=== PATIENT | female | born 2000 | race Caucasian/White ===

== ENCOUNTER 2022-01-28 15:42 | Emergency (ER) | payer BC, SELFPAY ==
[2022-01-28 15:50] VITALS: BP 108/70; PULSE 106; RESP 20; TEMP 36.6; O2SAT 99; BMI 20.3
--- NOTE | 2022-01-28 16:19 | ED.SKABFB ---
HPI - Skin/Abscess/Foreign Bdy General Chief complaint: Skin/Abscess/Foreign Body Stated complaint: Possible leg infection Time Seen by Provider: 01/28/22 15:44 Source: patient Mode of arrival: ambulatory Limitations: no limitations History of Present Illness HPI narrative: Patient presents with skin lesion on her lateral left calf for the past 2 days. Initially started as a localized tender papule. Over the last 2 days she has noticed increased surrounding redness. Last night she started having fatigue, body aches and a mild headache. There is no fever, no nausea vomiting. She has noted no drainage from the lesion. She showed it to a co-worker who marked the surrounding area of redness and applied some antibiotic ointment and told her to seek medical care. Patient is not immunocompromised, she does not have any history of diabetes or other chronic illness. She had a similar papular lesion on her elbow about a month ago that did not require any management and did not have surrounding redness. She also had what sounds like a steroid injection into a stye of her left eyelid around this same time frame, is improving. She notes no other systemic symptoms like nausea or vomiting. No prior history of MRSA infections, no recent exposure to unusual bacterial infections, no pertinent travel. She has a notable history of anxiety disorder but denies any other long-term health problems. Long-term medications are Vyvanse and an SSRI. Related Data Home Medications Medication Instructions Recorded Confirmed fluoxetine 40 mg capsule 40 mg PO DAILY 01/28/22 01/28/22 lisdexamfetamine 40 mg capsule 40 mg PO DAILY 01/28/22 01/28/22 (Vyvanse) Previous Rx's Medication Instructions Recorded sulfamethoxazole 800 1 tab PO BID #20 tabs 01/28/22 mg-trimethoprim 160 mg tablet Allergies Allergy/AdvReac Type Severity Reaction Status Date / Time No Known Drug Allergies Allergy Verified 01/28/22 15:55 Review of Systems Narrative: Notable for the generalized and skin symptoms as above. Denies any other HEENT, respiratory, cardiovascular, GI or urinary changes. [facility] Social History Smoking Status: Never smoker Do you use any of these nicotine containing products: E-Cigarettes How often do you have a drink containing alcohol: 2-3 times a week How many standard drinks containing alcohol do you have on a typical day: 7 to 9 How often do you have six or more drinks on one occasion: Weekly AUDIT-C Alcohol total score: 9 Non-prescribed substance use: denies use Exam Const: Vital Signs, click to edit/add: Vital Signs - 24 hr 01/28/22 15:50 Temperature 97.8 F Pulse Rate [Left P ulse Oximeter] 106 H Respiratory Rate 20 Blood Pressure [Ri ght Upper Arm] 108/70 Pulse Oximetry 99 Oxygen Delivery Me thod Room Air Documenting provider has reviewed patient's vital signs: yes Common normals: no apparent distress General appearance: cooperative and well kempt; not ill appearing HENMT: Common normals: normocephalic Head and scalp: normocephalic Mouth: oral and palatal mucosa normal Throat: posterior oropharynx normal Eye: Common normals: conjunctivae normal and no scleral icterus General eye: normal appearance of both eyes Conjunctiva: conjunctiva(e) normal Neck & C-Spine: Common normals: full ROM and no lymphadenopathy Resp: Common normals: normal respiratory effort and clear to auscultation bilaterally Auscultation: clear to auscultation bilaterally Cardio: Common normals: regular rate, regular rhythm, S1 normal heart sound, S2 normal heart sound, no murmurs and peripheral pulses 2+ throughout Rate: regular rate Rhythm: regular rhythm Heart sounds: S1 normal and S2 normal Peripheral pulses: pulses 2+ throughout Extremity: Other: Left knee and ankle with normal range of motion. There is a 1 cm pustular lesion on the lateral left calf. There is a 5 cm wide by 7 cm tall surrounding area of induration and erythema with warmth. No fluctuance, no signs of foreign body. Mildly tender to palpation. Area of cellulitis has been marked. Normal pedal pulses. Healed similar pustular lesion on the right elbow in area described. Neuro: Motor exam: no tremor noted and no movement abnormalities noted Psych: Appearance: well kempt Activity/motor behavior: appropriate eye contact Mood and affect: euthymic mood Skin: Narrative: Healed skin lesion right elbow, left calf lesion in area described, no other areas of broken skin, rashes or signs of trauma. Course Vital Signs Vital signs: Initial Vital Signs Temperature 97.8 F 01/28/22 15:50 Temperature Source Temporal Artery Scan 01/28/22 15:50 Pulse Rate 106 H 01/28/22 15:50 Respiratory Rate 20 01/28/22 15:50 Blood Pressure 108/70 01/28/22 15:50 Blood Pressure Mean 82 01/28/22 15:50 Blood Pressure Position Sitting 01/28/22 15:50 Pulse Oximetry 99 01/28/22 15:50 Oxygen Delivery Method 01/28/22 15:50 Vital Signs Temperature 97.8 F 01/28/22 15:50 Pulse Rate 106 H 01/28/22 15:50 Respiratory Rate 20 01/28/22 15:50 Blood Pressure 108/70 01/28/22 15:50 Pulse Oximetry 99 01/28/22 15:50 Oxygen Delivery Method 01/28/22 15:50 Temperature 97.8 F 01/28/22 15:50 Pulse Rate 106 H 01/28/22 15:50 Respiratory Rate 20 01/28/22 15:50 Blood Pressure 108/70 01/28/22 15:50 Pulse Oximetry 99 01/28/22 15:50 Oxygen Delivery Method 01/28/22 15:50 MDM - Skin/Abscess/Foreign Bdy MDM Narrative Medical decision making narrative: Cellulitis without signs of abscess. Discussed plan of care, importance of follow-up if not improving in 48 hours. Counseled that the lesion may worsen for the 1st 24 hours on antibiotics. manager supply chain the antibiotics today so that they are available 1st thing tomorrow morning for your next dose, as it can be more difficult to get these on Sundays. Okay to use Tylenol and ibuprofen as needed. Rest for today. All questions answered. Discharge Plan Discharge Clinical Impression: Cellulitis Patient Disposition: Home, Self-Care Condition: Stable Instructions: Cellulitis (ED) Additional Instructions: I am suspecting that you carry a skin bacteria known as MRSA. This likely caused the elbow lesion that you showed me today. The infection in your leg is also caused by bacteria. We need to start antibiotics. As we discussed, please remember that this can worsen for the 1st 24 hours. Please rock picker the antibiotics today and your next dose will be due 1st thing tomorrow morning. Do your best to stay off of your feet today to reduce swelling. It is okay to take Tylenol and/or ibuprofen for fever. It is common that headaches, nausea, fatigue and body aches when you have cellulitis. He should be improving within 48 hours. Based on your vital signs, I do not recommend blood work, blood cultures or additional tests at this time. Begin the antibiotics as discussed and follow up if you are not starting to notice improvement on Sunday. Come back to the emergency department if you are significantly ill in the interim. Activity Level: Activity as Tolerated Discharge Diet: Regular Prescriptions: New sulfamethoxazole-trimethoprim 800-160 mg tablet 1 tab PO BID Qty: 20 0RF No Action fluoxetine 40 mg capsule 40 mg PO DAILY Label Comments: TAKE 1 CAPSULE BY MOUTH EVERY DAY Vyvanse 40 mg capsule 40 mg PO DAILY Label Comments: TAKE 1 CAPSULE BY MOUTH EVERY DAY Stand Alone Forms: Package Conciergeth Info Instructions
--- OUTSIDE RECORDS SUMMARY | 2022-01-28 16:45 | XMS_ITS | Encounter Summary ---
:2000 Author Organization [facility] Address [address] [facility] [place] [address] Care Team Providers Name Role Phone Maribel Limon MD Primary Care Provider [phone] Kassi Vidales MD Unavailable Reason for Visit Reason Comments Urgent Care Consult expose to strep Encounter Details Date Type Department Care Team Description 09/12/2020 Office Visit [facility] Maribel Stephens Strep th roat (Primary Urgent Care Adam Clark MD Dx) [address] [phone] Social History Tobacco Use Types Packs/Day Years Used Date Light Tobacco Smoker Smokeless Tobacco: Never Used Comments: smoke weeds sometimes Financial Resource Strain Answer Date Recorded How hard is it for you to pay for the very basics like Not h angella at all 01/26/2021 food, housing, medical care, and heating? Food Insecurity Answer Date Recorded Within the past 12 months, you worried that your food would Never true 01/26/2021 run out before you got money to buy more. Within the past 12 months, the food you bought just didn't N ever true 01/26/2021 last and you didn't have money to get more. Housing Stability Answer Date Recorded In the last 12 months, was there a time when you were not No 01/26/2021 able to pay the mortgage or rent on time? In the last 12 months, how many places have you lived? Not a sked In the last 12 months, was there a time when you did not hav e No 01/26/[address] or slept in a snf (including now)? Sex Assigned at Date Recorded Not on file COVID-19 Exposure Response Date Recorded In the last month, have you been in contact with No / Unsure 09/12/2020 6:59 PM CDT someone who was confirmed or suspected to have Coronavirus / COVID-19? documented as of this encounter Last Filed Vital Signs Vital Sign Reading Time Taken Comments Blood Pressure 115/78 09/12/2020 7:12 PM CDT Pulse 74 09/12/2020 7:12 PM CDT Temperature 36.8 ??C (98.2 ??F) 09/12/2020 7:12 PM CDT Respiratory Rate 18 09/12/2020 7:12 PM CDT Oxygen Saturation 97% 09/12/2020 7:12 PM CDT Inhaled Oxygen Concentration - - Weight 66.7 kg (147 lb) 09/12/2020 7:12 PM CDT Height - - Body Mass Index - - documented in this encounter Patient Instructions Patient InstructionsMaribel Stephens MD - 09/12/2020 7:10 PM CDT Images from the original note were not included. Patient Education Pharyngitis: Strep (Presumed) You have pharyngitis (sore throat). The healthcare staff may think your sore throat is caused by a bacteria called Group A streptococcus (strep).??This is often called strep throat. This is diagnosed by either a rapid strep test, which gives immediate results, or a throat culture, or both. Strep throat can cause throat pain that is worse when swallowing, aching all over, headache,??swollen lymph nodes or glands in the neck, and fever. The infection is contagious. It often spreads by coughing, kissing,??or touching others after touching your mouth or nose. An antibiotic is given to treat the infection. Antibiotics are prescribed by doctors to treat bacterial infections, not viral infections. Home care ?? Rest at home. Drink plenty of fluids so you won???t get dehydrated. ?? Stay home from work or school for the first 24 hours of taking the antibiotics, or as directed bythe healthcare provider. After this time, you won't be contagious. You can then return to work or school if you are feeling better, or as directed by the provider.? Take the antibiotic medicine for the full 10 days, or as directed by the provider, even when you feel better or your symptoms improve. This is very important to make sure the infection is fully treated. It's also important to prevent medicine-resistant germs from growing. It's also the best way to prevent rheumatic fever, which can affect your heart and other parts of the body.??If you were given an antibiotic shot, your provider will tell you if more antibiotics are needed. ?? You may use acetaminophen or ibuprofen to control pain or fever, unless another medicine was prescribed for this. If you have chronic liver or kidney disease or ever had a stomach ulcer or gastrointestinal bleeding, talk with your provider before using these medicines. ?? Use throat lozenges or a throat-numbing spray to help reduce throat pain. Gargling with warm saltwater can also help reduce throat pain. Dissolve 1/2 teaspoon of salt in 1 glass of warm water.? Don???t eat salty or spicy foods. These can irritate the throat. Follow-up care Follow up with your healthcare provider or our staff if you don't feel better in 72 hours, or as directed. When to get medical advice Call your healthcare provider right away if any of these occur: ?? Fever of??100.4??F (38??C), or higher, or as directed by your provider ?? New or worse ear pain, sinus pain, or headache ?? Painful lumps in the back of neck ?? Stiff neck ?? Lymph nodes that get larger or neck swelling ?? Can???t open mouth wide due to throat pain ?? Signs of dehydration, such as very dark urine or no urine, sunken eyes, dizziness ?? Noisy breathing ?? Muffled voice ?? New rash ?? Symptoms are worse ?? New symptoms develop Call 911 Call 911 if you have any of these symptoms: ?? Can't swallow, especially saliva, with a lot of drooling ?? Trouble breathing or wheezing ?? Feeling faint ?? Can't talk ?? Feeling of doom Prevention Here are steps you can take to help prevent an infection: ?? Keep good handwashing habits. ?? Don???t have close contact with people who have sore throats, colds, or other upper respiratory infections. ?? Don???t smoke, and stay away from secondhand smoke. ?? Stay up to date with all of your vaccines. [employer] last reviewed this educational content on 06/07/2019 ?? 7799-4074 [employer]. All rights reserved. This information is not intended as a substitute for professional medical care. Always follow your healthcare professional's instructions. Patient Education Pharyngitis: Strep (Confirmed) You have had a positive test for strep throat. Strep throat is a contagious illness. It's spread by coughing, kissing, sharing glasses or eating utensils, or by touching others after touching your mouth or nose. Symptoms include throat pain that is worse with swallowing, aching all over, headache, swollen lymph nodes at the front of the neck, and red swollen tonsils sometimes with white patches and fever. It's treated with antibiotic medicine. This should help you start to feel better in 1 to 2 days. Home care ?? Rest at home. Drink plenty of fluids so you won't get??dehydrated. ?? No work or school for the first 2 days of taking the antibiotics. You can then return to school or work if you are feeling better, have been taking the antibiotic for at least 24 hours and don't have a fever.? Take??antibiotic medicine for the full 10 days, even if you feel better. This is very important to ensure the infection is treated completely.??It's also important to prevent medicine-resistant germs from developing.??If you were given an antibiotic shot, you don't need any more antibiotics. ?? You may use acetaminophen??or ibuprofen to control pain or fever, unless another medicine was prescribed for this. Talk with your healthcare provider before taking these medicines if you have??chronic liver or kidney disease or if you have??had a stomach ulcer or gastrointestinal bleeding. ?? Throat lozenges or sprays help reduce pain. Gargling with warm saltwater will also reduce throat pain. Dissolve 1/2 teaspoon of salt in 1 glass of warm water. This may be useful just before meals.? Soft foods and cool or warm fluids are best. Don't eat salty or spicy foods. Follow-up care Follow up with your healthcare provider or our staff if you don't get better over the next week. When to get medical advice Call your healthcare provider right away or get immediate medical care if any of these occur: ?? Fever of 100.4??F (38??C) or higher, or as directed by your healthcare provider ?? New or worsening ear pain, sinus pain, or headache ?? Painful lumps in the back of neck ?? Stiff neck ?? Lymph nodes??getting larger or becoming soft in the middle ?? You have trouble swallowing liquids or you can't??open your mouth wide because of??throat pain ?? Signs of dehydration. These include very dark urine or no urine, sunken eyes, and dizziness. ?? Noisy breathing ?? Muffled voice ?? Rash Call 911 Call 911right away if you: ?? Have trouble breathing ?? Can't swallow or talk Prevention Here are steps you can take to help prevent an infection: ?? Wash your hands often with soap and clean, running water for at least 20 seconds. ?? Don???t have close contact with people who have sore throats, colds, or other upper respiratory infections. ?? Don???t smoke, and stay away from secondhand smoke. [employer] last reviewed this educational content on 07/06/2019 ?? [id number] [employer]. All rights reserved. This information is not intended as a substitute for professional medical care. Always follow your healthcare professional's instructions. documented in this encounter Progress Notes Maribel Stephens MD - 09/12/2020 7:10 PM CDT ASSESSMENT/ PLAN: Strep throat - amoxicillin (AMOXIL) 875 MG tablet; Take 1 tablet (875 mg) by mouth 2 times daily Patient was counseled that to prevent spreading the strep infection that she should stay out of public places, work or school until she has completed 24 hours of antibiotic treatment Symptomatic treat with gargles, lozenges, and OTC analgesic as needed. Follow-up with primary clinicif not improving. SUBJECTIVE: Chief Complaint Patient presents with ??? Urgent Care ??? Consult expose to strep Temi Sam is a 20 year old female with a chief complaint of sore throat. Onset of symptoms was today . Her boyfriend just tested positive for strep throat Course of illness: sudden onset, still present and constant. Severity moderate Current and Associated symptoms: sore throat Treatment measures tried include None tried. Predisposing factors include exposure to strep. No past medical history on file. There is no problem list on file for this patient. ALLERGIES: Patient has no known allergies. FLUoxetine (PROZAC) 20 MG capsule, TAKE 3 CAPSULES BY MOUTH DAILY levonorgestrel (MIRENA) 20 MCG/24HR IUD, 1 each by Intrauterine route once No current facility-administered medications on file prior to visit. Social History Tobacco Use ??? Smoking status: Light Tobacco Smoker ??? Smokeless tobacco: Never Used ??? Tobacco comment: smoke weeds sometimes Substance Use Topics ??? Alcohol use: Not on file No family history on file. ROS: CONSTITUTIONAL:NEGATIVE for fever, chills, INTEGUMENTARY/SKIN: NEGATIVE for worrisome rashes, or lesions EYES: NEGATIVE for vision changes or irritation RESP:NEGATIVE for significant cough or SOB GI: NEGATIVE for nausea, abdominal pain, or change in bowel habits OBJECTIVE: BP 115/78 Pulse 74 Temp 98.2 ??F (36.8 ??C) Resp 18 Wt 66.7 kg (147 lb) SpO2 97% GENERAL APPEARANCE: healthy, alert and no distress EYES: EOMI, PERRL, conjunctiva clear HENT: ear canals and TM's normal. Nose normal. Pharynx erythematous with no exudate noted. NECK: supple, non-tender to palpation, no adenopathy noted RESP: lungs clear to auscultation - no rales, rhonchi or wheezes CV: regular rates and rhythm, normal S1 S2, no murmur noted ABDOMEN: soft, nontender, no HSM or masses and bowel sounds normal SKIN: no suspicious lesions or rashes Rapid Strep test is positive documented in this encounter Plan of Treatment Not on filedocumented as of this encounter Procedures Procedure Name Priority Date/Time Associated Comments Diagnosis STREPTOCOCCUS A RAPID Routine 09/12/2020 7:15 PM Results for this SCREEN W REFELX TO PCR CDT proce dure are in the results section. documented in this encounter Results (ABNORMAL) Streptococcus A Rapid Scr w Reflx to PCR (09/12/2020 7:15 PM CDT) Component Value Ref Test Analysis Performed At [facility] Range Method Time Signature Strep Specimen Throat 09/12/2020 [place] Description 7:20 PM CDT [facility] Streptococcus Positive (A) NEG^Nega 09/12/2020 [place] Group A Rapid tive 7:33 PM CDT CLINICS [facility] Comment: Group A Streptococcal antigen d etected by immunoassay. Specimen Anatomical Collection Method Collection Time Receive d Time (Source) Location / / Volume Laterality Specimen from 09/12/2020 7:15 PM 09/13/19 7:22 throat CDT PM CDT (specimen) Maribel Stephens MD LAB - MICRO GENERAL ORDERABL Performing Organization Address City/State/ZIP Code Phon e Number [facility] [address] [place] [address] documented in this encounter Visit Diagnoses Diagnosis Strep throat - Primary Streptococcal sore throat documented in this encounter Care Teams Vat Operator Relationship Specialty Start Date End Date Maribel Limon, PCP - General Pediatrics 02/19/1701/25 Kassi Vidales MD Pediatric Gastroenterology [facility] [place] [id number] documented as of this encounter
--- OUTSIDE RECORDS SUMMARY | 2022-01-28 16:45 | XMS_ITS | Clinical Summary ---
:2000 Author Organization [place] Address [address] [facility] [place] [address] Care Team Providers Name Role Phone Kassi Vidales MD Unavailable [phone] Lavern Tristan MD Primary Care Provider [phone] Allergies No known active allergies Medications Medication Sig Dispensed Refills Start Date End Date Status FLUoxetine (PROZAC) TAKE 3 CAPSULES BY 0 08/27/2020 Active 20 MG capsule MOUTH DAILY levonorgestrel 1 each by 0 Activ e (MIRENA) 20 MCG/24HR Intrauterine route IUD once amoxicillin (AMOXIL) Take 1 tablet (875 20 tablet 0 09/12/2020 Active 875 MG mg) by mouth 2 tabletIndications: times daily Strep throat Active Problems No known active problems Social History Tobacco Use Types Packs/Day Years [...] place to sleep or slept in a mcc (including now)? Sex Assigned at Date Recorded Not on file Last Filed Vital Signs Vital Sign Reading Time Taken Comments Blood Pressure 115/78 09/12/2020 7:12 PM CDT Pulse 74 09/12/2020 7:12 PM CDT Temperature 36.8 ??C (98.2 ??F) 09/12/2020 7:12 PM CDT Respiratory Rate 18 09/12/2020 7:12 PM CDT Oxygen Saturation 97% 09/12/2020 7:12 PM CDT Inhaled Oxygen Concentration - - Weight 66.7 kg (147 lb) 09/12/2020 7:12 PM CDT Height 165.1 cm (5' 5) 03/04/2017 6:56 PM CDT Body Mass Index - - Plan of Treatment Health Maintenance Due Date Last Done Comments ADVANCE CARE PLANNING 2001 ANNUAL REVIEW OF HM ORDERS 2001 CHLAMYDIA SCREENING 2001 Pneumococcal Vaccine: 08/21/2007 11/25/2002, 05/23/2002, Pediatrics (0 to 5 Years) 02/18/2002, Additional and At-Risk Patients (6 to history exists 64 Years) (1 - PCV) DTAP/TDAP/TD IMMUNIZATION 2012 08/23/2006, 11/25/2002 , (6 - Tdap) 02/18/2002, Additional history exists HIV SCREENING 2016 HEPATITIS C SCREENING 08/21/2019 COVID-19 Vaccine (3 - 10/10/2020 08/15/2020, 07/18/2020 Booster for Moderna series) PHQ-2 (once per calendar 05/07/2021 year) INFLUENZA VACCINE (#1) 2022 04/28/2021, 02/19/2020, 07/18/2019, Additional history exists PREVENTIVE CARE VISIT 04/28/2022 04/28/2021, 12/15/2019, 11/13/2018 HEPATITIS B IMMUNIZATION Completed 08/21/2002, 05/23/2002, 02/18/2002 IPV IMMUNIZATION Completed 08/23/2006, 08/21/2002, 2001, Additional history exists HPV IMMUNIZATION Completed 07/15/2013, 02/07/2013, 12/25/2012 MENINGITIS IMMUNIZATION Aged Out No longe r eligible based on patient 's age to complete this topic Insurance Payer Benefit Plan / Subscriber ID Effective Dates Phone Addre ss Type Group BCBS BCBS OUT OF [id number] 2017-Lilli [phone] [address] [address] Indemnity STATE [address] [place] [address] Care Teams Emergency Department Rn Relationship Specialty Start Date End Date Lavern Tristan PCP - General Pediatrics 01/26/21 MD Caitlyn [facility] [address] [place], [place] [id number] Kassi Vidales MD Pediatric Gastroenterology [address] [place] [id number]
--- OUTSIDE RECORDS SUMMARY | 2022-01-28 16:46 | XMS_ITS ---
:2000 Author Care Team Providers Name Role Phone Wilbert Barney Primary Care Provider Unavailable Allergies Code Code System Name Reaction Severity Status Onset NKDA ? Medications Name Status Start Date Stop Date ? ? amoxicillin 500 mg capsule Active ? Not a vailable TAKE 1 CAPSULE BY MOUTH TWICE DAILY FOR 10 DAYS amoxicillin 875 mg tablet Active ? Not av ailable azithromycin 250 mg tablet Active ? Not a vailable clindamycin HCl 300 mg capsule Active ? N ot available TAKE 1 CAPSULE BY MOUTH TWICE DAILY FOR 7 DAYS COVID-19 test specimen collection Active ? Not available TEST DIRECTED TODAY dextroamphetamine-amphetamine ER 10 mg 24hr capsule,extend relea se Active ? Not available TAKE 1 CAPSULE BY MOUTH EVERY DAY IN THE MORNING FOR 14 DAYS dextroamphetamine-amphetamine ER 20 mg 24hr capsule,extend relea se Active ? Not available TAKE 1 CAPSULE BY MOUTH EVERY DAY IN THE MORNING fluconazole 150 mg tablet Active ? Not av ailable fluoxetine 20 mg capsule Active ? Not liana ilable TAKE ONE CAPSULE BY MOUTH DAILY FOR 7 DAYS THEN INCREASE TO 2 C APSULES DAILY fluoxetine 60 mg tablet Active ? Not avai lable TAKE 1 TABLET BY MOUTH EVERY DAY metronidazole 500 mg tablet Active ? Not available TAKE 1 TABLET BY MOUTH TWICE DAILY FOR 7 DAYS Problems Name Status Onset Date Source ? Acute Pharyngitis Active 07/27/2021 ? Procedures None recorded. Results Lab Results Date Name Specimen Result Interpretation Description Value Range Status Address ? 07/27/2021 Mononucleosis, Blood ? Result negative ? ? [facility] [place]: [address] , [place] 07/27/2021 Streptococcus Throat ? Result positive ? ? [facility] [place]: [address] , [place] Past Encounters 07/27/2021 Acute Pharyngitis Wilbert Barney PA: [address], [place] [address], Ph. Social History None recorded. Vaccine List Vaccine Type COVID-19, mRNA, LNP-S, PF, 100 mcg/0.5 m L dose (Moderna) 07/18/2020 08/15/2020 04/19/2021 DTaP 2001 2001 02/18/2002 08/23/2006 DTaP-Hib 11/25/2002 Hep A, ped/adol, 2 dose 08/23/2006 01/10/2008 Hep B, adolescent or pediatric 05/23/2002 08/21/2002 Hep B, unspecified formulation 02/18/2002 Hib (PRP-T) 2001 2001 02/18/2002 HPV, quadrivalent 12/25/2012 02/07/2013 07/15/2013 influenza, injectable, quadrivalent 02/19/2020 influenza, injectable, quadrivalent, pre servative free 03/02/2015 03/05/2017 07/18/2019 04/28/2021 influenza, live, intranasal 02/13/2008 12/24/2009 influenza, live, intranasal, quadrivalen t 12/25/2012 influenza, seasonal, injectable 03/20/2007 influenza, seasonal, injectable, preserv ative free 05/16/2012 IPV 2001 2001 08/21/2002 08/23/2006 meningococcal B, OMV 12/15/2019 04/02/2020 meningococcal MCV4P 12/25/2012 10/12/2017 MMR 08/21/2002 MMRV 08/23/2006 pneumococcal conjugate PCV 7 2001 02/18/2002 05/23/2002 11/25/2002 Tdap 12/25/2012 varicella 08/21/2002 Plan of Care Patient Instructions Push fluids and rest. Tylenol 1 gram three times daily as need ed for pain. Ibuprofen 600mg three times daily as nee ded for pain. Gargles or lozenges as needed for comfor t. Take Amoxicillin as prescribed. See care instructions. PCP or UC follow up in 4-5 days if not i mproving, sooner if problems, to ED if worsening. Reminders Provider Appointments None recorded. ? ? Lab None recorded. ? ? Referral None recorded. ? ? Procedures None recorded. ? ? Surgeries None recorded. ? ? Imaging None recorded. ? ? Vitals Blood Pressure 94/67 mm[Hg]
--- OUTSIDE RECORDS SUMMARY | 2022-01-28 16:46 | XMS_ITS | Encounter Summary ---
:2000 Author Organization [facility] Address [address], [place] [address] Care Team Providers Name Role Phone Unavailable Primary Care Provider Unavailable Reason for Visit Procedure/Equipment (Routine) - Incomplete Specialty Diagnoses / Procedures Referred By Contact Refer red To Contact Diagnoses Pain in estrella, unspecified laterality De Ball MD Procedures XR Tibia Fibula Lt 2 Views [address] [facility] [place], [place] [address] Referral ID Status Reason Start Date Expiration Date Visits V isits Requested Authorized [id number] Incomplete 12/04/2018 03/04/2020 1 1 Encounter Details Date Type Department Care Team Description 12/04/2018 [facility] De Ball, Pain in estrella, Procedure [address] [facility] [place] [id number] [phone] Social History Tobacco Use Types Packs/Day Years Used Date Smoking Tobacco: Never Sex Assigned at Date Recorded Not on file documented as of this encounter Plan of Treatment Not on filedocumented as of this encounter Procedures Procedure Name Priority Date/Time Associated Diagnosis Comme nts XR TIBIA FIBULA LT Routine 12/04/2018 2:35 PM Pain in estrella, Re sults for this 2 VIEWS CDT unspecified procedure are i n laterality the results section. XR TIBIA FIBULA RT Routine 12/04/2018 2:35 PM Pain in estrella, Re sults for this 2 VIEWS CDT unspecified procedure are i n laterality the results section. documented in this encounter Results XR Tibia Fibula Rt 2 Views (12/04/2018 2:35 PM CDT) Anatomical Region Laterality Modality Lower Extremity, Knee, Leg, Foot & Ankle Digital Radiography Specimen (Source) Anatomical Collection Method Collection Time Re ceived Time Location / / Volume Laterality 12/04/2018 2:23 PM CDT Impressions 12/04/2018 2:57 PM CDT COMPARISON: ??None. FINDINGS: ??Right tib-fib 2 views. No ac raza bony abnormalities. Joint spaces are intact Procedure Note Rowdy Call MD - 12/04/2018 IMPRESSION COMPARISON: None. FINDINGS: Right tib-fib 2 views. No acut e bony abnormalities. Joint spaces are intact De MONTGOMERY GD XR Tibia Fibula Lt 2 Views (12/04/2018 2:35 PM CDT) Anatomical Region Laterality Modality Lower Extremity, Knee, Leg, Foot & Ankle Digital Radiography Specimen (Source) Anatomical Collection Method Collection Time Re ceived Time Location / / Volume Laterality 12/04/2018 2:23 PM CDT Impressions 12/04/2018 2:55 PM CDT COMPARISON: ??None. FINDINGS: ??Left tib-fib 2 views. No acu te bony abnormalities. Small eccentric lucent and sclerotic lesion which is well-circumscribed in the lateral aspect of the distal tibial metadiaphysis most likel y represents a small fibrous cortical de fect. Visualized joint spaces are intact. Procedure Note Rowdy Call MD - 12/04/2018 IMPRESSION COMPARISON: None. FINDINGS: Left tib-fib 2 views. No acute bony abnormalities. Small eccentric lucent and sclerotic lesion which is well-circumscribed in the lateral aspect of the distal tibial metadiaphysis most likely represents a small fibrous cortical defect. Visualize d joint spaces are intact. De Ball MD RAD GD documented in this encounter Visit Diagnoses Diagnosis Pain in estrella, unspecified laterality documented in this encounter
--- OUTSIDE RECORDS SUMMARY | 2022-01-28 16:46 | XMS_ITS | Encounter Summary ---
:2000 Author Organization [place] Address [address] [place] [address] Care Team Providers Name Role Phone Maribel Limon MD Primary Care Provider [phone] Kassi Vidales MD Unavailable [phone] Reason for Visit Reason Comments Abdominal Pain intermittent lower abd pain that happens every day, with bloating, c nausea and diarrhea/constipa tion X 2 months, seen at PCP and referred to pedicatric GI, [facility], no tests have been run yet. also c/o overall exhausion, falling asleep in class and going to bed at 8p. per mom pt had a sync opal episdoe around 1815 tonight Encounter Details Date Type Department Care Team Description 03/04/2017 Emergency [facility] Laura Aguero, Abd ominal pain, generalized; [facility] Emergency Hypersomnolence Dept [facility] [address] [place] [address] [place] [address] [facility] [address] (Wo rk) Social History Tobacco Use Types Packs/Day Years Used Date Never Assessed Financial Resource Strain Answer Date Recorded How [...] on file documented as of this encounter Last Filed Vital Signs Vital Sign Reading Time Taken Comments Blood Pressure 116/79 03/04/2017 8:00 PM CDT Pulse 53 03/04/2017 8:00 PM CDT Temperature 36.4 ??C (97.5 ??F) 03/04/2017 6:56 PM CDT Respiratory Rate 20 03/04/2017 6:56 PM CDT Oxygen Saturation 99% 03/04/2017 6:56 PM CDT Inhaled Oxygen Concentration - - Weight 55.1 kg (121 lb 6.4 oz) 03/04/2017 6:56 PM CDT Height 165.1 cm (5' 5) 03/04/2017 6:56 PM CDT Body Mass Index 20.2 03/04/2017 6:56 PM CDT Body Mass Index Percentile 50.03 % 03/04/2017 6:56 PM CD T Growth Chart: [facility] (Girls, 2-20 Years) documented in this encounter Discharge Instructions Discharge InstructionsPoLaura hemphill MD - 03/04/2017 8:58 PM CDT Images from the original note were not included. MiraLAX 2 times a day, increase your fluid intake. Set up an appointment with your primary doctor inthe clinic this week. Abdominal Pain in Children Children often complain of a ???tummy ache.?? This is pain in the stomach or belly. Abdominal pain is very common in children. In many cases there???s no serious cause. But stomach pain can sometimes point to a serious problem, such as appendicitis, so it is important to know when to seek help. Causes of abdominal pain Abdominal pain in children can have??many possible causes. Any problem with the stomach or intestines can lead to abdominal pain. Common problems include constipation, diarrhea, or gas. Infection of the appendix (appendicitis) almost always causes pain. An infection in the bladder or urinary tract, oreven infection in the throat or ear, can cause a child to feel pain in the belly. And eating too much food, food that has gone bad, or food that the child has a hard time digesting can lead to abdominal pain. For some children, stress or worry about some upcoming event, such as a test, causes them to feel real pain in their bellies. Call 911 or go to the emergency room Consider it an emergency if your child:? Has blood or pus in vomit or diarrhea, or has green vomit ?? Shows signs of bloating or swelling in the belly ?? Repeatedly arches his back or draws his or her knees to the chest ?? Has increased or severe pain ?? Is unusually drowsy, listless, or weak ?? Is unable to walk When to call the healthcare provider Children may complain of a tummy ache for many reasons. Many cases can be soothed with rest and reassurance. But if your child shows any of the symptoms listed below, call the healthcare provider: ?? Abdominal pain that lasts longer than 2 hours. ?? Fever (see Fever and children, below) ?? Inability to keep even small amounts of liquid down. ?? Signs of dehydration, such as no urine output for more than 8 hours, dry mouth and lips, and feeling very tired.? Pain during urination. ?? Pain in??one specific area, especially low on the right side of the belly. Treating abdominal pain If a healthcare provider???s attention is needed, he or she will examine the child to help find the cause of the pain. Certain causes, such as appendicitis or a blocked intestine, may need emergency treatment. Other problems may be treated with rest, fluids, or medicine. If the healthcare provider can???t find a physical reason for your child???s pain, he or she can help you find other factors, such as stress or worry, that might be making your child feel sick. At home, you can help the child feel better by doing the following: ?? Have your child lie face down if he or she appears to be suffering from gas pain. ?? If your child has diarrhea but is hungry, feed him or her a regular diet, but avoid fruit juice or soda. These are high in sugar and can worsen diarrhea. Sports drinks such as??electrolyte solutionsalso may contain lots of??sugar, so be sure to read labels. Water is fine.? Avoid severely limiting your child's diet. Doing so may cause the diarrhea to last longer. ?? Have your child take any prescribed medicines as directed by your healthcare provider. ?? Check with your healthcare provider before giving your child any qemu-xgj-lylffnb medicines. Preventing abdominal pain If your child is prone to abdominal pain, the following things may help: ?? Keep track of when your child gets the pain. Make note of any foods that seem to cause stomach pain. ?? Limit the amount of sweets and snacks that your child eats. Feed your child plenty of fruits, vegetables, and whole grains. ?? Limit the amount of food you give your child at??one time. ?? Make sure your child washes his or her hands before eating. ?? Don???t let your child eat right before bedtime. ?? Talk with your child about anything that may be causing him or her worry or anxiety. ?? Fever and children Always use a digital thermometer to check your child???s temperature. Never use a mercury thermometer. For infants and toddlers, be sure to use a rectal thermometer correctly. A rectal thermometer may accidentally poke a hole in (perforate) the rectum. It may also pass on germs from the stool. Always follow the product maker???s directions for proper use. If you don???t feel comfortable taking a rectal temperature, use another method. When you talk to your child???s healthcare provider, tell him or her which method you used to take your child???s temperature. Here are guidelines for fever temperature. Ear temperatures aren???t accurate before 6 months of age. Don???t take an oral temperature until your child is at least 4 years old. Infant under 3 months old: ?? Ask your child???s healthcare provider how you should take the temperature. ?? Rectal or forehead (temporal artery) temperature of 100.4??F (38??C) or higher, or as directed bythe provider ?? Armpit temperature of 99??F (37.2??C) or higher, or as directed by the provider Child age 3 to 36 months: ?? Rectal, forehead (temporal artery), or ear temperature of 102??F (38.9??C) or higher, or as directed by the provider ?? Armpit temperature of 101??F (38.3??C) or higher, or as directed by the provider Child of any age: ?? Repeated temperature of 104??F (40??C) or higher, or as directed by the provider ?? Fever that lasts more than 24 hours in a child under 2 years old. Or a fever that lasts for 3 days in a child 2 years or older. ?? Date Last Reviewed: 11/05/2015 ?? [id number] [employer]. [address] [place] [address]. All rights reserved. This information is not intended as a substitute for professional medical care. Always follow your healthcare professional's instructions. documented in this encounter Medications at Time of Discharge Medication Sig Dispensed Refills Start Date End Date Sertraline HCl (ZOLOFT Take 25 mg by mouth 0 09/12/2020 PO) daily documented as of this encounter ED Notes Hermila Lackey RN - 03/04/2017 6:58 PM CDT Bed: ED19 Expected date: Expected time: Means of arrival: Comments: Triage - abd pain Laura Aguero MD - 03/04/2017 6:50 PM CDT History Chief Complaint: Abdominal Pain HPI Temi Sam is an otherwise healthy, fully immunized, 16 year old female who presents with parents for intermittent lower abdominal pain. Patient reports that she has been experiencing abdominal pain for about 2 month. She called her pediatric clinic to schedule an appointment with her pediatric physician but was referred to pediatric GI; earliest appointment in April. She has, thus far, receivedno kind of lab work to assess her abdominal pain. Patient reports that she experiences diarrhea in the mornings which is worsened by eating. Tonight the patient was laying in bed, with fatigue and general feeling of discomfort, and when she got up to go eat, she got very light headed and had an episode of near syncope. Patient reports that she has started developing chills as well. Since she hasn't been able to be seen by PCP parents brought her in for evaluation of her seemingly worsening symptoms and an onset of constant. Parents deny constipation, she denies current urinary symptoms and reports having normal periods and is currently on her menstrual period. Patient reports drinking about three 32 ounce bottles of water each day. Of note: Father has had mononucleosis recently. Allergies: No Known Allergies Medications: Zoloft PO Past Medical History: History reviewed. No pertinent past medical history. Past Surgical History: History reviewed. No pertinent surgical history. Family History: No family history on file. Social History: Smoking status: Not on File Alcohol use: Not on File Marital Status: Single [1] Review of Systems Constitutional: Positive for fatigue. Cardiovascular: Negative. Gastrointestinal: Positive for abdominal pain and diarrhea. Negative for constipation. Endocrine: Negative. Genitourinary: Negative. Neurological: Positive for syncope (near syncope). All other systems reviewed and are negative. Physical Exam First Vitals: BP: 109/75 Pulse: 68 Temp: 97.5 ??F (36.4 ??C) Resp: 20 Height: 165.1 cm (5' 5) Weight: 55.1 kg (121 lb 6.4 oz) SpO2: 99 % Lying Orthostatic BP: 116/81 Lying Orthostatic Pulse: 54 bpm Sitting Orthostatic BP: 114/88 Sitting Orthostatic Pulse: 60 bpm Standing Orthostatic BP: 117/84 Standing Orthostatic Pulse: 70 bpm Physical Exam Nursing note and vitals reviewed. Constitutional: Appears well-developed and well-nourished, comfortable. HENT: Mouth/Throat: Mucosa is moist. Eyes: Conjunctivae are normal. Pupils are equal, round, and reactive to light. Right eye exhibits no discharge. Left eye exhibits no discharge. No scleral icterus. Cardiovascular: Normal rate, regular rhythm. Normal heart sounds and intact distal pulses. No murmur heard. Pulmonary/Chest: Effort normal and breath sounds normal. No respiratory distress. No wheezes. No rales. Abdominal: Soft. No distension and no mass. No tenderness. No rebound and no guarding. No flank pain. No organomegaly. Musculoskeletal: No joint swelling, no edema in her extremities. Neurological: No cranial nerve deficit. Exhibits normal muscle tone. Coordination normal. GCS eye subscore is 4. GCS verbal subscore is 5. GCS motor subscore is 6. Skin: Skin is warm and dry. No rash noted. No diaphoresis. No erythema. No pallor. Psychiatric: Behavior is normal. Judgment and thought content normal. Emergency Department Course ECG (19:12:18): Rate 65 bpm. MS interval 166. QRS duration 72. QT/QTc 384/399. P-R-T axes 67 84 37. Sinus rhythm with occasional premature ventricular complexes. Normal EKG. Interpreted at 1913 by Laura Aguero MD. Imaging: Radiographic findings were communicated with the patient and family who voiced understanding of the findings. X-ray Abdomen, 1 views: Moderate amount of stool and some gas scattered in nondistended colon. No abnormal small bowel gas. No free intraperitoneal air or abnormal calcifications. Result per radiology. Laboratory: HCG qualitative Urine Negative UA: Urine Blood Large (A) RBC/HPF 36 (H) Mucous urine Present (A) CBC: WNL (WBC 5.3, HGB 14.6, PLT 231) CMP: WNL (Creatinine 0.87) Mononucleosis Negative TSH with free T4 reflex 2.53 Interventions: 195: NS 1L IV Bolus Emergency Department Course: Past medical records, nursing notes, and vitals reviewed. 1930: I performed an exam of the patient and obtained history, as documented above. IV inserted and blood drawn for the above work up to be conducted. An IV was inserted to administer the above interventions. X ray was conducted. EKG was obtained, findings above. Findings and plan explained to the Patient. Patient discharged home with instructions regarding supportive care, medications, and reasons to return. The importance of close follow-up was reviewed. Impression & Plan Medical Decision Making: The patient comes in with 2 concerns. One is intermittent abdominal pain over the last 2 months withalternating firm stools with diarrhea. The second concern is hypersomnolence. She sleeps all the time. Her mom's significant other has had mono over the past 2 months. Her mono test however is negative, it still possible she may have had mono but is now recovering. She has no abdominal pain tonight and her exam is normal. Labs were obtained and came back normal including a comprehensive panel, CBC, and urine. There was some blood in the urine but she is having her menstrual cycle at this time in herpregnancy test was negative. I did a TSH and that's normal, mono test negative. She received a literof normal saline. She had no pain while she was here, a flat plate abdominal x-ray showed moderate stool but otherwise normal. It's possible her bowel symptoms are secondary to this mild constipation but she may also have something more chronic such as irritable bowel syndrome or celiac disease or lactose intolerance. She should get into see a GI doctor for further evaluation and workup. The hypersomnolence needs further workup as well in the clinic. I'm going to have her start on MiraLAX and see her doctor in the clinic this week for recheck. Critical Care time: none Diagnosis: ICD-10-CM 1. Abdominal pain, generalized R10.84 2. Hypersomnolence G47.10 Disposition: discharged to home MiraLAX 2 times a day, increase your fluid intake. Set up an appointment with your primary doctor inthe clinic this week. Discharge Medications: Discharge Medication List as of 03/04/2017 9:32 PM Ziggy Hemphill am serving as a scribe at 7:30 PM on 03/04/2017 to document services personally performed by Laura Aguero MD based on my observations and the provider's statements to me. EMERGENCY DEPARTMENT Laura Aguero MD 03/05/17 0831 documented in this encounter Plan of Treatment Not on filedocumented as of this encounter Procedures Procedure Name Priority Date/Time Associated Comments Diagnosis XR ABDOMEN 1 VIEW STAT 03/04/2017 8:42 PM Resu lts for this CDT procedure are i n the results section. HCG QUALITATIVE URINE STAT 03/04/2017 7:53 PM Results for this CDT procedure are i n the results section. URINE MACROSCOPIC WITH STAT 03/04/2017 7:53 PM Results for this REFLEX TO MICRO CDT procedure ar e in the results section. EKG 12-LEAD, TRACING STAT 03/04/2017 7:12 PM R esults for this ONLY CDT procedure are i n the results section. CBC WITH PLATELETS & STAT 03/04/2017 2:52 PM R esults for this DIFFERENTIAL CDT procedure are i n the results section. TSH WITH FREE T4 STAT 03/04/2017 2:52 PM Resul ts for this REFLEX CDT procedure are i n the results section. MONONUCLEOSIS SCREEN STAT 03/04/2017 2:52 PM R esults for this CDT procedure are i n the results section. COMPREHENSIVE STAT 03/04/2017 2:52 PM Results for this METABOLIC PANEL CDT procedure ar e in the results section. documented in this encounter Results Abdomen XR 1 vw (03/04/2017 8:42 PM CDT) Anatomical Region Laterality Modality Abdomen/Pelvis Digital Radiography Specimen (Source) Anatomical Location Collection Method / Collectio n Time Received Time / Laterality Volume Impressions 03/04/2017 10:52 PM CDT IMPRESSION: Moderate amount of stool and some gas scattered in nondistended colon. No abnormal small bina wel gas. No free intraperitoneal air or abnormal calcific ations. BASSEM MIRANDA MD Narrative 03/04/2017 10:52 PM CDT ABDOMEN ONE VIEW 03/04/2017 8:42 PM HISTORY: Two months of intermittent abdo denisa pain, stool changes, question constipation. COMPARISON: None. Procedure Note Bassem Miranda MD - 03/04/2017Fo rmatting of this note might be different from the original. ABDOMEN ONE VIEW 03/04/2017 8:42 PM HISTORY: Two months of intermittent abdo denisa pain, stool changes, question constipation. COMPARISON: None. IMPRESSION: Moderate amount of stool and some gas scattered in nondistended colon. No abnormal small bina wel gas. No free intraperitoneal air or abnormal calcific ations. BASSEM MIRANDA MD Laura Aguero MD IMG DIAGNOSTIC IMAGING ORDER JONATHAN (ABNORMAL) UA reflex to Microscopic (03/04/2017 7:53 PM CDT) [facility] Method Time Signature Color Urine Light Yellow 03/04/2017 [facility] 8:12 PM CDT [facility] Appearance Urine Clear 03/04/2017 [facility] 8:12 PM CDT [facility] Glucose Urine Negative NEG^Negat 03/04/2017 [facility] [place] mg/dL 8:12 PM [facility] Bilirubin Urine Negative NEG^Negat 03/04/2017 [place] 8:12 PM [facility] Ketones Urine Negative NEG^Negat 03/04/2017 [place] mg/dL 8:12 PM [facility] Specific [place] 1.003 1.003 - 03/04/2017 [place] Urine 1.035 8:12 PM [facility] Blood Urine Large (A) NEG^Negat 03/04/2017 [facility] [place] 8:12 PM [facility] pH Urine 7.0 5.0 - 7.0 03/04/2017 [place] pH 8:12 PM [facility] Protein Albumin Negative NEG^Negat 03/04/2017 [place] Urine [place] mg/dL 8:12 PM [facility] Urobilinogen Normal 0.0 - 2.0 03/04/2017 [place] mg/dL mg/dL 8:12 PM [facility] Nitrite Urine Negative NEG^Negat 03/04/2017 [facility] [place] 8:12 PM [facility] Leukocyte Negative NEG^Negat 03/04/2017 [place] Esterase Urine [place] 8:12 PM [facility] Source Midstream 03/04/2017 [place] Urine 8:04 PM [facility] RBC Urine 36 (H) 0 - 2 03/04/2017 [facility] /HPF 8:12 PM [facility] WBC Urine 1 0 - 2 03/04/2017 [facility] /HPF 8:12 PM [facility] Squamous <1 0 - 1 03/04/2017 [place] Epithelial /HPF /HPF 8:12 PM [facility] Mucous Urine Present (A) NEG^Negat 03/04/2017 [facility] [place] /LPF 8:12 PM [facility] Specimen (Source) Anatomical Collection Method Collection Time Re ceived Time Location / / Volume Laterality Examination of URINE SPECIMEN 03/04/2017 7:53 03/04/20 17 8:03 midstream urine OBTAINED BY CLEAN PM T [facility] specimen CATCH PROCEDURE / (procedure) Unknown Laura Aguero MD LAB - URINE ORDERABLES Performing Organization Address City/State/ZIP Code Phon e Number [facility] [address] [place] [address] [facility] [address] [place] [address], [place] [phone] HCG qualitative urine (03/04/2017 7:53 PM CDT) athologist Signature HCG Qual Urine Negative NEG^Negati 03/04/2017 [place] ve 8:16 PM CDT [facility] Comment: This test is for screening purposes. ??R esults should be interpreted along with the clinical picture. ??Confirmation te sting is available if warranted by ordering [id number], HCG Quantitative Pregna ncy. Specimen Anatomical Collection Method Collection Time Receive d Time (Source) Location / / Volume Laterality Urine specimen URINE SPECIMEN 03/04/2017 7:53 PM 03/04 8:03 (specimen) OBTAINED BY CLEAN CDT PM CDT CATCH PROCEDURE / Unknown Laura Aguero MD LAB - URINE ORDERABLES Performing Organization Address City/State/ZIP Code Phon e Number [facility] [address] [place] [address] [facility] [address] [place] [address], [place] [phone] EKG 12-lead, tracing only (03/04/2017 7:12 PM CDT) [facility] gist Method Time Signature Interpretation ECG Click View RADIOLOGY Image link RESULTS to view waveform and result Specimen (Source) Anatomical Collection Method Collection Time Re ceived Time Location / / Volume Laterality 03/04/2017 7:12 PM CDT Laura Aguero MD ECG ORDERABLES Performing Organization Address City/State/ZIP Code Phon e Number RADIOLOGY RESULTS TSH with free T4 reflex (03/04/2017 2:52 PM CDT) athologist Signature TSH 2.53 0.40 - 4.00 03/04/2017 [place] mU/L 8:33 PM CDT [facility] Specimen Anatomical Collection Method Collection Time Receive d Time (Source) Location / / Volume Laterality Blood specimen 03/04/2017 2:52 PM 017 8:01 (specimen) CDT PM CDT Laura Aguero MD LAB - BLOOD ORDERABLES Performing Organization Address City/State/ZIP Code Phon e Number M [facility] [address] [place] [address] [phone] [facility] [address] [place] [address], [place] [phone] Mononucleosis screen (03/04/2017 2:52 PM CDT) [facility] Method Time Signature Mononucleosis Negative NEG^Negat 03/04/2017 [place] Screen [place] 8:27 PM CDT [facility] Specimen Anatomical Collection Method Collection Time Receive d Time (Source) Location / / Volume Laterality Blood specimen 03/04/2017 2:52 PM 017 8:01 (specimen) CDT PM CDT Laura Aguero MD LAB - BLOOD ORDERABLES Performing Organization Address City/State/ZIP Code Phon e Number M [facility] [address] [place] [address] [facility] [address] [place] [address], [place] [phone] Comprehensive metabolic panel (03/04/2017 2:52 PM CDT) [facility] Method Time Signature Sodium 139 133 - 143 03/04/2017 [place] mmol/L 8:23 PM T [facility] Potassium 3.6 3.4 - 5.3 03/04/2017 [place] mmol/L 8:23 PM CDT [facility] Chloride 104 96 - 110 03/04/2017 [place] mmol/L 8:23 PM CDT [facility] Carbon Dioxide 29 20 - 32 03/04/2017 [facility] mmol/L 8:23 PM T [facility] Anion Gap 6 3 - 14 03/04/2017 [facility] mmol/L 8:23 PM T [facility] Glucose 82 70 - 99 03/04/2017 [place] mg/dL 8:23 PM T [facility] Urea Nitrogen 9 7 - 19 03/04/2017 [place] mg/dL 8:23 PM [facility] Creatinine 0.87 0.50 - 03/04/2017 [place] 1.00 8:23 PM [facility] mg/dL HOSPITAL GFR Estimate GFR not mL/min/1. 03/04/2017 [place] calculated, 7m2 8:23 PM [facility] patient <16 [facility] years old. Comment: Non GFR Calc GFR Estimate If GFR not calculated, mL/min/1.7m2 03/04/2017 8:23 [place] Black patient <16 years PM T [facility] old. HOSPITAL Comment: GFR Calc Calcium 9.5 9.1 - 10.3 mg/dL 03/04/2017 8:23 PM [facility] Bilirubin Total 0.2 0.2 - 1.3 mg/dL 03/04/2017 8:27 PM [facility] Albumin 3.8 3.4 - 5.0 g/dL 03/04/2017 8:23 PM [facility] Protein Total 7.3 6.8 - 8.8 g/dL 03/04/2017 8:27 PM [facility] Alkaline Phosphatase 83 70 - 230 U/L 03/04/2017 8:27 PM [facility] ALT 17 0 - 50 U/L 03/04/2017 8:23 PM [facility] AST 13 0 - 35 U/L 03/04/2017 8:23 PM [facility] Specimen Anatomical Collection Method Collection Time Receive d Time (Source) Location / / Volume Laterality Blood specimen 03/04/2017 2:52 PM 017 8:01 (specimen) CDT PM CDT Laura Aguero MD LAB - BLOOD ORDERABLES Performing Organization Address City/State/ZIP Code Phon e Number M [facility] [address] [place] [address] [facility] [address] [place] [address], U [phone] CBC with platelets differential (03/04/2017 2:52 PM CDT) [facility] Method Time Signature WBC 5.3 4.0 - 03/04/2017 [facility] 11.0 8:07 PM [facility] 10e9/L [facility] RBC Count 4.47 3.7 - 5.3 03/04/2017 [facility] 10e12/L 8:07 PM [facility] Hemoglobin 14.6 11.7 - 03/04/2017 [facility] 15.7 g/dL 8:07 PM [facility] Hematocrit 41.4 35.0 - 03/04/2017 [facility] 47.0 % 8:07 PM [facility] MCV 93 77 - 100 03/04/2017 [facility] fl 8:07 PM [facility] MCH 32.7 26.5 - 03/04/2017 [facility] 33.0 pg 8:07 PM [facility] MCHC 35.3 31.5 - 03/04/2017 [facility] 36.5 g/dL 8:07 PM [facility] RDW 12.9 10.0 - 03/04/2017 [facility] 15.0 % 8:07 PM [facility] Platelet Count 231 150 - 450 03/04/2017 [facility] 10e9/L 8:07 PM [facility] Diff Method Automated 03/04/2017 [facility] Method 8:07 PM [facility] % Neutrophils 39.7 % 03/04/2017 [facility] 8:07 PM [facility] % Lymphocytes 47.6 % 03/04/2017 [facility] 8:07 PM [facility] % Monocytes 8.4 % 03/04/2017 [facility] 8:07 PM [facility] % Eosinophils 3.0 % 03/04/2017 [facility] 8:07 PM [facility] % Basophils 1.1 % 03/04/2017 [facility] 8:07 PM [facility] % Immature 0.2 % 03/04/2017 [facility] Granulocytes 8:07 PM [facility] Nucleated RBCs 0 0 /100 03/04/2017 [facility] 8:07 PM [facility] Absolute 2.1 1.3 - 7.0 03/04/2017 [facility] Neutrophil 10e9/L 8:07 PM [facility] Absolute 2.5 1.0 - 5.8 03/04/2017 [facility] Lymphocytes 10e9/L 8:07 PM CDT [facility] Absolute 0.4 0.0 - 1.3 03/04/2017 [facility] Monocytes 10e9/L 8:07 PM CDT [facility] Absolute 0.2 0.0 - 0.7 03/04/2017 [facility] Eosinophils 10e9/L 8:07 PM CDT [facility] Absolute 0.1 0.0 - 0.2 03/04/2017 [facility] Basophils 10e9/L 8:07 PM CDT [facility] Abs Immature 0.0 0 - 0.4 03/04/2017 [facility] Granulocytes 10e9/L 8:07 PM CDT [facility] Absolute 0.0 03/04/2017 [facility] Nucleated RBC 8:07 PM CDT [facility] Specimen Anatomical Collection Method Collection Time Receive d Time (Source) Location / / Volume Laterality Blood specimen 03/04/2017 2:52 PM 017 8:01 (specimen) CDT PM CDT Laura Aguero MD LAB - BLOOD ORDERABLES Performing Organization Address City/State/ZIP Code Phon e Number M [facility] [address] [place] [address] [phone] [facility] [address] [place] [address], [facility] [phone] documented in this encounter Visit Diagnoses Diagnosis Abdominal pain, generalized Hypersomnolence Hypersomnia, unspecified documented in this encounter Administered Medications Inactive Administered Medications - up to 3 most recent administrations Medication Order MAR Action Action Date Dose Rate Site 0.9% sodium chloride BOLUS New Bag 03/04/2017 7:56 PM CDT 1,000 mLs 1000 mL/hr Intravenous, 1,000 mL, ONCE, at 1,000 mL/hr, Administer over 1 Hours, On 03/04/17 at 1902, For 1 dose 0.9% sodium chloride infusion at 125 mL/hr, Intravenous, CONTINUOUS, A dminister after the bolus., Starting on 03/04/17 at 1902, Until 03/04/17 at 2351 documented in this encounter Active and Recently Administered Medications Times are shown in CDT. Scheduled Medication Order 03/02/2017 03/03/2017 03/04/2017 0.9% sodium chloride BOLUS (COMPLETED) 1955 (New Bag - Provider: Anderson Coelho, RN)2103 (Stopped - Provider: David Dugan RN) Intravenous, 1,000 mL, ONCE, at 1,000 mL /hr, Administer over 1 Hours, On 03/04/17 at 1902, For 1 dose Continuous Medication Order 03/02/2017 03/03/2017 03/04/2017 0.9% sodium chloride infusion 19 02 (Canceled Entry - Provider: Orders Generic Provider - Comment: Automatically canceled at discontinue of medication order) at 125 mL/hr, Intravenous, CONTINUOUS, A dminister after the bolus., Starting 03/04/17 at 1902, Until 03/04/17 at 2351 documented in this encounter Care Teams Urologic Nurse Relationship Specialty Start Date End Date Maribel Limon, PCP - General Pediatrics 02/19/1701/25 Kassi Vidales MD Pediatric Gastroenterology [facility] [place] [address] documented as of this encounter
--- OUTSIDE RECORDS SUMMARY | 2022-01-28 16:46 | XMS_ITS | Encounter Summary ---
:2000 Author Organization [facility] Address [address], [place] [address] Care Team Providers Name Role Phone Unavailable Primary Care Provider Unavailable Encounter Details Date Type Department Care Team Description 08/28/2013 Hospital Encounter [facility] [address] [place] [address] [facility] Rickie Pacheco MD Laboratories [address] [facility] [address] [address] [place] [address] Social History Tobacco Use Types Packs/Day Years Used Date Smoking Tobacco: Never Assessed Sex Assigned at Date Recorded Not on file documented as of this encounter Plan of Treatment Not on filedocumented as of this encounter Procedures Procedure Name Priority Date/Time Associated Diagnosis Comme nts BETA STREP RESP Routine 08/28/2013 2:56 PM Result s for this CULT CDT procedure are i n the results section. documented in this encounter Results Beta Strep Resp Cult (08/28/2013 2:56 PM CDT) [facility] Method Time Signature Source Throat HP CONVERSION Site HP CONVERSION Strep Screen No beta HP CONVERSION hemolytic Strep Group A isolated. Specimen (Source) Anatomical Collection Method Collection Time Re ceived Time Location / / Volume Laterality Throat: 08/28/2013 2:56 PM CDT Mee Palumbo MD LAB_1 Performing Organization Address City/State/ZIP Code Phon e Number HP CONVERSION documented in this encounter Visit Diagnoses Not on filedocumented in this encounter
--- OUTSIDE RECORDS SUMMARY | 2022-01-28 16:46 | XMS_ITS | Clinical Summary ---
:2000 Author Organization [facility] Address [address], [place] [address] Care Team Providers Name Role Phone Non Pn, Clinician MD Primary Care Provider Unavailable Source Comments You are receiving this document as you are listed as the primary care provider,follow-up provider, or the patient has been referred to you for consultation.This is in compliance with the Medicare and Medicaid EHR Incentive Program,which states Providers who transition their patient to another setting of careor provider of care or refers their patient to another provider of care shouldprovide summarycare record for each transition of care or referral. [employer] Allergies No known active allergies Medications Medication Sig Dispensed Refills Start Date End Date Status drospirenone-ethinyl Take 1 Tablet by 0 Active estradiol (SAVANNA 28) mouth daily. 3-0.03 MG tablet melatonin 5 MG tablet Take 5 mg by mouth 0 Active daily at bedtime. Pediatric Multiple Chew and swallow 1 0 Active Vit-C-FA (FLINSTONES Tablet by mouth GUMMIES OMEGA-3 DHA) daily. CHEW FLUoxetine (PROZAC) Take 3 Capsules by 90 Capsule 3 06/28/2020 Active 20 MG capsule mouth daily. hydrOXYzine HCl Take 1-4 Tablets 90 Tablet 1 06/28/2020 Active (ATARAX) 25 MG tablet by mouth daily as needed (anxiety or insomnia). Active Problems Problem Noted Date Other specified eating disorder 04/13/2020 KAN (generalized anxiety disorder) 04/13/2020 Recurrent major depressive episodes, moderate 04/13/20 20 Family History Medical History Relation Name Comments Alcohol Abuse Mother Anxiety Mother Depression Mother Anxiety Sister Depression Sister Relation Name Status Comments Mother Sister Social History Tobacco Use Types Packs/Day Years Used Date Smoking Tobacco: Never Smokeless Tobacco: Never Alcohol Use Standard Drinks/Week Comments Not Currently 0 (1 standard drink = 0.6 oz pure 2 drin ks weekly while at college alcohol) Alcohol Habits Answer Date Recorded How often do you have a drink Not asked containing alcohol? How many drinks containing alcohol do Not asked you have on a typical day when you are drinking? How often do you have six or more Not asked drinks on one occasion? Comment: 2 drinks weekly while at college 020 Sex Assigned at Date Recorded Not on file Last Filed Vital Signs Vital Sign [place] Time Taken Comments Blood Pressure 122/77 05/17/2020 1:10 PM [employer] Pulse 86 05/17/2020 1:10 PM [employer] Temperature 36.6 ??C (97.8 ??F) 05/17/2020 1:09 PM [employer] Respiratory Rate - - Oxygen Saturation - - Inhaled Oxygen Concentration - - Weight 68.1 kg (150 lb 2.1 oz) 05/17/2020 1:09 PM [employer] Height 166.7 cm (5' 5.63) 05/17/2020 1:09 PM [employer] Body Mass Index 24.51 05/17/2020 1:09 PM [employer] Plan of Treatment Health Maintenance Due Date Last Done Comments Chlamydia 2001 Hep C Screening (Preventive 2001 Services) HepB (1) 2001 COVID-19 Vaccine (#1) 02/19/2002 HIV Screening (Preventive 2017 Services) Adult Preventive Visit 08/21/2019 Influenza (#1) 2022 02/19/2020, 07/18/2019, 03/05/2017, Additional history exists DTaP/Tdap/Td (7 - Tdap) 12/25/2022 12/25/2012, 08/23/2006, 11/25/2002, Additional history exists Zoster/Shingles (1 of 2) 08/21/2051 Pneumococcal Aged Out 11/25/2002, 05/23/2002, No longe r eligible 02/18/2002, Additional based on patient's age history exists to complete this topic HepA Completed 01/10/2008, 08/23/2006 HPV Vaccine Completed 07/15/2013, 02/07/2013, 12/25/2012 MCV4 Completed 10/12/2017, 12/25/2012 Hib Aged Out No longer eligib le based on patient 's age to complete this topic IPV (Polio) Aged Out No longer eligib le based on patient 's age to complete this topic Insurance Payer Benefit Plan / Subscriber ID Effective Dates Phone Addre ss Type Group BCBS BCBS OUT OF [id number] 2020-Present [address] [address] [place] [address] Care Teams Historic Site Administrator Relationship Specialty Start Date End Date Non Pn, Clinician, PCP - General 04/13/20 [place] [address]
--- OUTSIDE RECORDS SUMMARY | 2022-01-28 16:46 | XMS_ITS | Encounter Summary ---
:2000 Author Organization [facility] Address [address] [address] Care Team Providers Name Role Phone Unavailable Primary Care Provider Unavailable Reason for Referral Procedure/Equipment (Routine) - Incomplete Specialty Diagnoses / Procedures Referred By Contact Refer red To Contact Diagnoses Pain in estrella, unspecified laterality De Ball MD Procedures Airselect Elite/Standard Tall Boot(L4361) [address] [place], [place] [address] Referral ID Status Reason Start Date Expiration Date Visits V isits Requested Authorized [id number] Incomplete 12/07/2018 03/07/2020 1 1 Procedure/Equipment (Routine) - Incomplete Specialty Diagnoses / Procedures Referred By Contact Refer red To Contact Diagnoses Pain in estrella, unspecified laterality De Ball MD Procedures XR Tibia Fibula Rt 2 Views [address] [place], [place] [address] Referral ID Status Reason Start Date Expiration Date Visits V isits Requested Authorized [id number] Incomplete 12/04/2018 03/04/2020 1 1 Procedure/Equipment (Routine) - Incomplete Specialty Diagnoses / Procedures Referred By Contact Refer red To Contact Diagnoses Pain in estrella, unspecified laterality De Ball MD Procedures XR Tibia Fibula Lt 2 Views [address] [place], [place] [address] Referral ID Status Reason Start Date Expiration Date Visits V isits Requested Authorized [id number] Incomplete 12/04/2018 03/04/2020 1 1 Reason for Visit Reason Comments LEG PAIN Bilateral estrella DOP:11/25/18 s occer overuse? Encounter Details Date Type Department Care Team Description 12/04/2018 Office Visit [facility] Orthopedic De Ball MD Pain in estrella, Urgent Care [address] unspecified [address] [place], [place] laterality (Primary [place], [place] [phone] Dx) [phone] (Wo rk) Social History Tobacco Use Types Packs/Day Years Used Date Smoking Tobacco: Never Sex Assigned at Date Recorded Not on file documented as of this encounter Last Filed Vital Signs Vital Sign [place] Time Taken Comments Blood Pressure - - Pulse - - Temperature 36.6 ??C (97.9 ??F) 12/04/2018 1:42 PM CDT Respiratory Rate - - Oxygen Saturation - - Inhaled Oxygen Concentration - - Weight 65.8 kg (145 lb) 12/04/2018 1:42 PM CDT Height 165.1 cm (5' 5) 12/04/2018 1:42 PM CDT Body Mass Index 24.13 12/04/2018 1:42 PM CDT Body Mass Index Percentile 79.05 % 12/04/2018 1:42 PM CD T Growth Chart: CDC (Girls, 2-20 Years) documented in this encounter Patient Instructions Patient InstructionsBaCesilia driver, ATC - 12/04/2018 1:[address] De Ball MD Sports & Orthopaedic Medicine [facility] Medication Requests: Prescriptions are not filled on Weekends or on Weekdays after 3:00PM For all medication refills: Request a refill using MyChart or contact your Pharmacy [facility] Nurse Line: Please contact [facility] Nurse line for all medical requests and questions at [phone] MRI Scheduling: To schedule an MRI at [facility] please call [phone] Paperwork Requests: Questions regarding FMLA or disability paperwork please call [phone] Phone lines are answered 8AM to 5PM Sunday - Sunday. Workers??? Compensation: Please contact our department for any Work Comp concerns at Email: [email or web address] Bilateral estrella splints Rest for 1 week then return to sports as tolerated Follow up in 2 weeks if still with pain ; consider MRI at follow up Ice Ibuprofen ( 400-600 mg up to 3 times a day ) Athlete note documented in this encounter Progress Notes De Ball MD - 12/04/2018 12:00 PM CDT NAME: ALEJANDRO SAM I MR#: [id number] CSN: [id number] AUTHENTICATING CLINICIAN: De Ball MD CONFIRM #: [id number] LOC: 711 CLINIC PROGRESS NOTE DATE OF VISIT: 12/04/2018 : 2000 Patient is a 18-year-old here for evaluation for bilateral estrella splints with soccer. She was trying out for a club team and played 2 days in a row, 2 games each day and suddenly started to get estrella pain bilaterally in the distal 3rd anteromedial part of the estrella. She is persisting to have pain and numbness occasionally and tingling into the foot when doing that but minimal at most. If she walks a lot, she can get irritation there as well. It only happened after that weekend of playing soccer. Running and exercise are very difficult. REVIEW OF SYSTEMS: No fevers, rashes, joint pains. No diabetes. No smoking. SOCIAL HISTORY: Enjoys soccer and running. She works as a nanny as well. She is at [employer] in 12th grade. PHYSICAL EXAM: GENERAL: She is alert, in no acute distress. Pleasant female. MUSCULOSKELETAL: Examination of her estrella shows pain right along the anteromedial shins distally that recreates a large part of her symptoms. No pain in the calf. No pain in the Achilles tendon. No pain over the proximal tib-fib and no pain in the midfoot or the forefoot. VITAL SIGNS: She is afebrile. ASSESSMENT/PLAN: Suggested rest for a week and then return to sports as tolerated. Follow up 2 weeks if still with pain. Will consider MRI of the tib-fib. Ice and ibuprofen as needed for comfort. X-rays of the tib-fib were negative for pathology, both on the right and the left. RTJ:MEDQ C: R:12/05/18 15:59 CONFIRM#:[id number] documented in this encounter Plan of Treatment Not on filedocumented as of this encounter Results XR Tibia Fibula Rt 2 Views (12/04/2018 2:35 PM CDT) Anatomical Region Laterality Modality Lower Extremity, Knee, Leg, Foot & Ankle Digital Radiography Specimen (Source) Anatomical Collection Method Collection Time Re ceived Time Location / / Volume Laterality 12/04/2018 2:23 PM CDT Impressions 12/04/2018 2:57 PM CDT COMPARISON: ??None. FINDINGS: ??Right tib-fib 2 views. No ac [place] bony abnormalities. Joint spaces are intact Procedure Note Rowdy Call MD - 12/04/2018 IMPRESSION COMPARISON: None. FINDINGS: Right tib-fib 2 views. No acut e bony abnormalities. Joint spaces are intact De Ball MD RAD GD XR Tibia Fibula Lt 2 Views [...] this encounter Visit Diagnoses Diagnosis Pain in setrella, unspecified laterality - P rimary Pain in estrella, unspecified laterality documented in this encounter
== END 2022-01-28 17:02 | disposition home or self-care (01) ==
LOC: ED 16:44
PROVIDERS: Emergency Provider Family Medicine
DX: L03.116 Cellulitis of left lower limb (principal)
CPT/HCPCS: 99282; 99283; 99284; A9270

== ENCOUNTER 2022-02-02 12:41 | Emergency (ER) | payer BC, SELFPAY ==
[2022-02-02 12:49] VITALS: BP 111/73; PULSE 100; TEMP 36.6; O2SAT 98; BMI 20.3
--- NOTE | 2022-02-02 13:16 | CRLHL7_ITS ---
For Patients: As a result of the Century Cures Act, medical imaging exams and procedure reports are released immediately into your electronic medical record. You may view this report before your referring provider. If you have questions, please contact your health care provider. Indication: Lesion training with increased pain Technique: Sonography of the lesion and the surrounding area was performed. This is the left lateral calf. Comparison: None Findings: Subcutaneous edema pattern noted in this area. There is fluid interspersed between the lobules of subcutaneous fat some of which is organized enough to likely represent an early developing collection. This measures about 2.5 centimeters in greatest length and about 1 centimeter in greatest depth. This does not have an defined organizing wall of this time. This could be a hematoma, seroma or developing infected fluid collection. Correlate with the nature of the apparent dermal lesion. Impression: Subcutaneous edema pattern with developed fluid collection as described. Dictated by Gabriele Stephens MD @ 02/02/2022 2:44:44 PM (Electronically Signed)
--- NOTE | 2022-02-02 13:19 | ED.GENADULT ---
HPI - General Adult General Time Seen by Provider: 13:19 Date Seen: 02/02/22 Chief complaint: Laceration/Wound Stated complaint: Cellulitis is worse Time Seen by Provider: 02/02/22 12:54 Source: patient, RN notes reviewed and old records reviewed Mode of arrival: ambulatory Limitations: no limitations History of Present Illness HPI narrative: Patient is a 21-year-old female coming in with increasing left lower extremity pain, bleeding wound. She started with a small little pustular area with surrounding erythema on this left lower extremity. She was seen in our ER on January 28 and has been on Bactrim since then. There was nothing reported that could be cultured at the time. She is wondering if she has MRSA. Again she has been on the Bactrim. She has felt constipated this last week but no nausea or vomiting, still has had some chills. She reports she has been on multiple antibiotics for different infections over this past year. States she had a bad stye a that had to be treated, recent pustule on her elbow, strep throat. She absolutely does not remember any trauma to this area of the leg. It is becoming more painful to walk on and did start bleeding somewhat yesterday. She has not had a previous diagnosis of MRSA prior. The wound is starting to bleed through bandages. She does states that the area of redness around the wound has gone down and is better but pain is increased. Still feeling achy but no documented fevers. Related Data Home Medications Medication Instructions Recorded Confirmed fluoxetine 40 mg capsule 40 mg PO DAILY 01/28/22 01/28/22 lisdexamfetamine 40 mg capsule 40 mg PO DAILY 01/28/22 01/28/22 (Vyvanse) Previous Rx's Medication Instructions Recorded sulfamethoxazole 800 1 tab PO BID #20 tabs 01/28/22 mg-trimethoprim 160 mg tablet Allergies Allergy/AdvReac Type Severity Reaction Status Date / Time No Known Drug Allergies Allergy Verified 01/28/22 15:55 Review of Systems Status of ROS: Reports: 6 or more systems reviewed and unremarkable except as noted in History and below [facility] Social History Smoking Status: Never smoker Do you use any of these nicotine containing products: E-Cigarettes How often do you have a drink containing alcohol: 2-3 times a week How many standard drinks containing alcohol do you have on a typical day: 7 to 9 How often do you have six or more drinks on one occasion: Weekly AUDIT-C Alcohol total score: 9 Non-prescribed substance use: denies use Exam Const: Vital Signs, click to edit/add: Vital Signs - 24 hr 02/02/22 12:49 02/02/22 14:52 Temperature 97.8 F Pulse Rate [Left P ulse Oximeter] 100 71 Blood Pressure [Ri ght Upper Arm] 111/73 104/63 Pulse Oximetry 98 99 Oxygen Delivery Me thod Room Air Room Air Documenting provider has reviewed patient's vital signs: yes Common normals: no apparent distress, average body habitus, oriented x3, no limitations, healthy appearing and alert General appearance: cooperative, comfortable and well kempt HENMT: Common normals: normocephalic, head/scalp atraumatic and hearing grossly normal bilaterally Head and scalp: normocephalic and atraumatic Eye: Common normals: PERRL, EOMs intact bilaterally, conjunctivae normal and no scleral icterus Conjunctiva: conjunctiva(e) normal Pupil: PERRL Neck & C-Spine: Common normals: full ROM, no lymphadenopathy, supple, no meningeal signs, no JVD and thyroid normal Thyroid: thyroid normal Resp: Common normals: normal respiratory effort, no retractions, no use of accessory muscles and clear to auscultation bilaterally Auscultation: clear to auscultation bilaterally Cardio: Common normals: no JVD, regular rate, regular rhythm, S1 normal heart sound, S2 normal heart sound, no gallops, no clicks and no murmurs Rate: regular rate Rhythm: regular rhythm Heart sounds: S1 normal and S2 normal GI: Common normals: Normal to inspection, nondistended, normoactive bowel sounds present, soft to palpation, non-tender, no hepatosplenomegaly and no masses Palpation: soft and no hepatosplenomegaly Other: Has left about 1 cm mobile but tender inguinal lymph node on the left side. Extremity: Other: She has a bandage on her mid anterolateral left calf that has bled through the bandaging. When I removed this, there was some clot underneath in a clean it away. She has about a 2 cm in length by about 1.5 cm maximal with oval area with purplish discoloration and a central opening that is oozing blood. There is whitish tissue there. When I compress the wound IA get bloody discharge. I did take a forceps and try to pick the whitish tissue out but it is readily adherent and not removable, certainly not pus. It is uncomfortable when probing the wound. I did culture some of the bloody drainage. There is no erythema around this. She has no edema of this lower extremity although there is some induration of the wound itself. She has full flexion extension range of motion about the knee and ankle. Neuro: Common normals: oriented x3 Sensorium/orientation: alert Meningeal signs: no meningeal signs Psych: Appearance: well kempt Course Course Hospital Course: Will proceed with some basic blood work including inflammatory markers. We will attempt to do a musculoskeletal ultrasound on this to see if this looks like it could be something drainable or if it seems to be a different lesion. If it is an abscess, we will likely need to open this wound further and see if we can drain it. If it seems to be something different, may need further advanced imaging. We will keep in mind about maybe having Orthopedics take a look at this to see if they could weigh in on it, at this time though I am not sure if they are even here at the hospital. Reevaluation(s) Reevaluation #1: Reviewed with patient her ultrasound, this appears to be an abscess developing. Patient consent was obtained for incision and drainage. 5 mL of 1% lidocaine with epinephrine was drawn up and infiltrated locally. Once anesthesia was confirmed, a 15 blade scalpel was used to extend proximally and distally the opening that was already present. This central white appearing area looked to be just a piece of necrotic subcutaneous tissue that was easily removed. The wound was milked and some purulent drainage mixed with blood was removed. There was no foreign body that could be found. Did do some blunt superficial investigation and no significant further fluid collections were found. Had nursing staff irrigate this wound afterwards. Will be placed seen a wick in place to keep this open. Patient overall tolerated this well and no immediate complications. She is aware that the wound culture will take 48 hours to come back. At this point, did review UpToDate recommendations for treatment of abscesses and cellulitis. Her labs are looking good, no evidence of systemic toxicity based on vitals or laboratory evaluation. Incision and drainage of the abscess really should be the most corrective in this situation. Will discuss with patient that if we would initiate IV antibiotics, vancomycin could be done but on my discussion with pharmacy really should probably be dosed 3 times a day on her. I would be able to recheck her tomorrow afternoon to ensure that she is improving. I doubt we would be able to get her a follow-up clinic appointment anywhere else at this time. Time: 15:12 Vital Signs Vital signs: Initial Vital Signs Temperature 97.8 F 02/02/22 12:49 Temperature Source Temporal Artery Scan 02/02/22 12:49 Pulse Rate 100 02/02/22 12:49 Blood Pressure 111/73 02/02/22 12:49 Blood Pressure Mean 85 02/02/22 12:49 Blood Pressure Position Supine 02/02/22 12:49 Pulse Oximetry 98 02/02/22 12:49 Oxygen Delivery Method 02/02/22 12:49 Vital Signs Temperature 97.8 F 02/02/22 12:49 Pulse Rate 100 02/02/22 12:49 Blood Pressure 111/73 02/02/22 12:49 Pulse Oximetry 98 02/02/22 12:49 Oxygen Delivery Method 02/02/22 12:49 Temperature 97.8 F 02/02/22 12:49 Pulse Rate 71 02/02/22 14:52 Blood Pressure 104/63 02/02/22 14:52 Pulse Oximetry 99 02/02/22 14:52 Oxygen Delivery Method 02/02/22 14:52 Medical Decision Making Lab Data Labs: Lab Results 02/02/22 02/02/22 02/02/22 Range/Units 13:40 13:40 13:40 WBC 5.48 (4.50-11.00) K/uL RBC 4.41 (4.00-5.20) m/uL Hgb 13.6 (12.0-16.0) gm/dL Hct 40.6 (33.0-51.0) % MCV 92 (80-100) fL MCH 31 (26-34) pg MCHC 34 (32-36) gm/dL RDW Coeff of Nasrin 12.2 (11.5-15.5) % Plt Count 283 (140-440) K/uL Neut % (Auto) 55.7 (42.0-72.0) % Lymph % (Auto) 29.0 (20-44) % Mar[place]osa % (Auto) 8.2 (0.0-11.0) % Eos % (Auto) 6.0 (0.0-7.0) % Baso % (Auto) 0.9 (0.0-3.0) % Neut # (Auto) 3.05 (1.7-7.0) K/uL Lymph # (Auto) 1.59 (0.90-2.90) K/uL [place] # (Auto) 0.40 (0.00-0.90) K/UL Eos # (Auto) 0.33 (0.00-0.50) K/uL Baso # (Auto) 0.05 (0.00-0.30) K/uL Abs Immat Gran (auto) 0.01 (0.00-0.30) K/uL ESR 12 (2-20) mm/hr Sodium 137 (135-149) mmol/L Potassium 4.6 (3.6-5.1) mmol/L Chloride 102 (96-114) mmol/L Carbon Dioxide 23 (20-32) mmol/L BUN 9 (5-24) mg/dL Creatinine 0.8 (0.5-1.5) mg/dL Estimated Creat Clear 97.99 Estimated GFR 108 ml/min Glucose 96 (60-115) mg/dL Calcium 9.7 (8.4-10.6) mg/dL C-Reactive Protein 1.8 H (0.5-1.0) mg/dL Critical Care Time Critical Care Time Critical Care Time: No Discharge Plan Discharge Clinical Impression: Abscess Patient Disposition: Home, Self-Care Condition: Stable Instructions: Abscess Incision and Drainage (DC) Additional Instructions: Can leave current bandage in place until follow-up tomorrow. If there is drainage through the bandage, can changes you have been. If the wick falls out, do not worry about it. However, if you can leave the wick in place, please do so. Continue with the Bactrim as already prescribed. Elevate this leg to help minimize swelling and pain. Fine to use Tylenol and/or ibuprofen if needed for any discomfort. If you notice rapid increasing pain in this leg, rapid swelling no or redness developing, develops fevers, do need to return to the ER. Otherwise, I can recheck this wound around 4:00 p.m. tomorrow afternoon just to ensure that we are on the right path of treatment. Typically, incising in abscess really is the most necessary thing in curing the abscess. Activity Detail: Try to elevate this leg as much as able to for the next few days while resting. Would try not to be up and about on it outside of going to classes or necessary class activities. Prescriptions: No Action fluoxetine 40 mg capsule 40 mg PO DAILY Label Comments: TAKE 1 CAPSULE BY MOUTH EVERY DAY Vyvanse 40 mg capsule 40 mg PO DAILY Label Comments: TAKE 1 CAPSULE BY MOUTH EVERY DAY sulfamethoxazole-trimethoprim 800-160 mg tablet 1 tab PO BID Qty: 20 0RF Follow Up/Referrals: Provider,Not a Local [Primary Care Provider] - Stand Alone Forms: [employer]th Info Instructions
--- OUTSIDE RECORDS SUMMARY | 2022-02-02 13:46 | XMS_ITS ---
[...] [facility], capillary Urgent Care Blood [place]: [address] , [place] 07/27/2021 Streptococcus Throat ? Result positive ? ? [facility] Urgen t Care [place]: [address] , [place] Past Encounters 07/27/2021 Acute Pharyngitis Wilbert Barney PA: [address], [place] [address], Ph. Social History None recorded. Vaccine List [...]
--- OUTSIDE RECORDS SUMMARY | 2022-02-02 13:46 | XMS_ITS | Encounter Summary ---
:2000 Author Organization [address] Address [address] [place] [address] Care Team Providers Name Role Phone Maribel Limon MD Primary Care Provider [phone] Kassi Vidales MD Unavailable [phone] Reason for Visit Reason Comments Abdominal Pain intermittent lower abd pain that happens every day, with bloating, c nausea and diarrhea/constipa tion X 2 months, seen at PCP and [facility] no [facility] have been run yet. also c/o overall exhausion, falling asleep in class and going to bed at 8p. per mom pt had a sync opal episdoe around 1815 tonight Encounter Details Date Type Department Care Team Description 03/04/2017 Emergency [facility] Laura Aguero, Abd ominal pain, generalized; [facility] Emergency Hypersomnolence Dept [facility] [address] [place] [address] [place] [address] [facility] [place] [address] (Wo rk) Social History Tobacco Use [...] place to sleep or slept in a nursing home (including now)? Sex Assigned at Date Recorded [...] 03/04/2017 6:56 PM CD T Growth Chart: [facility] (Girls, 2-20 Years) documented in this encounter [...] healthcare provider before giving your child any nqzx-fem-[id number] medicines. Preventing abdominal pain If your child [...] older. ?? Date Last Reviewed: 11/05/2015 ?? [id number] [employer]. [address] [place] [address]. All rights reserved. This information is not [...] Department Course ECG (19:12:18): Rate 65 bpm. CO interval 166. QRS duration 72. QT/QTc 384/399. [...] reflex to Microscopic (03/04/2017 7:53 PM CDT) [facility] Method Time Signature Color Urine Light Yellow 03/04/2017 [facility] 8:12 PM CDT [facility] Appearance Urine Clear 03/04/2017 [facility] 8:12 PM CDT [facility] Glucose Urine Negative NEG^Negat 03/04/2017 [facility] [place] mg/dL 8:12 PM [facility] Bilirubin Urine Negative NEG^Negat 03/04/2017 [facility] [place] 8:12 PM [facility] Ketones Urine Negative NEG^Negat 03/04/2017 [facility] [place] mg/dL 8:12 PM [facility] Specific [place] 1.003 1.003 - 03/04/2017 [facility] Urine 1.035 8:12 PM [facility] Blood Urine Large (A) NEG^Negat 03/04/2017 [facility] [place] 8:12 PM [facility] pH Urine 7.0 5.0 - 7.0 03/04/2017 [facility] pH 8:12 PM [facility] Protein Albumin Negative NEG^Negat 03/04/2017 [facility] Urine [place] mg/dL 8:12 PM [facility] Urobilinogen Normal 0.0 - 2.0 03/04/2017 [facility] mg/dL mg/dL 8:12 PM [facility] Nitrite Urine Negative NEG^Negat 03/04/2017 [facility] [place] 8:12 PM [facility] Leukocyte Negative NEG^Negat 03/04/2017 [facility] Esterase Urine [place] 8:12 PM [facility] Source Midstream 03/04/2017 [facility] Urine 8:04 PM [facility] RBC Urine 36 (H) 0 - 2 03/04/2017 [facility] /HPF 8:12 PM [facility] WBC Urine 1 0 - 2 03/04/2017 [facility] /HPF 8:12 PM [facility] Squamous <1 0 - 1 03/04/2017 [facility] Epithelial /HPF /HPF 8:12 PM [facility] Mucous Urine Present (A) NEG^Negat 03/04/2017 [facility] [place] /LPF 8:12 PM [facility] Specimen (Source) Anatomical Collection Method Collection Time Re ceived Time Location / / Volume Laterality Examination of URINE SPECIMEN 03/04/2017 7:53 03/04/20 17 8:03 midstream urine OBTAINED BY CLEAN PM T [facility] specimen CATCH PROCEDURE / (procedure) Unknown Laura Aguero MD LAB - URINE ORDERABLES Performing Organization Address City/State/ZIP Code Phon e Number [facility] [address] [address] [facility] [address] [place] [address], [place] [phone] HCG qualitative urine (03/04/2017 7:53 PM CDT) athologist Signature HCG Qual Urine Negative NEG^Negati 03/04/2017 [facility] ve 8:16 PM CDT [facility] Comment: This test is for screening purposes. ??R esults should be interpreted along with the clinical picture. ??Confirmation te sting is available if warranted by ordering [id number], HCG Quantitative Pregna ncy. Specimen Anatomical Collection Method Collection Time Receive d Time (Source) Location / / Volume Laterality Urine specimen URINE SPECIMEN 03/04/2017 7:53 PM 03/04 8:03 (specimen) OBTAINED BY CLEAN CDT PM CDT CATCH PROCEDURE / Unknown Laura Aguero MD LAB - URINE ORDERABLES Performing Organization Address City/State/ZIP Code Phon e Number [facility] [address] [address] [facility] [address] [place] [address], [place] [phone] EKG 12-lead, tracing only (03/04/2017 7:12 PM CDT) [facility] gist Method Time Signature Interpretation ECG Click [...] Signature TSH 2.53 0.40 - 4.00 03/04/2017 [facility] mU/L 8:33 PM CDT [facility] Specimen Anatomical Collection Method Collection Time Receive d Time (Source) Location / / Volume Laterality Blood specimen 03/04/2017 2:52 PM 017 8:01 (specimen) CDT PM CDT Laura Aguero MD LAB - BLOOD ORDERABLES Performing Organization Address City/State/ZIP Code Phon e Number [facility] [address] [place] [address] [phone] [facility] [address] [place] [address], [place] [phone] Mononucleosis screen (03/04/2017 2:52 PM CDT) [facility] Method Time Signature Mononucleosis Negative NEG^Negat 03/04/2017 [facility] Screen [place] 8:27 PM CDT [facility] Specimen Anatomical Collection Method Collection Time Receive d Time (Source) Location / / Volume Laterality Blood specimen 03/04/2017 2:52 PM 017 8:01 (specimen) CDT PM CDT Laura Aguero MD LAB - BLOOD ORDERABLES Performing Organization Address City/State/ZIP Code Phon e Number [facility] [address] [place] [address] [facility] [address] [place] [address], [place] [phone] Comprehensive metabolic panel (03/04/2017 2:52 PM CDT) [facility] Method Time Signature Sodium 139 133 - 143 03/04/2017 [facility] mmol/L 8:23 PM T [facility] Potassium 3.6 3.4 - 5.3 03/04/2017 [facility] mmol/L 8:23 PM CDT [facility] Chloride 104 96 - 110 03/04/2017 [facility] mmol/L 8:23 PM CDT [facility] Carbon Dioxide 29 20 - 32 03/04/2017 [facility] mmol/L 8:23 PM T [facility] Anion Gap 6 3 - 14 03/04/2017 [facility] mmol/L 8:23 PM T [facility] Glucose 82 70 - 99 03/04/2017 [facility] mg/dL 8:23 PM T [facility] Urea Nitrogen 9 7 - 19 03/04/2017 [facility] mg/dL 8:23 PM [facility] Creatinine 0.87 0.50 - 03/04/2017 [facility] 1.00 8:23 PM [facility] mg/dL HOSPITAL GFR Estimate GFR not mL/min/1. 03/04/2017 [facility] calculated, 7m2 8:23 PM [facility] patient <16 H[facility]PITAL years old. Comment: Non GFR Calc GFR Estimate If GFR not calculated, mL/min/1.7m2 03/04/2017 8:23 [facility] Black patient <16 years PM T [facility] old. HOSPITAL Comment: GFR Calc Calcium 9.5 9.1 - 10.3 mg/dL 03/04/2017 8:23 PM [facility] Bilirubin Total 0.2 0.2 - 1.3 mg/dL 03/04/2017 8:27 PM [facility] Albumin 3.8 3.4 - 5.0 g/dL 03/04/2017 8:23 PM [facility] Protein Total 7.3 6.8 - 8.8 g/dL 03/04/2017 8:[address] [facility] Alkaline Phosphatase 83 70 - 230 U/L 03/04/2017 8:27 PM [facility] ALT 17 0 - 50 U/L 03/04/2017 8:23 PM [facility] AST 13 0 - 35 U/L 03/04/2017 8:23 PM [facility] Specimen Anatomical Collection Method Collection Time Receive d Time (Source) Location / / Volume Laterality Blood specimen 03/04/2017 2:52 PM 017 8:01 (specimen) CDT PM CDT Laura Aguero MD LAB - BLOOD ORDERABLES Performing Organization Address City/State/ZIP Code Phon e Number [facility] [address] [address] [facility] [address] [address], U [phone] CBC with platelets differential (03/04/2017 2:52 PM CDT) [facility] Method Time Signature WBC 5.3 4.0 - 03/04/2017 [facility] 11.0 8:07 PM [facility] 10e9/L [facility] RBC Count 4.47 3.7 - 5.3 03/04/2017 [facility] 10e12/L 8:07 PM [facility] Hemoglobin 14.6 11.7 - 03/04/2017 [facility] 15.7 g/dL 8:07 PM [facility] Hematocrit 41.4 35.0 - 03/04/2017 [facility] 47.0 % 8:07 PM [facility] MCV 93 77 - 100 03/04/2017 [facility] fl 8:07 PM [facility] MCH 32.7 26.5 - 03/04/2017 [facility] 33.0 pg 8:07 PM [facility] MCHC 35.3 31.5 - 03/04/2017 [facility] 36.5 g/dL 8:07 PM [facility] RDW 12.9 10.0 - 03/04/2017 [facility] 15.0 % 8:07 PM [facility] Platelet Count 231 150 - 450 03/04/2017 [facility] 10e9/L 8:07 PM [facility] Diff Method Automated 03/04/2017 [facility] Method 8:07 PM [facility] % Neutrophils 39.7 % 03/04/2017 [facility] 8:07 PM [facility] % Lymphocytes 47.6 % 03/04/2017 [facility] 8:07 PM [facility] % Monocytes 8.4 % 03/04/2017 [facility] 8:07 PM [facility] % Eosinophils 3.0 % 03/04/2017 [facility] 8:07 PM [facility] % Basophils 1.1 % 03/04/2017 [facility] 8:07 PM [facility] % Immature 0.2 % 03/04/2017 [facility] Granulocytes 8:07 PM [facility] Nucleated RBCs 0 0 /100 03/04/2017 [facility] 8:07 PM [facility] Absolute 2.1 1.3 - 7.0 03/04/2017 [facility] Neutrophil 10e9/L 8:07 PM [facility] Absolute 2.5 1.0 - 5.8 03/04/2017 [facility] Lymphocytes 10e9/L 8:07 PM CDT [facility] Absolute 0.4 0.0 - 1.3 03/04/2017 [facility] Monocytes 10e9/L 8:07 PM CDT [facility] Absolute 0.2 0.0 - 0.7 03/04/2017 [facility] Eosinophils 10e9/L 8:07 PM CDT [facility] Absolute 0.1 0.0 - 0.2 03/04/2017 [facility] Basophils 10e9/L 8:07 PM CDT [facility] Abs Immature 0.0 0 - 0.4 03/04/2017 [facility] Granulocytes 10e9/L 8:07 PM CDT [facility] Absolute 0.0 03/04/2017 [facility] Nucleated RBC 8:07 PM CDT [facility] Specimen Anatomical Collection Method Collection Time Receive d Time (Source) Location / / Volume Laterality Blood specimen 03/04/2017 2:52 PM 017 8:01 (specimen) CDT PM CDT Laura Aguero MD LAB - BLOOD ORDERABLES Performing Organization Address City/State/ZIP Code Phon e Number [facility] [address] [address] [phone] [facility] [address] [address], [facility] [phone] documented in this encounter Visit Diagnoses Diagnosis [...] [id number] documented in this encounter Care Teams Jumpbasting Armhole Baster Relationship Specialty Start Date End Date Maribel Limon, PCP - General Pediatrics 02/19/1701/25 Kassi Vidales MD Pediatric Gastroenterology [facility] [place][note 2][address] [place] [id number] documented as of this encounter
--- OUTSIDE RECORDS SUMMARY | 2022-02-02 13:46 | XMS_ITS | Encounter Summary ---
:2001 Author Organization [place] Address [address] [place] [address] Care Team Providers Name Role Phone Maribel Limon MD Primary Care Provider [phone] Kassi Vidales MD Unavailable [phone] Reason for Visit Reason Comments Urgent Care Consult expose to strep Encounter Details Date Type Department Care Team Description 09/12/2020 Office Visit [facility] Maribel Stephens Strep th roat (Primary Urgent Care Adam Clark MD Dx) [address] [address] [phone] Social History Tobacco Use Types Packs/Day Years [...] place to sleep or slept in a penitentiary (including now)? Sex Assigned at Date Recorded [...] to date with all of your vaccines. [employer] last reviewed this educational content on 06/07/2019 ?? [phone] [employer]. All rights reserved. This information is not [...] smoke, and stay away from secondhand smoke. [employer] last reviewed this educational content on 07/06/2019 ?? [phone] [employer]. All rights reserved. This information is not [...] Component Value Ref Test Analysis Performed At [facility] Range Method Time Signature Strep Specimen Throat 09/12/2020 [place] Description 7:20 PM CDT CLINICS [facility] Streptococcus Positive (A) NEG^Nega 09/12/2020 [place] Group A Rapid tive 7:33 PM CDT CLINICS [facility] Comment: Group A Streptococcal antigen d etected by immunoassay. Specimen Anatomical Collection Method Collection Time Receive d Time (Source) Location / / Volume Laterality Specimen from 09/12/2020 7:15 PM 09/13/19 7:22 throat CDT PM CDT (specimen) Maribel Stephens MD LAB - MICRO GENERAL ORDERABL Performing Organization Address City/State/ZIP Code Phon e Number [facility] [address] [place] [address] documented in this encounter Visit Diagnoses Diagnosis Strep throat - Primary Streptococcal sore throat documented in this encounter Care Teams Seafood And Service Meat Manager Relationship Specialty Start Date End Date Maribel Limon, PCP - General Pediatrics 02/19/1701/25 Kassi Vidales MD Pediatric Gastroenterology [facility] [place] [address] documented as of this encounter
--- OUTSIDE RECORDS SUMMARY | 2022-02-02 13:46 | XMS_ITS | Encounter Summary ---
:2000 [facility] Address [address], [place] [address] Care Team Providers Name Role Phone Unavailable Primary Care Provider Unavailable Reason for Referral Procedure/Equipment (Routine) - Incomplete Specialty Diagnoses / Procedures Referred By Contact Refer red To Contact Diagnoses Pain in estrella, unspecified laterality De Ball MD Procedures Airselect Elite/Standard Tall Boot([id number]) [address] [place], [place] [address] Referral ID Status Reason Start Date Expiration Date Visits V isits Requested Authorized [id number] Incomplete 12/07/2018 03/07/2020 1 1 Procedure/Equipment (Routine) - Incomplete Specialty Diagnoses / Procedures Referred By Contact Refer red To Contact Diagnoses Pain in estrella, unspecified laterality De Ball MD Procedures XR Tibia Fibula Rt 2 Views [address] [place], [place] [address] Referral ID Status Reason Start Date Expiration Date Visits V isits Requested Authorized [id number] Incomplete 12/04/2018 03/04/2020 1 1 Procedure/Equipment (Routine) - Incomplete Specialty Diagnoses / Procedures Referred By Contact Refer red To Contact Diagnoses Pain in estrella, unspecified laterality De Ball MD Procedures XR Tibia Fibula Lt 2 Views [address] [place], [place] [address] Referral ID Status Reason Start Date Expiration Date Visits V isits Requested Authorized [id number] Incomplete 12/04/2018 03/04/2020 1 1 Reason for Visit Reason Comments LEG PAIN Bilateral estrella DOP:11/25/18 s occer overuse? Encounter Details Date Type Department Care Team Description 12/04/2018 Office Visit [facility] Orthopedic De Ball MD Pain in estrella, Urgent Care [address] unspecified [address] [place], [place] laterality (Primary [place], [place] [phone] Dx) [phone] (Wo rk) Social History Tobacco Use Types [...] for all medical requests and questions at [phone] MRI Scheduling: To schedule an MRI at [facility] please call [phone] Paperwork Requests: Questions regarding FMLA or disability paperwork please call [phone] Phone lines are answered 8AM to 5PM Sunday - Sunday. Workers??? 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 PHYSICAL EXAM: [...] FINDINGS: ??Right tib-fib 2 views. No ac chemehuevi bony abnormalities. Joint spaces are intact Procedure [...] Diagnoses Diagnosis Pain in estrella, unspecified laterality - P rimary Pain in estrella, unspecified laterality documented in this encounter
--- OUTSIDE RECORDS SUMMARY | 2022-02-02 13:46 | XMS_ITS | Encounter Summary ---
:2001 Author Organization [place] Address [address] [facility] [address] Care Team Providers Name Role Phone Maribel Limon MD Primary Care Provider [phone] Kassi Vidales MD Unavailable [phone] Encounter Details Date Type Department Care Team Description 09/12/2020 Travel Social History Tobacco Use Types Packs/Day Years [...] / COVID-19? documented as of this encounter Plan of Treatment Not on filedocumented as of this encounter Visit Diagnoses Not on filedocumented in this encounter Care Teams Desktop Support Consultant Relationship Specialty Start Date End Date Maribel Limon, PCP - General Pediatrics 02/19/1701/25 Kassi Vidales MD Pediatric Gastroenterology [facility] [address] documented as of this encounter
--- OUTSIDE RECORDS SUMMARY | 2022-02-02 13:46 | XMS_ITS | Encounter Summary ---
:2001 Author Organization [facility] Address [address] [address] Care Team Providers Name Role Phone Unavailable Primary Care Provider Unavailable Reason for Visit Procedure/Equipment (Routine) - Incomplete Specialty Diagnoses / Procedures Referred By Contact Refer red To Contact Diagnoses Pain in estrella, unspecified laterality De Ball MD Procedures XR Tibia Fibula Lt 2 Views [address] [facility] [place], [place] [address] Referral ID Status Reason Start Date Expiration Date Visits V isits Requested Authorized [id number] Incomplete 12/04/2018 03/04/2020 1 1 Encounter Details Date Type Department Care Team Description 12/04/2018 [facility] De Ball, Pain in estrella, Procedure [address] [facility] [place] [address] [phone] Social History Tobacco Use Types Packs/Day Years [...]
--- OUTSIDE RECORDS SUMMARY | 2022-02-02 13:46 | XMS_ITS | Clinical Summary ---
:2001 Author Organization [facility] Address [address], [place] [address] Care Team Providers Name Role Phone Non [...] for each transition of care or referral. Document [employer] Allergies No known active allergies Medications Medication [...] Comments Blood Pressure 122/77 05/17/2020 1:10 PM AUTISM SPECIALIST Pulse 86 05/17/2020 1:10 PM AUTISM SPECIALIST Temperature 36.6 ??C (97.8 ??F) 05/17/2020 1:09 PM AUTISM SPECIALIST Respiratory Rate - - Oxygen Saturation - - Inhaled Oxygen Concentration - - Weight 68.1 kg (150 lb 2.1 oz) 05/17/2020 1:09 PM AUTISM SPECIALIST Height 166.7 cm (5' 5.63) 05/17/2020 1:09 PM AUTISM SPECIALIST Body Mass Index 24.51 05/17/2020 1:09 PM AUTISM SPECIALIST Plan of Treatment Health Maintenance Due Date [...] ss Type Group BCBS BCBS OUT OF [id number] 2020-Present [address] [address] [place] [address] Care Teams Hairspring Vibrator Relationship Specialty Start Date End Date Non Pn, Clinician, PCP - General 04/13/20 [place] [address]
--- OUTSIDE RECORDS SUMMARY | 2022-02-02 13:46 | XMS_ITS | Encounter Summary ---
:2001 Author Organization [facility] Address [address], [place] [address] Care Team Providers Name Role Phone Unavailable Primary Care Provider Unavailable Encounter Details Date Type Department Care Team Description 08/28/2013 Hospital Encounter [facility] [address] [place] [address] [facility] Rickie Pacheco MD Laboratories [address] [facility] [address] [address] [place] [address] Social History Tobacco Use Types [...] Strep Resp Cult (08/28/2013 2:56 PM CDT) [facility] Method Time Signature Source Throat HP CONVERSION [...]
--- OUTSIDE RECORDS SUMMARY | 2022-02-02 13:46 | XMS_ITS | Clinical Summary ---
:2001 Author Organization [place] Address [address] [facility] [place] [address] Care Team Providers Name Role Phone Kassi Vidales MD Unavailable [phone] Lavern Tristan MD Primary Care Provider [phone] Allergies No known active allergies Medications Medication [...] ss Type Group BCBS BCBS OUT OF [id number] 2017-Lilli [phone] [address] [address] Indemnity STATE [address] [place] [address] Care Teams Interpreter Translator Relationship Specialty Start Date End Date Lavern Tristan PCP - General Pediatrics 01/26/21 MD [facility] [address] [place], [place] [id number] Kassi Vidales MD Pediatric Gastroenterology [address] [place] [id number]
[2022-02-02 13:48] LABS: Basophils Absolute Auto 0.05 K/uL (0.00-0.30); Basophils Percent Auto 0.9 % (0.0-3.0); Eosinophils Absolute Auto 0.33 K/uL (0.00-0.50); Hematocrit 40.6 % (33.0-51.0); Hemoglobin* 13.6 gm/dL (12.0-16.0); Immature Granulocytes Abs Auto 0.01 K/uL (0.00-0.30); Lymphocytes Absolute Auto 1.59 K/uL (0.90-2.90); Mean Corpuscular HGB Conc 34 gm/dL (32-36); Mean Corpuscular Hemoglobin 31 pg (26-34); Mean Corpuscular Volume 92 fL (80-100); Monocytes Percent Auto 8.2 % (0.0-11.0); Neutrophils Absolute Auto 3.05 K/uL (1.7-7.0); Neutrophils Percent Auto 55.7 % (42.0-72.0); Platelet Count* 283 K/uL (140-440); RDW Coefficient of Variation % 12.2 % (11.5-15.5); Red Blood Count 4.41 m/uL (4.00-5.20); White Blood Count* 5.48 K/uL (4.50-11.00)
[2022-02-02 13:49] LABS: Slide Review Reflex No
[2022-02-02 14:07] LABS: Creatinine* 0.8 mg/dL (0.5-1.5); Est. Creatinine Clearance* 97.99; Estimated Glomerular Filt Rate 108 ml/min
[2022-02-02 14:16] LABS: Chloride* 102 mmol/L (96-114); Potassium* 4.6 mmol/L (3.6-5.1); Sodium* 137 mmol/L (135-149)
[2022-02-02 14:19] LABS: Blood Urea Nitrogen* 9 mg/dL (5-24); Carbon Dioxide* 23 mmol/L (20-32)
[2022-02-02 14:20] LABS: Calcium* 9.7 mg/dL (8.4-10.6); Glucose* 96 mg/dL (60-115)
[2022-02-02 14:22] LABS: C Reactive Protein* 1.8 mg/dL (0.5-1.0)
[2022-02-02 14:52] VITALS: BP 104/63; PULSE 71; O2SAT 99
[2022-02-02 15:05] LABS: Erythrocyte SedimentationRate* 12 mm/hr (2-20)
--- NOTE | 2022-02-02 15:17 | ED.NURSE ---
Wound on pt lower L leg irrigated with 100mLs of sterile NS. Pt tolerated well.
--- NOTE | 2022-02-02 15:35 | ED.NURSE ---
Pt wound on lower L leg bandaged with telfa, gauze pads, and wrapped with coban.
== END 2022-02-02 15:41 | disposition home or self-care (01) ==
PROVIDERS: Emergency Provider Family Medicine
DX: L02.416 Cutaneous abscess of left lower limb (principal)
CPT/HCPCS: 10060; 36415; 76882; 80048; 85025; 85651; 86140; 87070; 87186; 99284

== ENCOUNTER 2022-04-02 22:18 | Emergency (ER) | payer BC, SELFPAY ==
[2022-04-02 22:31] VITALS: BP 102/60; PULSE 86; RESP 18; TEMP 36.5; O2SAT 97
--- NOTE | 2022-04-03 01:01 | ED.GENADULT ---
HPI - General Adult General Time Seen by Provider: 01:01 Date Seen: 04/03/22 Chief complaint: Skin/Abscess/Foreign Body Stated complaint: Skin infection getting worse - On buttocks Time Seen by Provider: 04/03/22 00:46 Source: patient Mode of arrival: ambulatory Limitations: no limitations History of Present Illness HPI narrative: 21-year-old female who comes in with concern for a rash on the buttocks. Patient notes a history of an abscess on the leg which she had drained a couple months ago. Started developing a sore area on the right buttocks 4 days ago, went to urgent care and was started on doxycycline. However the area has gotten bigger and more tender. No drainage. Denies fevers, does admit some body aches. No nausea vomiting. Related Data Home Medications Medication Instructions Recorded Confirmed fluoxetine 40 mg capsule 40 mg PO DAILY 01/28/22 02/07/22 lisdexamfetamine 40 mg capsule 40 mg PO DAILY 01/28/22 02/07/22 (Vyvanse) Previous Rx's Medication Instructions Recorded sulfamethoxazole 800 1 tab PO BID #20 tabs 01/28/22 mg-trimethoprim 160 mg tablet famotidine 40 mg tablet 40 mg PO QDAY PRN allergic 02/07/22 reaction #7 tabs hydroxyzine HCl 50 mg tablet 50 mg PO QID PRN itching #14 tabs 02/07/22 Allergies Allergy/AdvReac Type Severity Reaction Status Date / Time Sulfa (Sulfonamide Allergy Mild Rash Verified 02/07/22 14:40 Antibiotics) Review of Systems Status of ROS: Reports: 10 or more systems reviewed and unremarkable except as noted in History and below [facility] Social History Smoking Status: Never smoker Do you use any of these nicotine containing products: E-Cigarettes How often do you have a drink containing alcohol: 2-3 times a week How many standard drinks containing alcohol do you have on a typical day: 7 to 9 How often do you have six or more drinks on one occasion: Weekly AUDIT-C Alcohol total score: 9 Non-prescribed substance use: denies use Exam Narrative: Exam Narrative: General: Well-developed and well-nourished, no acute distress Head: Atraumatic and normocephalic Eyes: Pupils are equal reactive, extraocular motions intact, conjunctiva clear ENT: External nose and ears are normal, posterior pharynx without erythema or exudate Neck: No midline cervical tenderness, full spontaneous range of motion the neck, trachea midline, no adenopathy Heart: Regular rate and rhythm no murmurs or thrills Lungs: Clear to auscultation bilaterally without wheezes or crackles Abdomen: Soft, nontender, nondistended with active bowel sounds Musculoskeletal: No tenderness, deformity, or edema Neurologic: Awake, alert, and oriented x3, no gross focal neurologic deficits, cranial nerves intact as tested Psych: Mood and affect are appropriate Skin: Left buttock 10 cm area of erythema and induration with central 1 cm flocculence and two pustules. Otherwise no tenderness extending up the buttock or to the perineum. Const: Vital Signs, click to edit/add: Vital Signs - 24 hr 04/02/22 22:31 Temperature 97.7 F Pulse Rate [Pulse Oximeter] 86 Respiratory Rate 18 Blood Pressure [Ri ght Upper Arm] 102/60 Pulse Oximetry 97 Oxygen Delivery Me thod Room Air Course Course Hospital Course: Patient seen examined, prior records are reviewed. Differential diagnosis includes but not limited to abscess, cellulitis, erythema migrans drug reaction. Patient presents with a painful area on the left buttock, getting worse in spite doxycycline. On exam there is approximately 10 cm erythema and induration with about 1 cm of central flocculence. In this area there are 2 pinpoint pustules as well. No systemic signs of infection, afebrile, no tachycardia. Discussed plan for incision and drainage with the patient. Lidocaine was injected in the area. Will allow this to set in and plan for drainage. Reevaluation(s) Reevaluation #1: Incision and drainage, left buttock. Risks and benefits discussed with patient, verbal consent was obtained. Area was anesthetized with lidocaine 1% with epi 1 mL. Stab incision was attempted and patient had some discomfort so additional 3 mL of lidocaine 1% with epinephrine were infused. Patient was more comfortable and a stab incision was made. Small amount of purulent drainage was obtained. A cruciate incision was then performed and extended down a little deeper into a palpable cavity. Small amount of further purulent material was expressed. Curved hemostat was used to break up loculations. Patient tolerated this well and a packing was placed. Discussed wound care. Vital Signs Vital signs: Initial Vital Signs Temperature 97.7 F 04/02/22 22:31 Temperature Source Temporal Artery Scan 04/02/22 22:31 Pulse Rate 86 04/02/22 22:31 Pulse Rhythm 04/02/22 22:31 Respiratory Rate 18 04/02/22 22:31 Blood Pressure 102/60 04/02/22 22:31 Blood Pressure Mean 74 04/02/22 22:31 Blood Pressure Position Sitting 04/02/22 22:31 Pulse Oximetry 97 04/02/22 22:31 Oxygen Delivery Method 04/02/22 22:31 Vital Signs Temperature 97.7 F 04/02/22 22:31 Pulse Rate 86 04/02/22 22:31 Respiratory Rate 18 04/02/22 22:31 Blood Pressure 102/60 04/02/22 22:31 Pulse Oximetry 97 04/02/22 22:31 Oxygen Delivery Method 04/02/22 22:31 Temperature 97.7 F 04/02/22 22:31 Pulse Rate 86 04/02/22 22:31 Respiratory Rate 18 04/02/22 22:31 Blood Pressure 102/60 04/02/22 22:31 Pulse Oximetry 97 04/02/22 22:31 Oxygen Delivery Method 04/02/22 22:31 Medical Decision Making Medical Records Medical records reviewed: Yes I reviewed the patient's medical records Lab Data Lab results reviewed: Yes I reviewed the patient's lab results Discharge Plan Discharge Clinical Impression: Cellulitis and abscess of buttock Patient Disposition: Home, Self-Care Condition: Stable Instructions: Abscess Incision and Drainage (DC) Additional Instructions: Do wash gently with soap and water daily. Follow-up in wound care clinic this week, call [phone] for an appointment Activity Level: No Restrictions Discharge Diet: Regular Prescriptions: No Action hydroxyzine HCl 50 mg tablet 50 mg PO QID PRN (Reason: itching) Qty: 14 0RF famotidine 40 mg tablet 40 mg PO QDAY PRN (Reason: allergic reaction) Qty: 7 0RF fluoxetine 40 mg capsule 40 mg PO DAILY Label Comments: TAKE 1 CAPSULE BY MOUTH EVERY DAY Vyvanse 40 mg capsule 40 mg PO DAILY Label Comments: TAKE 1 CAPSULE BY MOUTH EVERY DAY sulfamethoxazole-trimethoprim 800-160 mg tablet 1 tab PO BID Qty: 20 0RF Follow Up/Referrals: Provider,Not a Local [Primary Care Provider] - Stand Alone Forms: MyHealth Info Instructions
--- OUTSIDE RECORDS SUMMARY | 2022-04-03 01:52 | XMS_ITS | Clinical Summary ---
:2001 Author Organization [facility] Address [address], [place] [address] Care Team Providers Name Role Phone Non Pn, Clinician Primary Care Provider Unavailable Source Comments You [...] for each transition of care or referral. [employer] Allergies No known active allergies Medications Medication [...] drin ks weekly while at college alcohol) Sex Assigned at Date Recorded Not on file Last Filed Vital Signs Vital Sign Reading Time Taken Comments Blood Pressure 122/77 05/17/2020 1:10 PM INSURANCE AGENCY MANAGER Pulse 86 05/17/2020 1:10 PM INSURANCE AGENCY MANAGER Temperature 36.6 ??C (97.8 ??F) 05/17/2020 1:09 PM INSURANCE AGENCY MANAGER Respiratory Rate - - Oxygen Saturation - - Inhaled Oxygen Concentration - - Weight 68.1 kg (150 lb 2.1 oz) 05/17/2020 1:09 PM INSURANCE AGENCY MANAGER Height 166.7 cm (5' 5.63) 05/17/2020 1:09 PM INSURANCE AGENCY MANAGER Body Mass Index 24.51 05/17/2020 1:09 PM INSURANCE AGENCY MANAGER Plan of Treatment Health Maintenance Due Date [...] ss Type Group BCBS BCBS OUT OF [id number] 2020-Present [address] [address] [place] [address] Care Teams Assistant Professor Of Spanish Relationship Specialty Start Date End Date Non Pn, Clinician, PCP - General 04/13/20 [place] [address]
--- OUTSIDE RECORDS SUMMARY | 2022-04-03 01:52 | XMS_ITS | Clinical Summary ---
:2001 Author Organization [employer] [place] [address] Care Team Providers Name Role Phone [facility] Unavailable Unavailable Aylin Oswald Primary Care Provider [phone] Allergies Active Allergy Reactions Severity Noted Date Comments Sulfamethoxazole-Trimethoprim Hives, Itching 2 Medications Medication Sig Dispensed Refills Start Date End Date Status Vyvanse 40 mg capsule Take 40 mg by 0 01/11/2022 Active mouth once daily. FLUoxetine (PROZAC) 40 Take 40 mg by 0 01/10/2022 Active mg capsule mouth once daily. famotidine (PEPCID) 40 TAKE 1 TABLET BY 0 02/07/2022 Active mg tablet MOUTH EVERY DAY NEEDED FOR ALLERGIC REACTION dextroamphetamine-amph Take 1 Tablet (20 0 2 Active etamine (AdderalL) 20 mg) by mouth once mg tablet daily. polyethylene glycoL Mix 1 scoop (17 g) 235 g 0 02/17/2022 Active (MIRALAX) 17 gram/dose in liquid then powderIndications: take by mouth once Chronic constipation daily. Active Problems Problem Noted Date KAN (generalized anxiety disorder) 04/13/2020 Other specified eating disorder 04/13/2020 Recurrent major depressive episodes, moderate 04/13/20 20 Encounters Date Type Specialty Care Team Description 02/21/2022 Orders Only Scanner <No scans attac hed> 02/17/2022 Ancillary Procedure 02/17/2022 Office Visit Aylin Oswald Follow Up (BENJI Jacobson feels better, s till some pain from cyst) 02/16/2022 Office Visit Tobi Barlow Allergies (Rec urrent Mili, MBBS bacterial infe ctions, throat, eye, el bow and left calf (Mrsa)infection ) 02/16/2022 Travel 02/13/2022 Ancillary Procedure 02/13/2022 Office Visit Smitha Belcher Proble BENJI Otero (Yesterday wok e up with horrible back p ain. Had urgency and holley nful urination./Pain got worse as the da y went on. /Allergic t o bactrim but took one la st night thought it woul d help with infection. /Patient was told to sto p taking bactrim, took o ne pill last night. //) 02/13/2022 Travel 02/10/2022 Office Visit Aylin Oswald PA 02/10/2022 Travel 02/09/2022 Telephone Aylin Oswald PA 02/08/2022 Telephone Aylin Oswald PA 02/02/2022 Orders Only Scanner <No scans attac hed> 02/02/2022 Orders Only Scanner <No scans attac hed> 02/02/2022 Orders Only Scanner <No scans attac hed> 02/02/2022 Orders Only Scanner <No scans attac hed> from Last 3 Months Immunizations Name Administration Dates Next Due DTaP 08/23/2006, 02/18/2002, 2001, 2001 DTaP-HIB (TriHIBIT) 11/25/2002 HIB PRP-T (ActHIB,Hiberix) 02/18/2002, 2001, 2 Hepatitis A (Peds) 01/10/2008, 08/23/2006 Hepatitis B (Peds) 08/21/2002, 05/23/2002 Hepatitis B, Unspecified 02/18/2002 Human Papilloma Virus Vaccine 07/15/2013, 02/07/2013, 2012 Inactivated Polio Vaccine 08/23/2006, 08/21/2002, 2001 , 2001 Influenza, IIV3 (Age 6-35 mos) 05/16/2012 Influenza, IIV3 (Age >=3 years) 03/20/2007 Influenza, IIV4 04/28/2021, 07/18/2019, 03/05/2017, 03/02/2015 Influenza, IIV4 (=>6mos) MDV 02/19/2020 Influenza, Live, Intranasal Laiv3 12/24/2009, 02/13/2008 Influenza,LAIV4 Live Intranasal 12/25/2012 (Flumist) MMR 08/21/2002 MMRV 08/23/2006 Meningococcal B 04/02/2020, 12/15/2019 Meningococcal Vaccine (Menactra) 10/12/2017, 12/25/2012 Pneumococcal conj 7-Valent (Prevnar 7) 11/25/2002, 3, 02/18/2002, 2001 Tdap 12/25/2012 Varicella Vaccine 08/21/2002 Family History Medical History Relation Name Comments Cancer-breast Mother Relation Name Status Comments Mother Social History Tobacco Use Types Packs/Day Years Used Date Never Smoker Smokeless Tobacco: Never Used Alcohol Use Standard Drinks/Week Comments Yes 0 (1 standard drink = 0.6 oz pure alcoho l) on weekends Alcohol Habits Answer Date Recorded How often do you have a drink containing alcohol? Not asked How many drinks containing alcohol do you have on a typical Not asked day when you are drinking? How often do you have six or more drinks on one occasion? No t asked Comment: on weekends 02/10/2022 Sex Assigned at Date Recorded Not on file Obstetrics History Last Filed Vital Signs Vital Sign Reading Time Taken Comments Blood Pressure 115/79 02/17/2022 1:50 PM CDT Pulse 100 02/17/2022 1:50 PM CDT Temperature 36.6 ??C (97.8 ??F) 02/13/2022 9:23 AM CDT Respiratory Rate 18 02/16/2022 2:53 PM CDT Oxygen Saturation 96% 02/17/2022 1:50 PM CDT Inhaled Oxygen Concentration - - Weight 54.9 kg (121 lb) 02/17/2022 1:50 PM CDT Height 166.7 cm (5' 5.63) 02/10/2022 2:06 PM CDT Body Mass Index 19.75 02/10/2022 2:06 PM CDT Plan of Treatment Health Maintenance Due Date Last Done Comments Well Child Check for age 3-20 07/20/2004 HIV for age 15-65 2016 Hepatitis C screening for age 0408/21/2019 18-79 COVID-19 vaccine series (4 - 06/14/2021 04/19/2021, 021, Booster for Moderna series) 07/18/2020 Influenza for age 9-49 01/05/2022 04/28/2021, 02/19/2020, 07/18/2019, Additional history exists Tetanus booster 12/25/2022 12/25/2012 BMI (ht and wt on same day) for 02/10/2023 02/10/2022 age 18+ Chlamydia for age 16-24 02/13/2023 02/13/2022 Depression screening for age 12+ 02/13/2023 02/13/2022, 11/2021 Tdap Completed 12/25/2012 HPV series for age 9-26 Completed 07/15/2013, 02/07/2013, 12/25/2012 Meningococcal series for age 11-21 Completed 10/12/2017, 0 12/25/2012 Procedures Procedure Name Priority Date/Time Associated Diagnosis Comme nts SCAN 02/21/2022 12:00 Results for CORRESP-LABORATORY AM CDT this proc edure RESULTS are in the results section. CT ABDOMEN PELVIS W RACHAEL 02/17/2022 3:11 Pelvic pain Resul ts for PM CDT this procedure are in the results section. US PELVIS COMPLETE RACHAEL 02/13/2022 11:31 Pelvic pain Resul ts for TV AM CDT this procedure are in the results section. TRICHOMONAS, Routine 02/13/2022 10:15 Pelvic pain Results for ELKIN, AND AM CDT this procedure BACTERIAL VAGINOSIS are in t he BY MOHINI results section. GC CHLAMYDIA TRACH Routine 02/13/2022 10:15 Pelvic pain Resul ts for PROBE AM CDT this procedure are in the results section. IMMUNOGLOBULINS,IGG/ Add On 02/13/2022 10:02 Allergic Res ults for A/M AM CDT rhinoconjunctivitis this pro cedure are in the results section. EBV AB IGG IGM AND Add On 02/13/2022 10:02 Malaise Resul ts for EBNA AM CDT this procedure are in the results section. HETEROPHILE Add On 02/13/2022 10:02 Malaise Results for AM CDT this procedure are in the results section. CBC WITH AUTO Routine 02/13/2022 10:02 Pelvic pain Results fo r DIFFERENTIAL AM CDT this procedure are in the results section. SEDIMENTATION RATE STAT 02/13/2022 10:02 Pelvic pain Resul ts for AM CDT this procedure are in the results section. C-REACTIVE PROTEIN STAT 02/13/2022 10:02 Pelvic pain Resul ts for AM CDT this procedure are in the results section. CBC WITH AUTO Routine 02/13/2022 10:02 Pelvic pain Results fo r DIFFERENTIAL AM CDT this procedure are in the results section. URINE CULTURE Routine 02/13/2022 9:23 Dysuria Results for AM CDT this procedure are in the results section. UA W/ SEDIMENT EXAM Routine 02/13/2022 9:23 Dysuria Resul ts for REFLEXED PER AM CDT this procedure CRITERIA are in the results section. IGA Routine 02/10/2022 3:08 Recurrent infections Resu lts for PM CDT this procedure are in the results section. SCAN-LABORATORY 02/02/2022 1:40 Results f or REPORT PM CDT this procedure are in the results section. SCAN-LABORATORY 02/02/2022 12:00 Results for REPORT AM CDT this procedure are in the results section. SCAN-ULTRASOUND 02/02/2022 12:00 Results for REPORT AM CDT this procedure are in the results section. SCAN-ULTRASOUND 02/02/2022 12:00 Results for REPORT AM CDT this procedure are in the results section. from Last 3 Months Results SCAN CORRESP-LABORATORY RESULTS (02/21/2022 12:00 AM CDT) Narrative This result has an attachment that is no t available. Scanner OTHER CT ABDOMEN PELVIS W (02/17/2022 3:11 PM CDT) Anatomical Region Laterality Modality Abdomen, Pelvis, AORTA, LIVER, SPLEEN Co mputed Tomography Specimen (Source) Anatomical Collection Method Collection Time Re ceived Time Location / / Volume Laterality 02/17/2022 3:39 PM CDT Narrative 02/17/2022 3:39 PM CDT For Patients: ??As a result of the 21st Century Cures Act, medical imaging exams and procedure report s are released immediately into [facility]. ??You may view this report before your referring provider. ??If you have questions, please contact your health care provider. Indication: Pelvic pain Technique: Postcontrast CT abdomen and pelvis. Oral water. 100 cc Omnipaque 350 intravenous contrast. Please note that all CT scans at this fa cility use dose modulation, iterative reconstruction, and/or weight-based dosing when appropriate to reduce radiation dose to as low as reasonably achievable. Comparison: Pelvic ultrasound 02/13/2022. Findings: Lung bases are clear. No pleural effusio n or infiltrate. No free intraperitoneal air. Normal liver and gallbladder. Normal spleen and pancreas. Normal adrenal glands and kidneys. Large volume of stool i s present within the cecum. No evidence of appendicitis. No bowel obstruction. Normal bladder, uterus and ovaries for age. Osseous structures normal. No adenopathy, free fluid or abscess. Impression: Large volume stool in the cecum within t he right side of the pelvis consistent with fecal impaction/constipation. No bowel obstruction or inflammatory change. Please note that all CT scans at this fa cility use dose modulation, iterative reconstruction, and/or weight-based dosing when appropriate to reduce radiation dose to as low as reasonably achievable. Dictated by Antolin Chen MD @ Feb 17 2 022 ??3:39PM (Electronically Signed) ?? Procedure Note Antolin Chen MD - 02/17/2022For matting of this note might be different from the original. For Patients: As a result of the Cures Act, medical imaging exams and procedure reports are released immediately into your electronic medical record. You may view this report before your referring provider. If you have questions, please contact [facility] health care provider. Indication: Pelvic pain Technique: Postcontrast CT abdomen and pelvis. Oral water. 100 cc Omnipaque 350 intravenous contrast. Please note that all CT scans at this fa cility use dose modulation, iterative reconstruction, and/or weight-based dosing when appropriate to reduce radiation dose to as low as reasonably achievable. Comparison: Pelvic ultrasound 02/13/2022. Findings: Lung bases are clear. No pleural effusio n or infiltrate. No free intraperitoneal air. Normal liver and gallbladder. Normal spleen and pancreas. Normal adrenal glands and kidneys. Large volume of stool is present within the cecum. No evidence of appendicitis. No bowel obstruction. Normal bladder, uterus and ovaries for age. Osseous structures normal. No adenopathy, free fluid or abscess. Impression: Large volume stool in the cecum within t he right side of the pelvis consistent with fecal impaction/constipation. No bowel obstruction or inflammatory change. Please note that all CT scans at this [facility] use dose modulation, iterative reconstruction, and/or weight-based dosing when appropriate to reduce radiation dose to as low as reasonably achievable. Dictated by Antolin Chen MD @ Feb 17 2 022 3:39PM (Electronically Signed) Aylin LEBLANC CT US PELVIS COMPLETE TV (02/13/2022 11:31 AM CDT) Anatomical Region Laterality Modality Pelvis, OVARIES, UTERUS Ultrasound Specimen (Source) Anatomical Collection Method Collection Time Re ceived Time Location / / Volume Laterality 02/13/2022 1:07 PM CDT Impressions 02/13/2022 1:07 PM CDT No uterine fibroid. Septated right ovarian cyst measuring 1.8 cm. No evidence of ovarian torsion or excess pelvic free fluid. Dictated by Antolin Chen MD @ Feb 13 2 022 ??1:07PM (Electronically Signed) ?? Narrative 02/13/2022 1:07 PM CDT For Patients: ??As a result of the Century Cures Act, medical imaging exams and procedure report s are released immediately into your [facility] medical record. ??You may view this report before your referring provider. ??If you have questions, please contact your health care provider. CLINICAL HISTORY: Pelvic pain TECHNIQUE: 2D donis scale and color Doppler images w ere acquired of the pelvis using a transvaginal approach. FINDINGS: On transvaginal imaging, the myometrium has a normal uniform echotexture. The uterus measures 5.1 x 2.8 x 1.7 cm. The endometrial lining measures 7 mm in thickness. The left ovary measures 2.4 x 2.2 x 1.7 cm in size and the right ovary measures 3.2 x 2.0 x 2.0 cm. There is a septated right ovarian cyst measuring 1.8 x 1.2 x 1.4 cm. The ovaries demonstrate normal ar terial and venous blood flow on color Do ppler analysis. There are no suspicious fluid collections within the cul-de-sac. Procedure Note Antolin Chen MD - 02/13/2022For matting of this note might be different from the original. For Patients: As a result of the ntury Cures Act, medical imaging exams and procedure reports are released immediately into your electronic medical record. You may view this report before your referring provider. If you have questions, please contact yo health care provider. CLINICAL HISTORY: Pelvic pain TECHNIQUE: 2D donis scale and color Doppler images w ere acquired of the pelvis using a transvaginal approach. FINDINGS: On transvaginal imaging, the myometrium has a normal uniform echotexture. The uterus measures 5.1 x 2.8 x 1.7 cm. The endometrial lining measures 7 mm in thickness. The left ovary measures 2.4 x 2.2 x 1.7 cm in size and the right ovary measures 3.2 x 2.0 x 2.0 cm. There is a septated right ovarian cyst measuring 1.8 x 1.2 x 1.4 cm. The ovaries demonstrate normal arterial and venous blood flow on color Doppler bernardo sis. There are no suspicious fluid collections within the cul-de-sac. IMPRESSION: No uterine fibroid. Septated right ovari an cyst measuring 1.8 cm. No evidence of ovarian torsion or excess pelvic free fluid. Dictated by Antolin Chen MD @ Feb 13 2 022 1:07PM (Electronically Signed) Smitha LEBLANC TRICHOMONAS, ELKIN, AND BACTERIAL VAGINOSIS BY MOHINI (02/13/2022 10:15 AM CDT) [facility] Method Time Signature ELKIN SPECIES Negative Negative 02/13/2022 [facility] 9:56 PM CDT LABORATORY-[facility]UR[facility] TRAL LABORATORY ELKIN Negative Negative 02/13/2022 [facility] GLABRATA 9:56 PM CDT LABORATORY-[facility]UR[facility] TRAL LABORATORY TRICHOMONAS VVA Negative Negative 02/13/2022 [facility] 9:56 PM CDT LABORATORY-[facility]UR[facility] TRAL LABORATORY BACTERIAL Negative Negative 02/13/2022 [facility] VAGINOSIS 9:56 PM CDT LABORATORY-GAURAV TRAL LABORATORY Specimen Anatomical Collection Method Collection Time Receive d Time (Source) Location / / Volume Laterality Other VAGINAL SWAB / Non-Blood / 02/13/2022 10:15 2 Unknown Unknown AM CDT 10:32 AM CDT Smitha LEBLANC MICROBIOLOGY Performing Organization Address City/State/ZIP Code Phon e Number [facility] [address] [facility] [place] [address] LABORATORY-CENTRAL 2000 LABORATORY GC CHLAMYDIA TRACH PROBE (02/13/2022 10:15 AM CDT) [facility] Method Time Signature CHLAMYDIA PROBE Negative 02/13/2022 [facility] 11:11 PM CDT LABORATORY-GAURAV TRAL LABORATORY N GONORRHOEAE Negative 02/13/2022 [facility] PROBE 11:11 PM CDT LABORATORY-GAUR[facility] TRAL LABORATORY Specimen Anatomical Collection Method Collection Time Receive d Time (Source) Location / / Volume Laterality Other VAGINAL SWAB / Non-Blood / 02/13/2022 10:15 2 Unknown Unknown AM CDT 10:32 AM CDT Smitha LEBLANC MICROBIOLOGY Performing Organization Address City/State/ZIP Code Phon e Number [facility] [address] [facility] [place] [address] LABORATORY-CENTRAL 1999 LABORATORY SEDIMENTATION RATE (02/13/2022 10:02 AM CDT) [facility] Method Time Signature SEDIMENTATION RATE <1 <20 mm/hr 02/13/2022 [facility] 5:06 PM CDT LABORATORY-GAURAV TRAL LABORATORY Specimen Anatomical Collection Method / Collection Time Recei olive Time (Source) Location / Volume Laterality Blood BLOOD SPECIMEN / Venipuncture / 02/13/2022 10:02 02/13 Unknown Unknown AM CDT 10:04 AM CDT Smitha LEBLANC HEMATOLOGY Performing Organization Address City/State/ZIP Code Phon e Number [facility] [address] [place] [address] LABORATORY-CENTRAL 1999 LABORATORY (ABNORMAL) CBC WITH AUTO DIFFERENTIAL (02/13/2022 10:02 AM CDT) [facility] Method Time Signature WHITE BLOOD 8.3 4.5 - 11.0 02/13/2022 [facility] COUNT thou/cu mm 10:08 AM CDT [facility] RED BLOOD COUNT 4.26 4.00 - 02/13/2022 [facility] 5.20 10:08 AM CDT [place] mil/cu mm CLINIC HEMOGLOBIN 13.2 12.0 - 02/13/2022 [facility] 16.0 g/dL 10:08 AM T [facility] HEMATOCRIT 38.0 33.0 - 02/13/2022 [facility] 51.0 % 10:08 AM [facility] MCV 89 80 - 100 02/13/2022 [facility] 10:08 AM T [facility] MCH 31.0 26.0 - 02/13/2022 [facility] 34.0 pg 10:08 AM [facility] MCHC 34.7 32.0 - 02/13/2022 [facility] 36.0 g/dL 10:08 AM [facility] RDW 12.5 11.5 - 02/13/2022 [facility] 15.5 % 10:08 AM [facility] PLATELET COUNT 292 140 - 440 02/13/2022 [facility] thou/cu mm 10:08 AM [facility] MPV 8.7 6.5 - 11.0 02/13/2022 [facility] 10:08 AM [facility] % NEUT 85.0 % 02/13/2022 [facility] 10:08 AM [facility] % LYMPH 7.1 % 02/13/2022 [facility] 10:08 AM [facility] % MONO 3.0 % 02/13/2022 [facility] 10:08 AM [facility] % EOS 4.8 % 02/13/2022 [facility] 10:08 AM [facility] % BASO 0.1 % 02/13/2022 [facility] 10:08 AM [facility] ABSOLUTE 7.0 1.7 - 7.0 02/13/2022 [facility] NEUTROPHILS thou/cu mm 10:08 AM T [facility] ABSOLUTE 0.6 (L) 0.9 - 2.9 02/13/2022 [facility] LYMPHOCYTES thou/cu mm 10:08 AM [facility] ABSOLUTE 0.3 <0.9 02/13/2022 [facility] MONOCYTES thou/cu mm 10:08 AM T [facility] ABSOLUTE 0.4 <0.5 02/13/2022 [facility] EOSINOPHILS thou/cu mm 10:08 AM CDT [facility] ABSOLUTE 0.0 <0.3 02/13/2022 [facility] BASOPHILS thou/cu mm 10:08 AM CDT [facility] Specimen Anatomical Collection Method / Collection Time Recei olive Time (Source) Location / Volume Laterality Blood BLOOD SPECIMEN / Venipuncture / 02/13/2022 10:02 02/13 Unknown Unknown AM CDT 10:04 AM CDT Smitha LEBLANC HEMATOLOGY Performing Organization Address City/State/ZIP Code Phon e Number [facility] [address] [place] [address] (ABNORMAL) EBV AB IGG IGM AND EBNA (02/13/2022 10:02 AM CDT) [facility] Method Time Signature VCA IGG Positive (A) Negative 02/15/2022 [facility] 2:29 PM CDT LABORATORY-CE NTRAL LABORATORY EBV IGM Negative Negative 02/15/2022 [facility] 2:29 PM CDT LABORATORY-CE NTRAL LABORATORY EBNA IGG Positive (A) Negative 02/15/2022 [facility] 2:29 PM CDT LABORATORY-CE NTRAL LABORATORY EBV Suggests 02/15/2022 [facility] INTERPRETATION Past 2:29 PM CDT LABORATORY-CE Infection NTRAL LABORATORY Specimen Anatomical Collection Method / Collection Time Recei olive Time (Source) Location / Volume Laterality Blood BLOOD SPECIMEN / Venipuncture / 02/13/2022 10:02 02/13 Unknown Unknown AM CDT 10:04 AM CDT Narrative [facility] LABORATORY-CENTRAL LABORAT ORY - 02/15/2022 2:29 PM CDT Presence of detectable EBNA IgG and VCA IgG antibodies. ??A positive result suggests past infection. Smitha LEBLANC SEND OUTS Performing Organization Address City/State/ZIP Code Phon e Number [facility] [address] [place] [address] LABORATORY-CENTRAL 2000 LABORATORY (ABNORMAL) IMMUNOGLOBULINS,IGG/A/M (02/13/2022 10:02 AM CDT) P athologist Signature IGM 121.52 35.00 - 02/17/2022 [facility] 242.00 12:55 PM CDT LABORATORY-CENT mg/dL RAL LABORATORY IGA 72.75 (L) 84.50 - 02/17/2022 [facility] 499.00 12:55 PM CDT LABORATORY-CENT mg/dL RAL LABORATORY IGG 832.65 610.30 - 02/17/2022 [facility] 1,616.00 12:55 PM CDT LABORATORY-CENT mg/dL RAL LABORATORY Specimen Anatomical Collection Method / Collection Time Recei olive Time (Source) Location / Volume Laterality Blood BLOOD SPECIMEN / Venipuncture / 02/13/2022 10:02 02/13 Unknown Unknown AM CDT 10:04 AM CDT Tobi [facility] CHEMISTRY Performing Organization Address City/State/ZIP Code Phon e Number [facility] [address] [place] [address] LABORATORY-CENTRAL 2000 LABORATORY HETEROPHILE (02/13/2022 10:02 AM CDT) P athologist Signature HETEROPHILE Negative Negative 02/13/2022 [facility] 10:34 AM CDT [facility] Specimen Anatomical Collection Method / Collection Time Recei olive Time (Source) Location / Volume Laterality Blood BLOOD SPECIMEN / Venipuncture / 02/13/2022 10:02 02/13 Unknown Unknown AM CDT 10:04 AM CDT Smitha LEBLANC HEMATOLOGY Performing Organization Address City/State/ZIP Code Phon e Number [facility] [address] [place], [place] [id number] (ABNORMAL) C-REACTIVE PROTEIN (02/13/2022 10:02 AM CDT) Analysis Performed At Patho logist Time Signature C-REACTIVE 1.48 (H) <0.50 02/13/2022 [facility] PROTEIN mg/dL 5:30 PM CDT LABORATORY-GAURAV TRAL LABORATORY Specimen Anatomical Collection Method / Collection Time Recei olive Time (Source) Location / Volume Laterality Blood BLOOD SPECIMEN / Venipuncture / 02/13/2022 10:02 02/13 Unknown Unknown AM CDT 10:04 AM CDT Smitha LEBLANC CHEMISTRY Performing Organization Address City/State/ZIP Code Phon e Number [facility] [address] [place] [address] LABORATORY-CENTRAL 2000 LABORATORY URINE CULTURE (02/13/2022 9:23 AM CDT) [facility] Method Time Signature CULTURE <10,000 CFU/mL 02/14/2022 [facility] multiple 2:04 PM CDT LABORATORY-GAURAV organisms TRAL LABORATORY Specimen Anatomical Collection Method Collection Time Receive d Time (Source) Location / / Volume Laterality Urine URINE SPECIMEN / Non-Blood / 02/13/2022 9:23 AM 02/13 9:23 Unknown Unknown CDT AM CDT Smitha LEBLANC MICROBIOLOGY Performing Organization Address City/State/ZIP Code Phon e Number [facility] [address] [facility] [place] [address] LABORATORY-[place] 1999 LABORATORY (ABNORMAL) UA W/ SEDIMENT EXAM REFLEXED PER CRITERIA (02/13/2022 9:23 AM CDT) [facility] Method Time Signature COLOR Yellow Yellow Color 02/13/2022 [facility] 9:27 AM T [facility] CLARITY Clear Clear 02/13/2022 [facility] Clarity 9:27 AM T [facility] SPECIFIC <=1.005 (A) 1.010, 02/13/2022 [facility] GRAVITY,URINE 1.015, 9:27 AM T [facility] 1.020, 1.025 [facility] PH,URINE 6.0 6.0, 7.0, 02/13/2022 [facility] 8.0, 5.5, 9:27 AM [facility] 6.5, 7.5, [facility] 8.5 UROBILINOGEN, Normal Normal EU/dl 02/13/2022 [facility] 9:27 AM T [facility] PROTEIN, Negative Negative 02/13/2022 [facility] URINE mg/dL 9:27 AM T [facility] GLUCOSE, Negative Negative 02/13/2022 [facility] URINE mg/dL 9:27 AM T [facility] KETONES,URINE Negative Negative 02/13/2022 [facility] mg/dL 9:27 AM T [facility] BILIRUBIN,URI Negative Negative 02/13/2022 [facility] [place] 9:27 AM T [facility] OCCULT Negative Negative 02/13/2022 [facility] CENTER BLOOD,URINE 9:27 AM CDT [facility] NITRITE Negative Negative 02/13/2022 [facility] 9:27 AM CDT [facility] LEUKOCYTE Negative Negative 02/13/2022 [facility] ESTERASE 9:27 AM CDT [facility] Specimen Anatomical Collection Method Collection Time Receive d Time (Source) Location / / Volume Laterality Urine URINE SPECIMEN / Non-Blood / 02/13/2022 9:23 AM 02/13 9:23 Unknown Unknown CDT AM CDT Smitha LEBLANC URINE Performing Organization Address City/State/ZIP Code Phon e Number [facility] [address] [place] [address] IGA (02/10/2022 3:08 PM CDT) athologist Signature IGA 84.55 84.50 - 02/13/2022 [facility] 499.00 1:36 PM CDT LABORATORY-CENTR mg/dL [place] LABORATORY Specimen Anatomical Collection Method / Collection Time Recei olive Time (Source) Location / Volume Laterality Blood BLOOD SPECIMEN / Venipuncture / 02/10/2022 3:08 2021 3:08 Unknown Unknown PM CDT PM CDT Aylin LEBLANC CHEMISTRY Performing Organization Address City/State/ZIP Code Phon e Number [facility] [address] [place] [address] LABORATORY-CENTRAL 1999 LABORATORY SCAN-LABORATORY REPORT (02/02/2022 1:40 PM CDT)Only the most recent of2 results within the time period is included. Narrative This result has an attachment that is no t available. Scanner OTHER SCAN-ULTRASOUND REPORT (02/02/2022 12:00 AM CDT)Only the most recent of2 results within the time period is included. Narrative This result has an attachment that is no t available. Scanner OTHER from Last 3 Months Insurance Payer Benefit Plan / Subscriber ID Effective Dates Phone Addre ss Type Tidal HP [id number] 2011-Prese [address] [place] [address] BLUE CROSS BLUE CROSS OF [id number] 2021-Prese [address] [facility] [place] [address] [place] [id number] 2021-Prosper [address] [address] [employer] [place] [address] Care Teams Bartender Relationship Specialty Start Date End Date Aylin Oswald PA PCP - General Physician Watershed Coordinator 02/13/22 [address] [place] [address] [facility] 04/15/20
--- OUTSIDE RECORDS SUMMARY | 2022-04-03 01:52 | XMS_ITS | Encounter Summary ---
:2001 Author Organization [place] Address [address] [facility] [place] [address] Care Team Providers Name Role Phone Maribel Limon MD Primary Care Provider [phone] Kassi Vidales MD Unavailable [phone] Reason for Visit Reason Comments Urgent Care Consult expose to strep Encounter Details Date Type Department Care Team Description 09/12/2020 Office Visit [facility] Maribel Stephens Strep th roat (Primary Urgent Care Adam Clark MD Dx) [address] [address] [facility] [phone] Social History Tobacco Use Types Packs/Day Years Used Date Smoking Tobacco: Light Smoker Smokeless Tobacco: Never Comments: smoke weeds sometimes Financial Resource Strain [...] place to sleep or slept in a half-way (including now)? Sex Assigned at Date Recorded [...] to date with all of your vaccines. [employer] last reviewed this educational content on 06/07/2019 ?? [phone] [employer]. All rights reserved. This information is not [...] smoke, and stay away from secondhand smoke. [employer] last reviewed this educational content on 07/06/2019 ?? [phone] [employer]. All rights reserved. This information is not [...] Component Value Ref Test Analysis Performed At [facility] Range Method Time Signature Strep Specimen Throat 09/12/2020 [place] Description 7:20 PM CDT [facility] Streptococcus Positive (A) NEG^Nega 09/12/2020 [place] Group A Rapid tive 7:33 PM CDT CLIN[facility] [place] Comment: Group A Streptococcal antigen d etected by immunoassay. Specimen Anatomical Collection Method Collection Time Receive d Time (Source) Location / / Volume Laterality Specimen from 09/12/2020 7:15 PM 09/13/19 21 7:22 throat CDT PM CDT (specimen) Maribel Stephens MD LAB - MICRO GENERAL ORDERABL ES Performing Organization Address City/State/ZIP Code Phon e Number [facility] [address] [place] [address] documented in this encounter Visit Diagnoses Diagnosis Strep throat - Primary Streptococcal sore throat documented in this encounter Care Teams Keypunch Operator Relationship Specialty Start Date End Date Maribel Limon, PCP - General Pediatrics 02/19/1701/25 Kassi Vidales MD Pediatric Gastroenterology [facility] [address] documented as of this encounter
--- OUTSIDE RECORDS SUMMARY | 2022-04-03 01:52 | XMS_ITS | Clinical Summary ---
:2001 Author Organization [place] Address [address] [facility] [place] [address] Care Team Providers Name Role Phone Kassi Vidales MD Unavailable [phone] Lavern Tristan MD Primary Care Provider [phone] Allergies No known active allergies Medications Medication [...] place to sleep or slept in a usp (including now)? Sex Assigned at Date Recorded [...] ORDERS 2001 CHLAMYDIA SCREENING 2001 Pneumococcal Vaccine: Pediatrics 08/21/2007 11/25/2002, , (0 to 5 Years) and At-Risk 02/18/2002, Additiona l history Patients (6 to 64 Years) (1 - PCV) exists DTAP/TDAP/TD IMMUNIZATION (6 - 2012 08/23/2006, 11/25, Tdap) 02/18/2002, Additional history exists HIV SCREENING 2016 HEPATITIS C SCREENING 08/21/2019 COVID-19 Vaccine (3 - Booster for 10/10/2020 08/15/2020, Moderna series) YEARLY PREVENTIVE VISIT 12/14/2020 12/15/2019, 11/13/2018 PHQ-2 (once per calendar year) 2021 INFLUENZA VACCINE (#1) 2022 02/19/2020, 07/18/2019, 03/05/2017, Additional history exists HEPATITIS B IMMUNIZATION Completed 08/21/2002, 05/23/2002, 02/18/2002 IPV IMMUNIZATION Completed 08/23/2006, 08/21/2002, 2001, Additional history exists HPV IMMUNIZATION Completed 07/15/2013, 02/07/2013, 12/25/2012 MENINGITIS IMMUNIZATION Completed 10/12/2017, 12/25/2012 Insurance Payer Benefit Plan / Subscriber ID Effective Dates Phone Addre ss Type Group BCBS BCBS OUT OF [id number] 2017-Lilli [phone] [address] [address] Indemnity STATE nt [address] [place] [address] Care Teams Asphalt Tamper Relationship Specialty Start Date End Date Lavern Tristan PCP - General Pediatrics 01/26/21 MD [place] [address] [facility] [address] [place], [place] [id number] Kassi Vidales MD Pediatric Gastroenterology [address] [place], [place] [id number]
--- OUTSIDE RECORDS SUMMARY | 2022-04-03 01:52 | XMS_ITS | Encounter Summary ---
:2001 Author Organization [facility] Address [address] [place] [address] Care Team Providers Name Role Phone Unavailable Primary Care Provider Unavailable Encounter Details Date Type Department Care Team Description 08/28/2013 Hospital Encounter [facility] [address] [place] [address] [facility] Rickie Pacheco MD Laboratories [address] [facility] [address] [place] [address] Social History Tobacco Use Types [...] Strep Resp Cult (08/28/2013 2:56 PM CDT) [facility] gist Method Time Signature Source Throat HP CONVERSION [...]
--- OUTSIDE RECORDS SUMMARY | 2022-04-03 01:52 | XMS_ITS | Encounter Summary ---
:2001 Author Organization [facility] Address [address], [place] [address] Care Team Providers Name Role Phone Unavailable Primary Care Provider Unavailable Reason for Referral Procedure/Equipment (Routine) - Incomplete Specialty Diagnoses / Procedures Referred By Contact Refer red To Contact Diagnoses Pain in estrella, unspecified laterality De Ball MD Procedures Airselect Elite/Standard Tall Boot(L4361) [address] [place], [place] [address] Referral ID Status Reason Start Date Expiration Date Visits V isits Requested Authorized [id number] Incomplete 12/07/2018 03/07/2020 1 1 Procedure/Equipment (Routine) - Incomplete Specialty Diagnoses / Procedures Referred By Contact Refer red To Contact Diagnoses Pain in estrella, unspecified laterality De Ball MD Procedures XR Tibia Fibula Rt 2 Views [address] [facility] [place] [place] [address] Referral ID Status Reason Start Date Expiration Date Visits V isits Requested Authorized [id number] Incomplete 12/04/2018 03/04/2020 1 1 Procedure/Equipment (Routine) - Incomplete Specialty Diagnoses / Procedures Referred By Contact Refer red To Contact Diagnoses Pain in estrella, unspecified laterality De Ball MD Procedures XR Tibia Fibula Lt 2 Views [address] [place], [place] [address] Referral ID Status Reason Start Date Expiration Date Visits V isits Requested Authorized [id number] Incomplete 12/04/2018 03/04/2020 1 1 Reason for Visit Reason Comments LEG PAIN Bilateral estrella DOP:11/25/18 s occer overuse? Encounter Details Date Type Department Care Team Description 12/04/2018 Office Visit [facility] Orthopedic De Ball MD Pain in estrella, Urgent Care [address] unspecified [address] [place], [place] laterality (Primary [place], [place] [address] Dx) [phone] (Wo rk) Social History Tobacco Use Types [...] for all medical requests and questions at [phone] MRI Scheduling: To schedule an MRI at [facility] please call [phone] Paperwork Requests: Questions regarding FMLA or disability paperwork please call [phone] Phone lines are answered 8AM to 5PM Sunday - Sunday. Workers??? 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 [...]
--- OUTSIDE RECORDS SUMMARY | 2022-04-03 01:52 | XMS_ITS | Encounter Summary ---
:2001 Author Organization [place] Address [facility] [place] [address] Care Team Providers Name Role Phone Maribel Limon MD Primary Care Provider [phone] Kassi Vidales MD Unavailable [phone] Encounter Details Date Type Department Care [...] place to sleep or slept in a mcfp (including now)? Sex Assigned at Date Recorded [...] on filedocumented in this encounter Care Teams Professor Of Literacy Relationship Specialty Start Date End Date Maribel Limon, PCP - General Pediatrics 02/19/1701/25 Kassi Vidales MD Pediatric Gastroenterology [address] [place] [address] documented as of this encounter
--- OUTSIDE RECORDS SUMMARY | 2022-04-03 01:52 | XMS_ITS | Encounter Summary ---
:2001 Author Organization [place] Address [address] [facility] [place] [address] Care Team Providers Name Role Phone Maribel Limon MD Primary Care Provider [phone] Kassi Vidales MD Unavailable [phone] Reason for Visit Reason Comments Abdominal Pain intermittent lower abd pain that happens every day, with bloating, c nausea and diarrhea/constipa tion X 2 months, seen at PCP and referred to pedicatric GI, appt is in decemeber, no tests have been run yet. also c/o overall exhausion, falling asleep in class and going to bed at 8p. per mom pt had a sync opal episdoe around 1815 tonight Encounter Details Date Type Department Care Team Description 03/04/2017 Emergency [facility] Laura Aguero, Abd ominal pain, generalized; Isaac Emergency Hypersomnolence Dept [facility] [address] [place] [address] [place] [address] [place] [address] (Wo rk) Social History Tobacco Use Types Packs/Day Years Used Date Smoking Tobacco: Never Assessed Financial Resource Strain Answer Date [...] place to sleep or slept in a senior care (including now)? Sex Assigned at Date Recorded [...] 03/04/2017 6:56 PM CD T Growth Chart: [facility] (Girls, 2-20 Years) documented in this encounter Discharge Instructions Discharge Laura Orozco MD - 03/04/2017 8:58 PM CDT Images [...] healthcare provider before giving your child any kpxx-bqo-ebpsamf medicines. Preventing abdominal pain If your child [...] child is at least 4 years old. under 3 months old: ?? Ask your [...] older. ?? Date Last Reviewed: 11/05/2015 ?? [phone] [employer]. [address] [place] [address]. All rights reserved. This information is not [...] Department Course ECG (19:12:18): Rate 65 bpm. [place] interval 166. QRS duration 72. QT/QTc 384/399. [...] TSH with free T4 reflex 2.53 Interventions: 1956: NS 1L IV [facility] Emergency [facility] Course: [...] reflex to Microscopic (03/04/2017 7:53 PM CDT) [facility] Method Time Signature Color Urine Light Yellow 03/04/2017 [facility] 8:[address] [facility] Appearance Urine Clear 03/04/2017 [facility] 8:[address] [facility] Glucose Urine Negative NEG^Negat 03/04/2017 [place] mg/dL 8:12 PM [facility] Bilirubin Urine Negative NEG^Negat 03/04/2017 [facility] [place] 8:12 PM [facility] Ketones Urine Negative NEG^Negat 03/04/2017 [facility] [place] mg/dL 8:12 PM [facility] Specific [place] 1.003 1.003 - 03/04/2017 [place] Urine 1.035 8:12 PM [facility] Blood Urine Large (A) NEG^Negat 03/04/2017 [facility] [place] 8:12 PM [facility] pH Urine 7.0 5.0 - 7.0 03/04/2017 [facility] pH 8:12 PM [facility] Protein Albumin Negative NEG^Negat 03/04/2017 [place] Urine [place] mg/dL 8:12 PM [facility] Urobilinogen Normal 0.0 - 2.0 03/04/2017 [place] mg/dL mg/dL 8:12 PM [facility] Nitrite Urine Negative NEG^Negat 03/04/2017 [facility] [place] 8:12 PM [facility] Leukocyte Negative NEG^Negat 03/04/2017 [facility] Esterase Urine [place] 8:12 PM [facility] Source Midstream 03/04/2017 [place] Urine 8:04 PM [facility] RBC Urine 36 (H) 0 - 2 03/04/2017 [facility] /HPF 8:12 PM [facility] WBC Urine 1 0 - 2 03/04/2017 [facility] /HPF 8:12 PM [facility] Squamous <1 0 - 1 03/04/2017 [place] Epithelial /HPF /HPF 8:12 PM [facility] Mucous Urine Present (A) NEG^Negat 03/04/2017 [facility] [place] /LPF 8:12 PM [facility] Specimen (Source) Anatomical Collection Method Collection Time Re ceived Time Location / / Volume Laterality Examination of URINE SPECIMEN 03/04/2017 7:53 03/04/20 17 8:03 midstream urine OBTAINED BY CLEAN PM [facility] specimen CATCH PROCEDURE / (procedure) Unknown Laura Aguero MD LAB - URINE ORDERABLES Performing Organization Address City/State/ZIP Code [facility] e Number [facility] [address] [place] [address] [facility] [address] [place] [address], [place] [phone] HCG qualitative urine (03/04/2017 7:53 PM CDT) athologist Signature HCG Qual Urine Negative NEG^Negati 03/04/2017 [place] ve 8:[address] [facility] Comment: This test is for screening purposes. ??R esults should be interpreted along with the clinical picture. ??Confirmation te sting is available if warranted by ordering [id number], HCG Quantitative Pregna ncy. Specimen Anatomical Collection Method Collection Time Receive d Time (Source) Location / / Volume Laterality Urine specimen URINE SPECIMEN 03/04/2017 7:53 PM 03/04 8:03 (specimen) OBTAINED BY CLEAN CDT PM CDT CATCH PROCEDURE / Unknown Laura Aguero MD LAB - URINE ORDERABLES Performing Organization Address City/[facility]/ZIP Code Phon e Number [facility] [address] [place] [address] [facility] [address] [place] [address], [place] [phone] EKG 12-lead, tracing only (03/04/2017 7:12 PM CDT) [facility] gist Method Time Signature Interpretation ECG [...] Signature TSH 2.53 0.40 - 4.00 03/04/2017 [place] mU/L 8:[address] [facility] Specimen Anatomical Collection Method Collection Time Receive d Time (Source) Location / / Volume Laterality Blood specimen 03/04/2017 2:52 PM 10/29/2 017 8:01 (specimen) CDT PM CDT Laura Aguero MD LAB - BLOOD ORDERABLES Performing Organization Address City/State/ZIP Code Phon e Number [facility] [address] [place] [address] [facility] [address] [place] [address], [place] [phone] Mononucleosis screen (03/04/2017 2:52 PM CDT) [facility] Method Time Signature Mononucleosis Negative NEG^Negat 03/04/2017 [place] Screen [place] 8:[address] [facility] Specimen Anatomical Collection Method Collection Time Receive d Time (Source) Location / / Volume Laterality Blood specimen 03/04/2017 2:52 PM 017 8:01 (specimen) CDT PM CDT Laura Aguero MD LAB - BLOOD ORDERABLES Performing Organization Address City/State/ZIP Code Phon e Number [facility] [address] [place] [address] [facility] [address] [place] [address], [place] [phone] Comprehensive metabolic panel (03/04/2017 2:52 PM CDT) [facility] Method Time Signature Sodium 139 133 - 143 03/04/2017 [place] mmol/L 8:[address] [facility] Potassium 3.6 3.4 - 5.3 03/04/2017 [place] mmol/L 8:[address] [facility] Chloride 104 96 - 110 03/04/2017 [place] mmol/L 8:[address] [facility] Carbon Dioxide 29 20 - 32 03/04/2017 [place] mmol/L 8:[address] [facility] Anion Gap 6 3 - 14 03/04/2017 [place] mmol/L 8:[address] [facility] Glucose 82 70 - 99 03/04/2017 [facility] mg/dL 8:[address] [facility] Urea Nitrogen 9 7 - 19 03/04/2017 [place] mg/dL 8:23 PM [facility] Creatinine 0.87 0.50 - 03/04/2017 [place] 1.00 8:23 PM [facility] mg/dL HOSPITAL GFR Estimate GFR not mL/min/1. 03/04/2017 [place] calculated, 7m2 8:23 PM [facility] patient <16 HOSPITAL years old. Comment: Non GFR Calc GFR Estimate If GFR not calculated, mL/min/1.7m2 03/04/2017 8:23 [place] Black patient <16 years PM T [facility] old. HOSPITAL Comment: GFR Calc Calcium 9.5 9.1 - 10.3 mg/dL 03/04/2017 8:23 PM [facility] Bilirubin Total 0.2 0.2 - 1.3 mg/dL 03/04/2017 8:27 PM [facility] Albumin 3.8 3.4 - 5.0 g/dL 03/04/2017 8:23 PM [facility] Protein Total 7.3 6.8 - 8.8 g/dL 03/04/2017 8:27 PM [facility] Alkaline Phosphatase 83 70 - 230 U/L 03/04/2017 8:27 PM [facility] ALT 17 0 - 50 U/L 03/04/2017 8:23 PM [facility] AST 13 0 - 35 U/L 03/04/2017 8:23 PM [facility] Specimen Anatomical Collection Method Collection Time Receive d Time (Source) Location / / Volume Laterality Blood specimen 03/04/2017 2:52 PM 017 8:01 (specimen) CDT PM CDT Laura Aguero MD LAB - BLOOD ORDERABLES Performing Organization Address City/State/ZIP Code Phon e Number [facility] [address] [place] [address] [facility] [address] [place] [address], U [phone] CBC with platelets differential (03/04/2017 2:52 PM CDT) Patholo gist Method Time Signature WBC 5.3 4.0 - 03/04/2017 [facility] 11.0 8:07 PM [facility] 10e9/L [facility] RBC Count 4.47 3.7 - 5.3 03/04/2017 [facility] 10e12/L 8:07 PM [facility] Hemoglobin 14.6 11.7 - 03/04/2017 [facility] 15.7 g/dL 8:07 PM [facility] Hematocrit 41.4 35.0 - 03/04/2017 [facility] 47.0 % 8:07 PM [facility] MCV 93 77 - 100 03/04/2017 [facility] fl 8:07 PM [facility] MCH 32.7 26.5 - 03/04/2017 [facility] 33.0 pg 8:07 PM [facility] MCHC 35.3 31.5 - 03/04/2017 [facility] 36.5 g/dL 8:07 PM [facility] RDW 12.9 10.0 - 03/04/2017 [facility] 15.0 % 8:07 PM [facility] Platelet Count 231 150 - 450 03/04/2017 [facility] 10e9/L 8:07 PM [facility] Diff Method Automated 03/04/2017 [facility] Method 8:07 PM [facility] % Neutrophils 39.7 % 03/04/2017 [facility] 8:07 PM [facility] % Lymphocytes 47.6 % 03/04/2017 [facility] 8:07 PM [facility] % Monocytes 8.4 % 03/04/2017 [facility] 8:07 PM [facility] % Eosinophils 3.0 % 03/04/2017 [facility] 8:07 PM [facility] % Basophils 1.1 % 03/04/2017 [facility] 8:07 PM [facility] % Immature 0.2 % 03/04/2017 [facility] Granulocytes 8:07 PM [facility] Nucleated RBCs 0 0 /100 03/04/2017 [facility] 8:07 PM [facility] Absolute 2.1 1.3 - 7.0 03/04/2017 [facility] Neutrophil 10e9/L 8:07 PM [facility] Absolute 2.5 1.0 - 5.8 03/04/2017 [place] Lymphocytes 10e9/L 8:[address] [facility] Absolute 0.4 0.0 - 1.3 03/04/2017 [place] Monocytes 10e9/L 8:[address] [facility] Absolute 0.2 0.0 - 0.7 03/04/2017 [place] Eosinophils 10e9/L 8:[address] [facility] Absolute 0.1 0.0 - 0.2 03/04/2017 [place] Basophils 10e9/L 8:[address] [facility] Abs Immature 0.0 0 - 0.4 03/04/2017 [place] Granulocytes 10e9/L 8:[address] [facility] Absolute 0.0 03/04/2017 [place] Nucleated RBC 8:[address] [facility] Specimen Anatomical Collection Method Collection Time Receive d Time (Source) Location / / Volume Laterality Blood specimen 03/04/2017 2:52 PM 017 8:01 (specimen) CDT PM CDT Laura Aguero MD LAB - BLOOD ORDERABLES Performing Organization Address City/State/ZIP Code Phon e Number [facility] [address] [place] [address] [phone] [facility] [address] [place] [address], [facility] [phone] documented in this encounter Visit Diagnoses Diagnosis [...] Anderson Coelho, RN)2103 (Stopped - Provider: David Dugan, MICHELLE) Intravenous, 1,000 mL, ONCE, at 1,000 mL [...] 2351 documented in this encounter Care Teams Cotton Feeder Relationship Specialty Start Date End Date Maribel Limon, PCP - General Pediatrics 02/19/1701/25 Kassi Vidales MD Pediatric Gastroenterology [facility] [place] [address] documented as of this encounter
--- OUTSIDE RECORDS SUMMARY | 2022-04-03 01:52 | XMS_ITS | Encounter Summary ---
:2001 Author Organization [facility] Address [address] [address] Care Team Providers Name Role Phone Unavailable Primary Care Provider Unavailable Reason for Visit Procedure/Equipment (Routine) - Incomplete Specialty Diagnoses / Procedures Referred By Contact Refer red To Contact Diagnoses Pain in estrella, unspecified laterality De Ball MD Procedures XR Tibia Fibula Lt 2 Views [address] [facility] [place], [place] [address] Referral ID Status Reason Start Date Expiration Date Visits V isits Requested Authorized [id number] Incomplete 12/04/2018 03/04/2020 1 1 Encounter Details Date Type Department Care Team Description 12/04/2018 [facility]illary [facility] De Ball, Pain in estrella, Procedure [address] [facility] [address] [facility] [place] [address] [phone] Social History Tobacco Use Types Packs/Day Years [...] FINDINGS: ??Right tib-fib 2 views. No ac lime bony abnormalities. Joint spaces are intact Procedure [...] Visualize d joint spaces are intact. De MONTGOM[place] GD documented in this encounter Visit Diagnoses Diagnosis Pain in estrella, unspecified laterality documented in this encounter
[2022-04-03 02:00] VITALS: BP 102/60; BP 110/57; PULSE 79; PULSE 86; RESP 18; TEMP 36.5; TEMP 36.7; O2SAT 97
== END 2022-04-03 02:00 | disposition home or self-care (01) ==
LOC: ED 04-03 01:50
PROVIDERS: Emergency Provider Family Medicine; PCP Student in an Organized Health Care Education/Training Program
DX: L02.31 Cutaneous abscess of buttock (principal)
CPT/HCPCS: 10060; 99283

== ENCOUNTER 2022-07-18 12:15 | Outpatient (CLI) | payer BC, SELFPAY | END 2022-07-18 12:16 | disposition home or self-care (01) | LOC: NFLDREF 12:17 | PROVIDERS: PCP Student in an Organized Health Care Education/Training Program; Visit Provider Obstetrics & Gynecology | DX: N83.201 Unspecified ovarian cyst, right side (principal) | CPT/HCPCS: 87086 ==

== ENCOUNTER 2022-07-19 07:04 | Outpatient (CLI) | payer BC, SELFPAY ==
--- NOTE | 2022-07-19 07:15 | CRLHL7_ITS ---
For Patients: As a result of the Century Cures Act, medical imaging exams and procedure reports are released immediately into your electronic medical record. You may view this report before your referring provider. If you have questions, please contact your health care provider. CLINICAL HISTORY: Ovarian cyst Comparison: 07/03/2021 TECHNIQUE: 2D donis scale and color Doppler images were acquired of the pelvis using a transvaginal approach. FINDINGS: On transvaginal imaging, the myometrium has a normal uniform echotexture. The uterus measures 5.2 x 1.5 x 2.5 cm. The endometrial lining measures 1 mm in thickness. The left ovary measures 2.8 x 1.6 x 2.0 cm in size and the right ovary measures 3.2 x 1.8 x 1.8 cm. The ovaries demonstrate normal arterial and venous blood flow on color Doppler analysis. There are no suspicious fluid collections within the cul-de-sac. Simple cyst/dominant follicle right ovary measuring 2 cm. IMPRESSION: Simple cyst/dominant follicle right ovary measuring 2 cm. Dictated by Antolin Chen MD @ 07/19/2022 12:17:45 PM (Electronically Signed)
== END 2022-07-19 07:05 | disposition home or self-care (01) ==
PROVIDERS: PCP Student in an Organized Health Care Education/Training Program; Visit Provider Obstetrics & Gynecology
DX: R10.2 Pelvic and perineal pain (principal); N83.201 Unspecified ovarian cyst, right side
CPT/HCPCS: 76830

== ENCOUNTER 2022-07-25 15:46 | Emergency (ER) | payer BC, SELFPAY ==
[2022-07-25 15:57] VITALS: BP 133/78; PULSE 126; RESP 16; TEMP 36.9; O2SAT 96; BMI 20.5
[2022-07-25 17:32] VITALS: BP 119/79; PULSE 101; RESP 20; O2SAT 100
--- NOTE | 2022-07-25 17:35 | ED.GENADULT ---
HPI - General Adult General Time Seen by Provider: 17:35 <Sotero Reis MD - Last Filed: 08/21/22 12:17> Date Seen: 07/25/22 <Sotero Reis MD - Last Filed: 08/21/22 12:17> Chief complaint: Unspecified Complaint, Adult <Sotero Reis MD - Last Filed: 08/21/22 12:17> Stated complaint: Neck/r shoulder/abdominal pain, tingling <Sotero Reis MD - Last Filed: 08/21/22 12:17> Time Seen by Provider: 07/25/22 17:24 <Sotero Reis MD - Last Filed: 08/21/22 12:17> Source: patient <Sotero Reis MD - Last Filed: 08/21/22 12:17> Mode of arrival: ambulatory <Sotero Reis MD - Last Filed: 08/21/22 12:17> Limitations: no limitations <Sotero Reis MD - Last Filed: 08/21/22 12:17> History of Present Illness HPI narrative: Temi is a 21 year old female past medical history includes ADHD, depression anxiety, presents emerged department via private car with neck and right shoulder pain with arm tingling. <Sotero Reis MD - Last Filed: 08/21/22 12:17> Temi is a 21 year old female past medical history includes ADHD, depression anxiety, presents emerged department via private car with neck and right shoulder pain with arm tingling. Describes the pain on off for the last few months, comes on at any specific time not related to movement, no real history of any falls or injury, she describes numbness over her entire right arm, which is her dominant hand, hurts more when she extends her neck as opposed to flex it, has not seen a provider for this. She also notes that she has had discharge from her breast, an of vaginal discharge, she has recently seen Gynecology, Dr. Joseph, she called her primary care doctor today, her gynecologic doctor, and they both director the emergency room. She has Nexplanon, in her left arm, and says she is not , has taken a number tests over the last 2 weeks. She denies any STD symptoms, dysuria frequency of urination. She does have a history of anxiety and depression but feels these are both woke taking care of. <Terrence Connelly MD - Last Filed: 07/29/22 13:59> Related Data Home medications: Home Medications Medication Instructions Recorded Confirmed fluoxetine 40 mg capsule 40 mg PO DAILY 01/28/22 07/18/22 lisdexamfetamine 40 mg capsule 40 mg PO DAILY 01/28/22 04/03/22 (Vyvanse) dextroamphetamine-amphetamine ER 25 mg PO DAILY 04/03/22 07/18/22 25 mg 24hr capsule,extend release doxycycline monohydrate 100 mg 100 mg PO BID 04/03/22 04/03/22 tablet clindamycin 1 %-benzoyl peroxide 5 1 applic topical QDAY 07/18/22 07/18/22 % topical gel tretinoin 0.025 % topical cream 1 applic topical QHS 07/18/22 07/18/22 Previous Rx's Medication Instructions Recorded cyclobenzaprine 10 mg tablet 10 mg PO HS PRN muscle spasm #10 07/25/22 tabs prednisone 20 mg tablet 20 mg PO DAILY #5 tabs 07/25/22 <Sotero Reis MD - Last Filed: 08/21/22 12:17> Allergies/adverse reactions: Allergies Allergy/AdvReac Type Severity Reaction Status Date / Time Sulfa (Sulfonamide Allergy Mild Rash Verified 07/25/22 15:57 Antibiotics) <Sotero Reis MD - Last Filed: 08/21/22 12:17> Review of Systems Status of ROS: Reports: 10 or more systems reviewed and unremarkable except as noted in History and below <Terrence Connelly MD - Last Filed: 07/29/22 13:59> [facility] Medical History: Medical History ADHD (attention deficit hyperactivity disorder) Anxiety Depression MRSA (methicillin resistant staph aureus) culture positive <Sotero Reis MD - Last Filed: 08/21/22 12:17> Surgical History: Surgical History No significant past surgical history <Sotero Reis MD - Last Filed: 08/21/22 12:17> Family History: Family History Other Alcohol dependence Breast cancer Chronic mental illness Heart disease Liver disease Ovarian cancer <Sotero Reis MD - Last Filed: 08/21/22 12:17> Social History: Social History Narrative: She is a gem student at [employer] She does not exercise regularly She does not smoke She drinks alcohol on the weekends at college She does not use recreational drugs Smoking Status: Never smoker Do you use any of these nicotine containing products: None Second hand tobacco smoke exposure: No How often do you have a drink containing alcohol: never How many standard drinks containing alcohol do you have on a typical day: 7 to 9 How often do you have six or more drinks on one occasion: Never AUDIT-C Alcohol total score: 3 Non-prescribed substance use: denies use service: No <Sotero Reis MD - Last Filed: 08/21/22 12:17> Exam Narrative: Exam Narrative: Patient is seen in room 1, she appears very anxious, describing her symptoms. Her neck shows range of motion from 6 cm to 21 cm, right-sided than left-sided flexion is approximately 30?, rotation to the left, reproduces pain along the right side of her neck, and into her shoulder. She is able to come to 65? to the left, and 75 to the right. Machine Ii Trimmer strength bilaterally are normal, finger abduction is normal, 1st finger thumb opposition normal, wrist dorsiflexion palmar flexion biceps triceps power, shoulder abduction are all graded 5/5 power bilaterally pulses are normal, with absence of edema, she has normal muscle bulk bilaterally, when I ask her, she is able to localize her altered sensation it is not numbness more over the Valerio aspect of her thenar eminence. 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 If she is worried about cellulitis or an abscess I can help her with that, but she tells me she has had that in the past and is not worried about that. <Terrence Connelly MD - Last Filed: 07/29/22 13:59> Const: Vital Signs, click to edit/add: Vital Signs - 24 hr 07/25/22 15:57 07/25/22 17:32 Temperature 98.4 F Pulse Rate [Pulse Oximeter] 126 H 101 H Respiratory Rate 16 20 Blood Pressure [Ri ght Upper Arm] 133/78 119/79 Pulse Oximetry 96 100 Oxygen Delivery Me thod Room Air Room Air <Sotero Reis MD - Last Filed: 08/21/22 12:17> Vital Signs, click to edit/add: Vital Signs - 24 hr 07/25/22 15:57 07/25/22 17:32 Temperature 98.4 F Pulse Rate [Pulse Oximeter] 126 H 101 H Respiratory Rate 16 20 Blood Pressure [Ri ght Upper Arm] 133/78 119/79 Pulse Oximetry 96 100 Oxygen Delivery Me thod Room Air Room Air <Terrence Connelly MD - Last Filed: 07/29/22 13:59> Vital Signs, click to edit/add: Vital Signs - 24 hr 07/25/22 15:57 07/25/22 17:32 Temperature 98.4 F Pulse Rate [Pulse Oximeter] 126 H 101 H Respiratory Rate 16 20 Blood Pressure [Ri ght Upper Arm] 133/78 119/79 Pulse Oximetry 96 100 Oxygen Delivery Me thod Room Air Room Air <Olga Holman MD - Last Filed: 07/25/22 19:38> Documenting provider has reviewed patient's vital signs: yes <Terrence Connelly MD - Last Filed: 07/29/22 13:59> Course Reevaluation(s) Reevaluation #1: Reviewed with patient her CT findings. We reviewed the difference between imaging of CT and MRI in the reason MRIs are not routinely done acutely in the ER. She has no motor components. Her neck has been bothering her intermittently. She is getting a tingling sensation in her arm. We reviewed that it is a feeling like when your arm has fallen asleep when you have slept on it wrong. We did discuss what can happen with disc issues in the neck. At this point I would recommend conservative management. There is nothing clinically that she requires an emergent MRI for. We discussed using muscle relaxant at bedtime is it is bothering her to sleep right now. Will try low-dose prednisone 20 mg daily for 5 days in give her a physical therapy referral. She and I spent some time discussing her chronic issues with the chronic abdominal issues, chronic throat issues. As far as the breast discharge, just noted it today and it is milky. There is no symptoms of mastitis. I support Dr. Connelly's view that many of her clinical issues really need clinic management and ongoing longitudinal follow-up. The breast discharge certainly needs to be followed up. She could go back to OB Gyne or her primary. This may in compass labs and possibly even imaging, none of which we would do emergently in the ED for milky breast discharge from her right breast. <Olga Holman MD - Last Filed: 07/25/22 19:38> Time: 19:29 <Olga Holman MD - Last Filed: 07/25/22 19:38> Reevaluation #2: Originally signed up for this patient but did not see her, patient was seen by Dr. Pickett, please see his note for HPI, PE and disposition and plan. Dr. Chato CARRERA <Sotero Reis MD - Last Filed: 08/21/22 12:17> Vital Signs Vital signs: Initial Vital Signs Temperature 98.4 F 07/25/22 15:57 Temperature Source Temporal Artery Scan 07/25/22 15:57 Pulse Rate 126 H 07/25/22 15:57 Pulse Rhythm Regular 07/25/22 15:57 Pulse Strength 3+ Normal 07/25/22 15:57 Respiratory Rate 16 07/25/22 15:57 Blood Pressure 133/78 07/25/22 15:57 Blood Pressure Mean 96 07/25/22 15:57 Blood Pressure Position Sitting 07/25/22 15:57 Pulse Oximetry 96 07/25/22 15:57 Oxygen Delivery Method Room Air 07/25/22 15:57 Vital Signs Temperature 98.4 F 07/25/22 15:57 Pulse Rate 126 H 07/25/22 15:57 Respiratory Rate 16 07/25/22 15:57 Blood Pressure 133/78 07/25/22 15:57 Pulse Oximetry 96 07/25/22 15:57 Oxygen Delivery Method Room Air 07/25/22 15:57 Temperature 98.4 F 07/25/22 15:57 Pulse Rate 101 H 07/25/22 17:32 Respiratory Rate 20 07/25/22 17:32 Blood Pressure 119/79 07/25/22 17:32 Pulse Oximetry 100 07/25/22 17:32 Oxygen Delivery Method Room Air 07/25/22 17:32 <Sotero Reis MD - Last Filed: 08/21/22 12:17> Initial Vital Signs Temperature 98.4 F 07/25/22 15:57 Temperature Source Temporal Artery Scan 07/25/22 15:57 Pulse Rate 126 H 07/25/22 15:57 Pulse Rhythm Regular 07/25/22 15:57 Pulse Strength 3+ Normal 07/25/22 15:57 Respiratory Rate 16 07/25/22 15:57 Blood Pressure 133/78 07/25/22 15:57 Blood Pressure Mean 96 07/25/22 15:57 Blood Pressure Position Sitting 07/25/22 15:57 Pulse Oximetry 96 07/25/22 15:57 Oxygen Delivery Method Room Air 07/25/22 15:57 Vital Signs Temperature 98.4 F 07/25/22 15:57 Pulse Rate 126 H 07/25/22 15:57 Respiratory Rate 16 07/25/22 15:57 Blood Pressure 133/78 07/25/22 15:57 Pulse Oximetry 96 07/25/22 15:57 Oxygen Delivery Method Room Air 07/25/22 15:57 Temperature 98.4 F 07/25/22 15:57 Pulse Rate 101 H 07/25/22 17:32 Respiratory Rate 20 07/25/22 17:32 Blood Pressure 119/79 07/25/22 17:32 Pulse Oximetry 100 07/25/22 17:32 Oxygen Delivery Method Room Air 07/25/22 17:32 <Terrence Connelly MD - Last Filed: 07/29/22 13:59> Initial Vital Signs Temperature 98.4 F 07/25/22 15:57 Temperature Source Temporal Artery Scan 07/25/22 15:57 Pulse Rate 126 H 07/25/22 15:57 Pulse Rhythm Regular 07/25/22 15:57 Pulse Strength 3+ Normal 07/25/22 15:57 Respiratory Rate 16 07/25/22 15:57 Blood Pressure 133/78 07/25/22 15:57 Blood Pressure Mean 96 07/25/22 15:57 Blood Pressure Position Sitting 07/25/22 15:57 Pulse Oximetry 96 07/25/22 15:57 Oxygen Delivery Method Room Air 07/25/22 15:57 Vital Signs Temperature 98.4 F 07/25/22 15:57 Pulse Rate 126 H 07/25/22 15:57 Respiratory Rate 16 07/25/22 15:57 Blood Pressure 133/78 07/25/22 15:57 Pulse Oximetry 96 07/25/22 15:57 Oxygen Delivery Method Room Air 07/25/22 15:57 Temperature 98.4 F 07/25/22 15:57 Pulse Rate 101 H 07/25/22 17:32 Respiratory Rate 20 07/25/22 17:32 Blood Pressure 119/79 07/25/22 17:32 Pulse Oximetry 100 07/25/22 17:32 Oxygen Delivery Method Room Air 07/25/22 17:32 <Olga Holman MD - Last Filed: 07/25/22 19:38> Medical Decision Making MDM Narrative Medical decision making narrative: I discussed with the patient, IV worried about a primary cervical spine issue causing her discomfort, as more than the arm issues. This could be musculoskeletal in nature, but more likely cause would be a discogenic issue, we do of ability to do a CT here, but not MRI here today. I am reassured by her examination here today, but her test is negative I offered to do a CT, we will give her some Tylenol ibuprofen, go forward this. Some of the issue is a history of anxiety, depression but there is some truly other gynecologic issues that she can follow-up with. <Terrence Connelly MD - Last Filed: 07/29/22 13:59> Lab Data Labs: Lab Results 07/25/22 Range/Units 17:55 HCG, Qual Negative (Negative) Urine Color Yellow (Yellow) Urine Appearance Cloudy A (Clear) Urine pH 8.5 (5.0-8.5) Ur Specific [place] 1.020 (1.000-1.030) Urine Protein Negative (Negative) Urine Glucose (UA) Negative (Negative) Urine Ketones Negative (Negative) Urine Blood Negative (Negative) Urine Nitrite Negative (Negative) Urine Bilirubin Negative (Negative) Urine Urobilinogen 0.2 (0.2-1.0) Ur Leukocyte Esterase Negative (Negative) Urine RBC 0-2 (0-2) Urine WBC 0-2 (0-5) Ur Squamous Epith Cells Few (None-Few) Amorphous Sediment Moderate A (None) Urine Bacteria None (None) <Sotero Reis MD - Last Filed: 08/21/22 12:17> Lab Results 07/25/22 Range/Units 17:55 HCG, Qual Negative (Negative) Urine Color Yellow (Yellow) Urine Appearance Cloudy A (Clear) Urine pH 8.5 (5.0-8.5) Ur Specific [place] 1.020 (1.000-1.030) Urine Protein Negative (Negative) Urine Glucose (UA) Negative (Negative) Urine Ketones Negative (Negative) Urine Blood Negative (Negative) Urine Nitrite Negative (Negative) Urine Bilirubin Negative (Negative) Urine Urobilinogen 0.2 (0.2-1.0) Ur Leukocyte Esterase Negative (Negative) Urine RBC 0-2 (0-2) Urine WBC 0-2 (0-5) Ur Squamous Epith Cells Few (None-Few) Amorphous Sediment Moderate A (None) Urine Bacteria None (None) <Terrence Connelly MD - Last Filed: 07/29/22 13:59> Lab Results 07/25/22 Range/Units 17:55 HCG, Qual Negative (Negative) Urine Color Yellow (Yellow) Urine Appearance Cloudy A (Clear) Urine pH 8.5 (5.0-8.5) Ur Specific [place] 1.020 (1.000-1.030) Urine Protein Negative (Negative) Urine Glucose (UA) Negative (Negative) Urine Ketones Negative (Negative) Urine Blood Negative (Negative) Urine Nitrite Negative (Negative) Urine Bilirubin Negative (Negative) Urine Urobilinogen 0.2 (0.2-1.0) Ur Leukocyte Esterase Negative (Negative) Urine RBC 0-2 (0-2) Urine WBC 0-2 (0-5) Ur Squamous Epith Cells Few (None-Few) Amorphous Sediment Moderate A (None) Urine Bacteria None (None) <Olga Holman MD - Last Filed: 07/25/22 19:38> Imaging Data CT- Other: Attestation: I have reviewed the pertinent imaging results. <Olga Holman MD - Last Filed: 07/25/22 19:38> Radiologist's impression: No acute findings, loss of cervical lordosis. <Olga Holman MD - Last Filed: 07/25/22 19:38> Critical Care Time Critical Care Time Critical Care Time: No <Olga Holman MD - Last Filed: 07/25/22 19:38> Discharge Plan Discharge Clinical Impression: Cervical radiculopathy <Sotero Reis MD - Last Filed: 08/21/22 12:17> Patient Disposition: Home, Self-Care <Sotero Reis MD - Last Filed: 08/21/22 12:17> Condition: Stable <Sotero Reis MD - Last Filed: 08/21/22 12:17> Instructions: Cervical Radiculopathy (ED), Neck Pain (ED) <Sotero Reis MD - Last Filed: 08/21/22 12:17> Additional Instructions: Start prednisone and take as prescribed, take with food. Use Tylenol 1000 mg up to 3 times a day baseline for pain. Can supplement with ibuprofen per bottle directions if needed for further pain control. Have written for Flexeril to be used at bedtime to help with sleep, this is a muscle relaxant. You have been given a referral for physical therapy to help with your neck. You absolutely need to follow up in clinic with the primary care provider for your chronic issues as well as follow-up of your neck pain with arm symptoms. <Sotero Reis MD - Last Filed: 08/21/22 12:17> Activity Level: Activity as Tolerated <Sotero Reis MD - Last Filed: 08/21/22 12:17> Activity as Tolerated <Terrence Connelly MD - Last Filed: 07/29/22 13:59> Activity as Tolerated <Olga Holman MD - Last Filed: 07/25/22 19:38> Prescriptions: New prednisone 20 mg tablet 20 mg PO DAILY Qty: 5 0RF cyclobenzaprine 10 mg tablet 10 mg PO HS PRN (Reason: muscle spasm) Qty: 10 0RF No Action tretinoin 0.025 % cream 1 applic topical QHS clindamycin-benzoyl peroxide 1-5 % gel 1 applic topical QDAY fluoxetine 40 mg capsule 40 mg PO DAILY Patient Comments: TAKE 1 CAPSULE BY MOUTH EVERY DAY Vyvanse 40 mg capsule 40 mg PO DAILY Patient Comments: TAKE 1 CAPSULE BY MOUTH EVERY DAY dextroamphetamine-amphetamine 25 mg capsule,extended release 24hr 25 mg PO DAILY Patient Comments: TAKE 1 CAPSULE BY MOUTH EVERY DAY IN THE MORNING doxycycline monohydrate 100 mg tablet 100 mg PO BID Patient Comments: TAKE 1 TABLET BY MOUTH TWICE DAILY FOR 7 DAYS <Sotero Reis MD - Last Filed: 08/21/22 12:17> Follow Up/Referrals: Aylin Oswald PA-C [Primary Care Provider] - <Sotero Reis MD - Last Filed: 08/21/22 12:17> Stand Alone Forms: MyHealth Info Instructions <Sotero Reis MD - Last Filed: 08/21/22 12:17>
[2022-07-25 18:07] LABS: Appearance Urine Cloudy (Clear); Bilirubin Urine Negative (Negative); Blood Urine Negative (Negative); Color Urine Yellow (Yellow); Glucose Urine Negative (Negative); Ketones Urine Negative (Negative); Leukocyte Esterase Urine Negative (Negative); Nitrite Urine Negative (Negative); Protein Urine Negative (Negative); Urobilinogen Urine 0.2 (0.2-1.0); pH Urine 8.5 (5.0-8.5)
[2022-07-25 18:10] LABS: HCG Qualitative* Negative (Negative)
--- NOTE | 2022-07-25 18:15 | CRLHL7_ITS ---
For Patients: As a result of the Century Cures Act, medical imaging exams and procedure reports are released immediately into your electronic medical record. You may view this report before your referring provider. If you have questions, please contact your health care provider. Indication: Pain. Technique: CT of the cervical spine performed without IV contrast. Comparison: None available. Findings: The cervical vertebral body heights appear maintained without evidence of fracture. Disc space heights appear preserved. Slight reversal to the cervical lordosis. No overt evidence for spinal canal or neural foraminal compromise throughout the cervical spine. The visualized lung apices are clear. Neck soft tissues appear grossly intact Impression: 1. No acute fracture or traumatic subluxation involving the cervical spine. 2. Slight reversal to the cervical lordosis. Please note that all CT scans at this facility use dose modulation, iterative reconstruction, and/or weight-based dosing when appropriate to reduce radiation dose to as low as reasonably achievable. Dictated by Devang Fischer MD @ 07/25/2022 7:08:32 PM (Electronically Signed)
[2022-07-25 18:21] LABS: Amorphous Sediment Urine Moderate; RBC Urine 0-2 (0-2); Squamous Epithelial Cell Urine Few (None-Few); WBC Urine 0-2 (0-5)
[2022-07-25] MEDS: IBUPROFEN 200 MG TABLET 600 MG PO (18:54)
[2022-07-25] MEDS: ACETAMINOPHEN 500 MG TABLET 1000 MG PO (18:55)
== END 2022-07-25 19:45 | disposition home or self-care (01) ==
PROVIDERS: Family Medicine; Emergency Provider Family Medicine; PCP Student in an Organized Health Care Education/Training Program
DX: M54.12 Radiculopathy, cervical region (principal)
CPT/HCPCS: 72125; 81001; 84703; 99284; A9270

== ENCOUNTER 2022-07-26 13:00 | Outpatient (CLI) | payer BC, SELFPAY ==
--- OUTSIDE RECORDS SUMMARY | 2022-07-29 05:20 | XMS_ITS | Continuity of Care Document ---
Author Name Unknown Organization [facility] Address [address] [address] [place] [address] Care Team Providers Care Biologics Specialist Name Role Phone [place], [place] Unavailable Unav ailable Procedures Procedure Date Ugi En Advance Directives Directive Yes / No Effective Date File Name No Information Encounters Encounter Description Practice Location Reason(s) For Visit Diagnoses Date Provider Providers Copied on Encounter [facility], [address] [address], [place], [place], [id number], [facility] No Information [facility]. [address] [address], [place], [place], [id number], . tel:[phone] Referring Provider: Cesilia Crocker MD, [address] [address], [place], [address] . tel:[phone] Family History Family Member Type Diagnosis Age At Onset No Information Payers Payer name Insurance type Covered libertarian ID Authoriza tion(s) [facility] [id number] Social History Type Description Quantity Date Captured Comments Sex Female Smoking Status No Information Chief Complaint And Reason For Visit No Information Reason For Referral Reason For Referral No Information Plan Of Treatment Date Type Action Status No Information History Of Present Illness Encounter Date Complaint History Of Prese nt Illness No Information Functional Status Date Functional Assessmen t No Information Instructions Date Instruction Additional Infor mation No Information Assessments Type Assessment Date No Information Patient Care Teams Name Effective Dates (start - stop) Status Members No Information
--- OUTSIDE RECORDS SUMMARY | 2022-07-29 05:20 | XMS_ITS | Continuity of Care Document ---
Author Name Unknown Organization [facility] Address [address] [address] [place] [address] Phone Care Team Providers Care Registered Radiographer Name Role Phone Link Bob CARRERA Unavailable Unavailable Allergies, Adverse Reactions, Alerts Substance Reaction Status Criticality No Known Allergies Active No Inform ation Medications Medication Instructions Dosage Effective Dates (start - stop) Status Comments Levsin 0.125 mg tablet take 1 or 2 tablets by mouth every 6 hours as needed for abdominal pain or loose stools. - Active Zoloft 25 mg tablet take 1 tablet by ora l route every day 25 MG - Active Procedures Procedure Date Breath Test Glucose Offic/outpt E&m [facility] Mod-hi 2 19 Routine Serum Collection Bld Ct; Hg/pltlt Ct Auto/compl 19 Sed Rate, Erythrocyte; Auto C-reactive Prot Offic/outpt E&m Estab Low-mod 8 Ugi Endo; W/bx 1/mx Level Iv-surg Path Gross/micro 17 Offic/outpt E&m New Mod-hi Advance Directives Directive Yes / No Effective Date File Name No Information Encounters Encounter Description Practice Location Reason(s) For Visit Diagnoses Date Provider Providers Copied on Encounter [facility], [address] [address], [place], [id number], [place] tel:[phone] [facility] No Information 9 Jeffrey Rojas. [address], [place], [place], [id number], [place]. tel:[phone] [facility], [address] [address], [place], [id number], [place] tel:[phone] [facility] Generalized abdominal pain 9 No Information [facility], [address] [address], [place], [id number], [place] tel:[phone] [facility] Flatulence 9 No Information Offic/outpt E&m Estab Mod-hi 2 [facility], [address] [address], [place], [id number], [place] tel:[phone] [facility] GI Symptoms or Concerns (chief complaint) Abdominal distension (gaseous)Gener alized abdominal painExcessive flatus 9 No Information Referring Provider: Referral Self. Offic/outpt E&m Estab Low-mod [facility], [address] [address], [place], [id number], [place] tel:[phone] [facility] GI Symptoms or Concerns (chief complaint) Irritable bowel syndrome with constipation and diarrhea 8 No Information [facility], [address] [address], [place], [id number], [place] tel:[phone] [facility] Lower abdominal pain, unspecifiedAbd ominal distension (gaseous)Lower abdominal pain, unspecifiedAbd ominal distension (gaseous) 7 Obi Lomas. [address], [place], [place], [id number], [place]. tel:[phone] Referring Provider: Referral Self. Offic/outpt E&m New Mod-hi [facility], [address] [address], [place], [id number], [place] tel:[phone] [facility] GI Symptoms or Concerns (chief complaint) Intermittent lower abdominal painAbdominal bloating 7 No Information Referring Provider: Referral Self. Family History Family Member Type Diagnosis Age At Onset Mother Problem (finding) Alive and well Maternal grandmother Problem (finding) Lupus erythemat osus Sister Problem (finding) Alive and well Father Problem (finding) interstitial nephritis Immunizations Vaccine Date Status Comments Influenza, injectable, quadrivalent, preservative free, 3 yrs or older administered Note: Invalid docum ented admin date was . ; Source: Other Provider Payers Payer name Insurance type Covered constitution party ID Authorlollya [facility]igeovanny([id number] Social History Type Description Quantity Date Captured Comments Sex Female Smoking Status No Information Chief Complaint And Reason For Visit No Information Reason For Referral Reason For Referral No Information Plan Of Treatment Date Type Action Status Referral Ordered: Celiac: DGP IgA/G + TTG +IgA Appointment date/timeframe: 07/10/2018 ordered Referral Ordered: Ultrasound Abdomen Appointment date/timeframe: 06/20/2018 ordered History Of Present Illness Encounter Date Complaint History Of Prese nt Illness GI Symptoms or Concerns Temi degroot is a 17-year-old girl who [facility] accompanied by her mother in followup of abdominal pain, excessive gas, and diarrhea or constipation. She has been followed by Dr. Shi who first saw her in March 2017. An upper GI endoscopy was performed on April 26, 2017, and all biopsies were normal. Part of her workup from March 2017 included a normal CBC, CMP, TSH, and urinalysis except for some moderate blood in the urine, but this was when she was having her menstrual cycle. She continues to have excessive gas and bloating with alternating periods of diarrhea or constipation. Occasionally when she is having lot of diarrhea, there will be blood in the toilet paper. Her pain is generalized in location and she is not clear that it is related to any particular food or drink. It does seem to be more of a problem late in the day or at night, and she will wake up in the morning and not feel like eating breakfast. She does have a lot of GI Symptoms or Concerns Temi degroot is a 17-year-old female who is here for followup for history of chronic intermittent lower abdominal pain and bloating sensation with alternating bowel habits. She was first consulted today by me in March 2017. During that initial office visit, Temi did note that she tried a gluten-free diet and felt that her symptoms improved on this. There are no family members with celiac disease, thyroid disorder, or inflammatory bowel disease. However, she did have maternal grandmother with lupus and father with interstitial nephritis. I therefore scheduled her for diagnostic upper endoscopy and biopsies were completely normal. I recommended for Temi to continue a gluten-free diet anyway to see if this would help her symptoms for possible non-celiac gluten sensitivity. Please note that the biopsies were done after Temi had reintroduced gluten in her diet for weeks. Temi started gluten-free diet and stated that it did help with her symptoms, but she still had chronic intermi GI Symptoms or Concerns Temi degroot is a 16-year-old female referred by Dr. Maribel Limon for intermittent lower abdominal pain and bloating sensation. Temi is accompanied with her mother today. She is otherwise a healthy female who started complaining of intermittent lower abdominal pain and bloating sensation since December 2016. The pain was not associated with any particular illness, travel history, or any life changing events, but started happening rather acutely. She would have intermittent lower abdominal pain on a daily basis that seemed to worsen about an hour or two after eating. She also complained of bloating symptoms that would be worse at night. Before her pain started, she typically stool twice a day and they were [place] type 4. Since the pain started, she stools every few days to four to six times a day and the consistency can be type 1, type 2, or type 4 [place] stools. She has never had any bloody stools. She typically feels better after having a bowel movement. She denies any dysph Functional Status Date Functional Assessmen t No Information Instructions Date Instruction Additional Infor tennille We will make arrange ments for an ultrasound of the abdomen along with CBC with differential, DQ2 and DQ8, fecal occult blood test, sed rate, CRP, and we will make arrangements for breath tests for fructose, glucose and lactose. We will respond appropriately when we get the results of these tests. Related to Abdominal distension (gaseous) I discussed with Gretchen borrero and her mother today about my suspicion that she has IBS alternating type. I would like for her to continue low-FODMAP diet because I feel that this may help partially improve her symptoms. I also recommend using MiraLax as needed on days where she is skipping many days without having a bowel movement. I also suggested her to try IBgard for IBS symptoms. If this is not completely helpful, I have also prescribed Levsin to be used on an as-needed basis to help with IBS symptoms. I hope these measures help Temi and I would like to follow up with her in the office in about 6 months. Related to Irritable bowel syndrome with constipation and diarrhea IBS Related to Irrit able bowel syndrome with constipation and diarrhea Ultimately, I would like to definitively rule out celiac disease. I recommend having her restart a gluten-containing diet by eating one serving of a gluten-containing food once a day until her endoscopy day, which will be scheduled about six weeks from now. In the meantime, she can also try starting a low-FODMAP diet to help with her abdominal bloating. I did discuss with them that if the biopsies were completely normal that we could be dealing with irritable bowel syndrome, small bowel bacterial overgrowth, fructose intolerance. I would like to see her back in the clinic in about four months. Related to Intermittent lower abdominal pain Low FODMAPS diet Related to Inte rmittent lower abdominal pain Irritable Bowel Syndrome Related to Intermittent lower abdominal pain Assessments Type Assessment Date No Information Patient Care Teams Name Effective Dates (start - stop) Status Members No Information
== END 2022-07-26 13:01 | disposition home or self-care (01) ==
LOC: NFLDREF 07-29 05:18
PROVIDERS: PCP Student in an Organized Health Care Education/Training Program; Referring Provider Student in an Organized Health Care Education/Training Program; Visit Provider Obstetrics & Gynecology
DX: N64.52 Nipple discharge (principal)
CPT/HCPCS: 84146

== ENCOUNTER 2022-08-21 08:15 | Outpatient (RCR) | payer BC, SELFPAY | END 2022-11-01 09:35 | disposition home or self-care (01) | PROVIDERS: PCP Student in an Organized Health Care Education/Training Program; Visit Provider Family Medicine | DX: M54.12 Radiculopathy, cervical region (principal); M62.81 Muscle weakness (generalized); M25.60 Stiffness of unspecified joint, not elsewhere classified; Z51.89 Encounter for other specified aftercare | CPT/HCPCS: 97110; 97140; 97161 ==

== ENCOUNTER 2023-08-22 13:48 | Outpatient (CLI) | payer BC, SELFPAY ==
--- OUTSIDE RECORDS SUMMARY | 2023-08-22 13:51 | XMS_ITS ---
Author Name Unknown Organization [facility] Address [address] [place] [address] Care Team Providers Care Asbestos Brake Lining Finisher Helper Name Role Phone Unavailable Unavailable Unavailable Surgery Details Not on file Complications Check Surgery Details section. Procedure Estimated Blood Loss Check Surgery Details section. Procedure Findings Check Surgery Details section. Procedure Specimens Taken Check Surgery Details section.
--- OUTSIDE RECORDS SUMMARY | 2023-08-22 13:51 | XMS_ITS | Referral Summary ---
Author Name Unknown Organization [facility] Address [address] [place] [address] Care Team Providers Care County Coroner Name Role Phone Unavailable Primary Care Provider Unavailabl e Source Comments Patient records contain information from all sites at [facility]. For routine questions regarding patient records, call [phone] during business hours, M-F 8:00 AM - 5:00 PM Central Time. Record requests for emergency care only can be directed to [phone] at any time.[facility] Allergies Active Allergy Reactions Criticality Noted Date Comments Sulfamethoxazole-Trimethop rim Hives (Reselect Reaction),Itching 02/06/2022 Medications Medication Sig Dispensed Refills Start Date End Date Status amphetamine-dext roamphetamine (ADDERALL XR) 25 mg 24 hr capsule 1 capsule in the morning Orally Once a day 30 days 30 capsule 10/24/2022 10/25/2022 Discontinued(E xternal Provider Cancel) Active Problems No known active problems Social History Tobacco Use Types Packs/Day Years Used Date Smoking Tobacco: Never Smokeless Tobacco: Never Tobacco Cessation:Counseling Given: Not Answered Nutrition Answer Date Recorded Nutrition: EVOO Fat Source Unknown 10/24 Nutrition: Servings of Fruits/Vegetables per Day Not on file 10/24/2022 Dental Answer Date Recorded Dental: Regular Dentist Unknown 10/25/19 Sex and Gender Information Value Date Recorded Sex Assigned at Not on file Gender Identity Not on file Sexual Orientation Not on file Last Filed Vital Signs Vital Sign Reading Time Taken Comments Blood Pressure - - Pulse 101 11/19/2022 1:08 PM CDT Temperature 37.1 ??C (98.8 ??F) 11/19/2022 1:08 PM CD T Respiratory Rate - - Oxygen Saturation 99% 11/19/2022 1:08 PM CDT Inhaled Oxygen Concentration - - Weight - - Height - - Body Mass Index - - Plan of Treatment Not on file
--- OUTSIDE RECORDS SUMMARY | 2023-08-22 13:51 | XMS_ITS | Clinical Summary ---
Author Name Unknown Organization [facility] Address [address] [place] [address] Care Team Providers Care Dance Studio Manager Name Role Phone None, Pcp Primary Care Provider Unavailabl e Allergies Active Allergy Reactions Criticality Noted Date Comments Sulfamethoxazole-Trimethoprim Hives,Itching 07/2021 Medications Medication Sig Dispensed Refills Start Date End Date Status amphetamine-dextro amphetamine XR (ADDERALL XR) 25 MG 24 hr capsule TAKE ONE CAPSULE BY MOUTH ONCE DAILY EVERY MORNING* 0 Active clindamycin-benzoy l peroxide (DUAC) 1.2 %(1 % base) -5 % gel APPLY 1 APPLICATION EXTERNALLY EVERY EVENING AFTER WASHING. USE EVERY DAY FOR 30 DAYS 0 05/02/2022 Active FLUoxetine (PROzac) 40 MG capsule Take 1 capsule (40 mg total) by mouth daily 0 01/10/2022 Active Hibiclens 4 % external liquid WASH ENTIRE BODY EXTERNAL ONCE A WEEK FOR 30 DAYS 0 10/06/2022 Active mupirocin (BACTROBAN) 2 % ointment Apply topically 2 times daily 0 10/13/2022 Active tretinoin (RETIN-A) 0.025 % cream APPLY TOPICALLY TO FACE ONCE DAILY IN THE EVENING 0 05/02/2022 Active norgestimate-ethin yl estradiol (Sprintec 28) 0.25-35 MG-MCG per tabletIndications: Breakthrough bleeding on Nexplanon Take 1 tablet by mouth 1 (one) time each day Continuous cycling. Skip sugar pills 84 tablet 3 11/27/2022 11/27/2023 Active Active Problems Problem Noted Date Diagnosed Date Family history of breast cancer in first degree relative 11/21/2022 Overview: Patient's mother, diagnosed at age 42, ERT+ Microscopic hematuria 11/21/2022 Proteinuria 11/21/2022 Overview: Contains abnormal data Dipstick, POCT, Urine [facility] [place] Specimen: Urine Component Ref Range & Units 2 d ago Glucose, POCT, U Negative mg/dL Negative Ketone, POCT, U Negative mg/dL Negative Specific [place], POCT, U 1.005 - 1.030 1.020 Blood, POCT, U Negative Moderate Abnormal pH, POCT, Urine 5.0 - 8.0 8.5 High Protein, POCT, U Negative mg/dL >=300 Abnormal Nitrites, POCT, U Negative Negative Leukocytes, POCT, U Negative Trace Abnormal Resulting Agency [facility] Specimen Collected: 11/19/22 13:18 Last Resulted: 11/19/22 13:20 NOTE: 5.8.23 @[facility] 2+ blood, but NO protein. Breakthrough bleeding on Nexplanon 11/21/2022 Overview: 11/22/22 08:56 CDT INDICATION: BTB on Nexplanon Excessive and frequent menstruation with irregular cycle COMPARISON: None available FINDINGS: ULTRASOUND PELVIS INCLUDING TRANSVAGINAL IMAGING Transvaginal ultrasound was performed to attempt to optimally demonstrate the endometrium and ovaries. The uterus measures 4.7 cm x 3.0 cm x 1.8 cm. No fibroid. Endometrial stripe thickness is within normal limits, measuring 3.8 mm with transvaginal imaging. Cervical pressure applied by the principal technologist to evaluate for sliding sign demonstrated normal sliding of the posterior uterine wall along the anterior rectal wall. This suggests absence of deep endometriosis. Right ovary/adnexa: The right ovary measures 1.9 cm x 3.8 cm x 1.8 cm. Blood flow is demonstrated in the right ovary. Right ovarian volume is 6.80 cc. There is a 1.7 x 1.4 x 1.0 cm simple physiologic appearing follicular cyst in the right ovary. No right extra-ovarian mass. Left ovary/adnexa: The left ovary measures 1.5 cm x 2.5 cm 2.3 cm. Blood flow is demonstrated in the left ovary. Left ovarian volume is 4.52 cc. No left ovarian or extra-ovarian mass. Free pelvic fluid: No. IMPRESSION: There is a 1.7 x 1.4 x 1.0 cm simple physiologic appearing follicular cyst in the right ovary. No fibroid. No extra-ovarian mass. Galactorrhea 11/21/2022 Other constipation 11/21/2022 Resolved Problems Problem Noted Date Diagnosed Date Resolved Date Eating disorder 11/21/2022 11/21/2022 Family History Medical History Relation Comments Cancer Father Bladder cancer Interstitial cystitis Father Kidney disease Father Bipolar disorder Maternal Grandfather Schizophrenia Maternal Grandfather Cancer Maternal Grandmother Mouth cance r Heart failure Maternal Grandmother Lupus Maternal Grandmother Breast cancer Mother Heart attack Paternal Grandmother Hypertension Paternal Grandmother Heart defect Sister Relation Status Comments Father Alive Maternal Grandfather Maternal Grandmother Mother Alive Paternal Grandmother Alive Sister Social History Tobacco Use Types Packs/Day Years Used Date Smoking Tobacco: Never Smokeless Tobacco: Never Tobacco Cessation:Counseling Given: Not Answered Alcohol Use Standard Drinks/Week Comments Yes 0 (1 standard drink = 0.6 oz pur e alcohol) Sex and Gender Information Value Date Recorded Sex Assigned at Not on file Gender Identity Not on file Sexual Orientation Not on file Last Filed Vital Signs Vital Sign Reading Time Taken Comments Blood Pressure 109/66 11/27/2022 2:17 PM CDT Pulse 89 11/27/2022 2:17 PM CDT Temperature - - Respiratory Rate 20 11/27/2022 2:17 PM CDT Oxygen Saturation - - Inhaled Oxygen Concentration - - Weight 57.6 kg (126 lb 14 oz) 11/27/2022 2:17 PM CDT Height 165.1 cm (5' 5) 11/27/2022 2:17 PM CDT Body Mass Index 21.11 11/27/2022 2:17 PM CDT Plan of Treatment Health Maintenance Due Date Last Done Comments Pap Smear 09/11/2025 09/11/2022 DTaP,Tdap,and Td Vaccines (8 - Td or Tdap) 12/20/2032 12/20/2022, 12/25/2012, 08/23/2006, Additional history exists HPV Vaccines Completed 07/15/2013, 08/2012, 12/25/2012 COVID-19 Vaccine Completed 02/14/2023, , 08/15/2020, Additional history exists Influenza Vaccine Completed 02/14/2023, , 04/28/2021, Additional history exists Pneumococcal Vaccine: Pediatrics (0 to 5 Years) and At-Risk Patients (6 to 64 Years) Aged Out No longer eligible based on patient's age to complete this topic Care Teams Dance Studio Manager Relationship Specialty Start Date End Date None, Pcp [address] [place] [address] PCP - General Clinical Informatics Educator 11/20/22
--- OUTSIDE RECORDS SUMMARY | 2023-08-22 13:51 | XMS_ITS | Clinical Summary ---
Author Name Unknown Organization [facility] Address [address] [place] [address] Care Team Providers Care Parts Room Associate Name Role Phone Unavailable Primary Care Provider Unavailabl e Source Comments Patient records contain information from all sites at [facility]. For routine questions regarding patient records, call [phone] during business hours, M-F 8:00 AM - 5:00 PM Central Time. Record requests for emergency care only can be directed to [phone] at any time.[facility] Allergies Active Allergy Reactions Criticality Noted Date [...] Maintenance Due Date Last Done Comments Chlamydia and Gonorrhea Screening 2001 HIV Screening 2001 Hepatitis C Screening 2001 Pneumococcal vaccine (0-64 y ears) (1 of 2 - PCV) 08/21/2007 11/25/2002, 05/23/2002, 02/18/2002, Additional history exists Depression Screening (Annual PHQ-2) 05/07/2023 Cervical Cancer Screening 09/11/2025 09/11/2022 DTaP,Tdap,and Td Vaccines (8 - Td or Tdap) 12/20/2032 12/20/2022, 12/25/2012, 08/23/2006, Additional history exists Hepatitis B Vaccines Completed 08/21/2002, 05/23/2002, 02/18/2002 HPV Vaccines Completed 07/15/2013, 08/2012, 12/25/2012 Meningococcal Vaccine Completed 10/12/2017, 013 COVID-19 Vaccine Completed 02/14/2023, , 04/19/2021, Additional history exists Influenza Vaccine Completed 02/14/2023, , 04/28/2021, Additional history exists
--- OUTSIDE RECORDS SUMMARY | 2023-08-22 13:52 | XMS_ITS | Clinical Summary ---
Author Name Unknown Organization [facility] Address [place], [place] [address] Care Team Providers Care Cutter Helper Name Role Phone [facility] Unavailable Unavailab Aylin Handy Primary Care Provider [phone] Allergies Active Allergy Reactions Criticality Noted Date Comments Sulfamethoxazole-Trimethoprim Hives,Itching 07/2021 Medications Medication Sig Dispensed Refills Start Date End Date Status FLUoxetine (PROZAC) 40 mg capsule Take 40 mg by mouth once daily. 01/10/2022 Active polyethylene glycoL (MIRALAX) 17 gram/dose powderIndications:Ch ronic constipation Mix 1 scoop (17 g) in liquid then take by mouth once daily. 235 g 02/17/2022 Active Clindamycin-Benzoyl Peroxide 1.2 %(1 % base) -5 % topical gel APPLY 1 APPLICATION EXTERNALLY EVERY EVENING AFTER WASHING. USE EVERY DAY FOR 30 DAYS 05/02/2022 Active tretinoin (RETIN-A) 0.025 % 0.025 % cream APPLY TOPICALLY TO FACE ONCE DAILY IN THE EVENING 05/02/2022 Active dextroamphetamine-am phetamine (ADDERALL XR) 25 mg Extended-Release capsule TAKE 1 CAPSULE BY MOUTH EVERY DAY IN THE MORNING 09/20/2022 Active mupirocin (BACTROBAN OINTMENT) ointmentIndications: Acne vulgaris Apply topically to affected area(s) two times daily. 30 g 5 10/13/2022 Active norgestimate-ethinyl estradiol, 0.25-35 mg-mcg, (ORTHO-CYCLEN) 0.25-35 mg-mcg tablet Take 1 Tablet by mouth once daily. 11/27/2022 11/27/2023 Active Active Problems Problem Noted Date Diagnosed Date Attention deficit hyperactiv ity disorder (ADHD), combined type 12/14/2022 Irritable bowel syndrome wit h both constipation and diarrhea 12/14/2022 Chronic back pain 12/14/2022 KAN (generalized anxiety disorder) 04/13/2020 Other specified eating disorder 04/13/2020 Recurrent major depressive episodes, moderate Immunizations Name Administration Dates Next Due DTaP 08/23/2006, 2,2001,10/22 DTaP-HIB (TriHIBIT) 11/25/2002 HIB PRP-T (ActHIB,Hiberix) 02/18/2002,2001 ,2001 Hepatitis A (Peds) 01/10/2008,08/23/2006 Hepatitis B (Peds) 08/21/2002,05/23/2002 Hepatitis B, Unspecified 02/18/2002 Human Papilloma Virus Vaccine 07/15/2013, 013,12/25/2012 Inactivated Polio Vaccine 08/23/2006,,2001,10/22 Influenza, IIV3 (Age 6-35 mos) 05/16/2012 Influenza, IIV3 (Age >=3 years) 03/20/2007 Influenza, IIV4 04/28/2021, 0,03/05/2017,03/02 Influenza, IIV4 (=>6mos) MDV 02/19/2020 Influenza, Live, Intranasal Laiv3 12/24/2009,01/2008 Influenza,LAIV4 Live Intrana nury (Flumist) 12/25/2012 MMR 08/21/2002 MMRV 08/23/2006 Meningococcal B 04/02/2020,12/15/2019 Meningococcal Vaccine (Menactra) 10/12/2017,0805/2012 Pneumococcal conj 7-Valent (Prevnar 7) 0 11/25/2002,05/23/2002,02/18/2002,12/20 Tdap 12/25/2012 Varicella Vaccine 08/21/2002 Family History Medical History Relation Name Comments Cancer-breast Mother Relation Name Status Comments Mother Social History Tobacco Use Types Packs/Day Years Used Date Smoking Tobacco: Never Smokeless Tobacco: Never Alcohol Use Standard Drinks/Week Comments Yes 0 (1 standard drink = 0.6 oz pur e alcohol) on [id number] drinks PHQ-2 Answer Date Recorded PHQ-2 TOTAL SCORE 1 02/10/2022 Social Connections Answer Date Recorded Frequency of Communication with Friends and Fami ly Not on file 02/10/2022 Sex and Gender Information Value Date Recorded Sex Assigned at Not on file Gender Identity Not on file Sexual Orientation Not on file Obstetrics History Last Filed Vital Signs Vital Sign Reading Time Taken Comments Blood Pressure 110/68 12/14/2022 11:12 AM CDT Pulse 112 12/14/2022 11:12 AM CDT Temperature 36.8 ??C (98.2 ??F) 09/14/2022 10:44 AM C DT Respiratory Rate 18 02/16/2022 2:53 PM CDT Oxygen Saturation 99% 09/14/2022 10:44 AM CDT Inhaled Oxygen Concentration - - Weight 56.2 kg (124 lb) 12/14/2022 11:12 AM CDT Height 166.6 cm (5' 5.6) 12/14/2022 11:12 AM CD T Body Mass Index 20.26 12/14/2022 11:12 AM CDT Plan of Treatment Health Maintenance Due Date Last Done Comments HIV for age 15-65 2016 Hepatitis C screening for age 18-79 08/21/2019 Tetanus booster 12/25/2022 12/25/2012 COVID-19 vaccine series ( season) 2023 Chlamydia for age 16-24 02/13/2023 02/13/2022 Depression screening for age 12+ 02/13/2023 02/13/2022, 02/10/2022 BMI (ht and wt on same day) for age 18+ 12/15/2023 12/14/2022, 02/10/2022 Influenza for age 9-49 01/06/2024 , 02/19/2020, 07/18/2019, Additional history exists Pap test for age 21-65 09/11/2025 09/11/2022, 2022 Pneumococcal series for age 6-64 Aged Out 11/25/2002, 05/23/2002, 02/18/2002, Additional history exists No longer eligible based on patient's age to complete this topic Tdap Completed 12/25/2012 HPV series for age 9-26 Completed 07/16/19 14, 02/07/2013, 12/25/2012 Procedures Procedure Name Priority Date/Time Associated Diagnosis Comments HPV THIN PREP Routine 09/11/2022 9:30 AM CDT Encounter for screening for malignant neoplasm of cervix GC CHLAMYDIA TRACH PROBE Routine 02/13/2022 10:15 AM CDT Pelvic pain from Last 3 Months or Most Recently Relevant to Health Maintenance Results * HPV HIGH RISK (09/11/2022 9:30 AM CDT) TYPE 16 Negative Negative 09/18/2022 3:37 PM CDT [facility] TYPE 18 Negative Negative 09/18/2022 3:37 PM CDT [facility] OTHER HIGH RISK TYPES Negative Negative 09/18/2022 3:37 PM CDT [facility] Other (Cervical) 09/11/2022 9:30 AM CDT 09/14/2022 6:58 PM CDT Narrative [facility] - 09/18/2022 3:37 PM CDT HPV types 16, 18, 31, 33, 35, 39, 45, 51, 52, 56, 58, 59, 66 and 68 DNA were undetectable or below the pre-set threshold. Methodology: Davey Kali 4800 HPV Test Mirian Joseph MD MICROBIOLOGY [facility] [address] [place] [address], * GC CHLAMYDIA TRACH PROBE (02/13/2022 10:15 AM CDT) CHLAMYDIA PROBE Negative 11:11 PM CDT [facility] N GONORRHOEAE PROBE Negative 02/13/2022 11:11 PM CDT [facility] Other VAGINAL SWAB / Unknown Non-Blood / Unknown 02/13/2022 10:15 AM CDT 02/13/2022 10:32 AM CDT Smitha LEBLANC MICROBIOLOGY [facility] [address] [place] [address], from Last 3 Months or Most Recently Relevant to Health Maintenance Additional Health Concerns Infection Onset Date Last Indicated MRSA 09/14/2022 09/14/2022 Care Teams Cutter Helper Relationship Specialty Start Date End Date Aylin Oswald PA [address] [place] [address] PCP - General Physician Fur Finisher Seamstress 02/13/22 [facility] 04/15/20
--- OUTSIDE RECORDS SUMMARY | 2023-08-22 13:52 | XMS_ITS | Clinical Summary ---
Author Name Unknown Organization [facility] Address [address] [place] [address] Care Team Providers Care Grain Origination Specialist Name Role Phone Kassi Vidales MD [facility] Lavern Trisatn MD Primary Care Provid er Allergies No known active allergies Medications Medication Sig Dispensed Refills Start Date End Date Status FLUoxetine (PROZAC) 20 MG capsule TAKE 3 CAPSULES BY MOUTH DAILY 08/27/2020 Active levonorgestrel (MIRENA) 20 MCG/24HR IUD 1 each by Intrauterine route once Active amoxicillin (AMOXIL) 875 MG tabletIndications: Strep throat Take 1 tablet (875 mg) by mouth 2 times daily 20 tablet 09/12/2020 Active Active Problems No known active problems Social History Tobacco Use Types Packs/Day Years Used Date Smoking Tobacco: Light Smoker Smokeless Tobacco: Never Comments:smoke weeds sometim es Overall Financial Resource Strain (CARDIA) Answe r Date Recorded How hard is it for you to pa y for the very basics like food, housing, medical care, and heating? Not hard at all 01/26/2021 Hunger Vital Sign Answer Date Recorded Within the past 12 months, y ou worried that your food would run out before you got the money to buy more. Never true 01/27/20 21 Within the past 12 months, t he food you bought just didn't last and you didn't have money to get more. Never true 01/26/2021 Housing Stability Vital Sign Answer Killian e Recorded In the last 12 months, was t here a time when you were not able to pay the mortgage or rent on time? No 01/26/2021 Number of Places Lived in the Last Year Not on f ile 01/26/2021 In the last 12 months, was t here a time when you did not have a steady place to sleep or slept in a intermediate (including now)? No 01/26/2021 Adolescent Education Answer Date Record ed Getting School Help Needed Not on file 01/26 Sex and Gender Information Value Date Recorded Sex Assigned at Not on file Gender Identity Not on file Sexual Orientation Not on file Last Filed Vital Signs Vital Sign Reading Time Taken Comments Blood Pressure 115/78 09/12/2020 7:12 PM CDT Pulse 74 09/12/2020 7:12 PM CDT Temperature 36.8 ??C (98.2 ??F) 09/12/2020 7:12 PM CD T Respiratory Rate 18 09/12/2020 7:12 PM CDT [...] 2001 CHLAMYDIA SCREENING 2001 Pneumococcal Vaccine: Pediatrics (0 to 5 Years) and At-Risk Patients (6 to 64 Years) (1 of 2 - PCV) 08/21/2007 11/25/2002, 05/23/2002, 02/18/2002, Additional history exists DTAP/TDAP/TD IMMUNIZATION (6 - Tdap) 2012 08/23/2006, 11/25/2002, 02/18/2002, Additional history exists HIV SCREENING 2016 HEPATITIS C SCREENING 08/21/2019 YEARLY PREVENTIVE VISIT 12/14/2020 12/15/2019, 11/13 PAP 2022 COVID-19 Vaccine (3 - 2022- season) 2023 08/15/2020, 07/18/2020 INFLUENZA VACCINE (#1) 2023 , 07/18/2019, 03/05/2017, Additional history exists PHQ-2 (once per calendar year) 2023 HEPATITIS B IMMUNIZATION Completed 003, 05/23/2002, 02/18/2002 IPV IMMUNIZATION Completed 08/23/2006, , 2001, Additional history exists HPV IMMUNIZATION Completed 07/15/2013, 08/2012, 12/25/2012 MENINGITIS IMMUNIZATION Completed 10/12/2017, 12/25 RSV MONOCLONAL ANTIBODY Aged Out No l onger eligible based on patient's age to complete this topic Procedures Procedure Name Priority Date/Time Associated Diagnosis Comments REMOVE IMPACTED EAR WAX Routine 07/18/2000 1:35 P M POURER OFF Impacted Cerumen from Last 3 Months or Most Recently Relevant to Health Maintenance Care Teams Grain Origination Specialist Relationship Specialty [place] [address] [facility] [address] [place] [address] PCP - General Pediatrics 01/26/21 Kassi Vidales MD [address] [place] [id number] Pediatric Gastroenterology 02/19/17
--- OUTSIDE RECORDS SUMMARY | 2023-08-22 13:53 | XMS_ITS | Referral Summary ---
Author Name Unknown Organization [facility] Address [address] [facility] [place] [address] Care Team Providers Care Trial Manager Name Role Phone Kassi Vidales MD Unavailable Lavern Tristan MD Primary Care Provid er Allergies No [...] or slept in a penitentiary (including now)? No 01/26/2021 Adolescent Education Answer [...] - Plan of Treatment Not on file Procedures Procedure Name Priority Date/Time Associated Diagnosis Comments REMOVE IMPACTED EAR WAX Routine 07/18/2000 1:35 P M CANINE ENFORCEMENT OFFICER Impacted Cerumen from Last 3 Months or Most Recently Relevant to Health Maintenance Care Teams Trial Manager Relationship Specialty Start [place] [address] [place], [place] [id number] PCP - General Pediatrics 01/26/21 Kassi Vidales MD [address] [place] [id number] Pediatric Gastroenterology 02/19/17
--- OUTSIDE RECORDS SUMMARY | 2023-08-22 13:53 | XMS_ITS | Clinical Summary ---
Author Name Unknown Organization [facility] Address [address] [place] [address] Care Team Providers Care Scene And Lighting Design Lecturer Name Role Phone Clinician, Not Found MD Primary Care Provider Un available Source Comments You are receiving this document as you are listed as the primary care provider,follow-up provider, or the patient has been referred to you for consultation.This is in compliance with the Medicare and[facility] EHR Incentive Program,which states Providers who transition their patient to another setting of careor provider of care or refers their patient to another provider of care shouldprovide summary care record for each transition of care or referral. [facility] Allergies No known active allergies Medications Medication Sig Dispensed Refills Start Date End Date Status drospirenone-ethinyl estradiol (SAVANNA 28) 3-0.03 MG tablet Take 1 Tablet by mouth daily. Active melatonin 5 MG tablet Take 5 mg by mouth daily at bedtime. Active Pediatric Multiple Vit-C-FA ([facility]-3 DHA) CHEW Chew and swallow 1 Tablet by mouth daily. Active FLUoxetine (PROZAC) 20 MG capsule Take 3 Capsules by mouth daily. 90 Capsule 3 06/28/2020 Active hydrOXYzine HCl (ATARAX) 25 MG tablet Take 1-4 Tablets by mouth daily as needed (anxiety or insomnia). 90 Tablet 1 06/28/2020 Active Active Problems Problem Noted Date Diagnosed Date Other specified eating disorder 04/13/2020 KAN (generalized anxiety disorder) 04/13/2020 Recurrent major depressive episodes, moderate Family History Medical History Relation Name Comments Alcohol Abuse Mother Anxiety Mother Depression Mother Anxiety Sister Depression Sister Relation Name Status Comments Mother Sister Social History Tobacco Use Types Packs/Day Years Used Date Smoking Tobacco: Never Smokeless Tobacco: Never Alcohol Use Standard Drinks/Week Comments Not Currently 0 (1 standard drink = 0.6 oz pure alcohol) 2 drinks weekly while at college Sex and Gender Information Value Date Recorded Sex Assigned at Not on file Gender Identity Not on file Sexual Orientation Not on file Last Filed Vital Signs Vital Sign Reading Time Taken Comments Blood Pressure 122/77 05/17/2020 1:10 PM ROBOTICS APPLICATION ENGINEER Pulse 86 05/17/2020 1:10 PM ROBOTICS APPLICATION ENGINEER Temperature 36.6 ??C (97.8 ??F) 05/17/2020 1:09 PM CS T Respiratory Rate - - Oxygen Saturation - - Inhaled Oxygen Concentration - - Weight 68.1 kg (150 lb 2.1 oz) 05/17/2020 1:09 P M ROBOTICS APPLICATION ENGINEER Height 166.7 cm (5' 5.63) 05/17/2020 1:09 PM CS T Body Mass Index 24.51 05/17/2020 1:09 PM ROBOTICS APPLICATION ENGINEER Plan of Treatment Health Maintenance Due Date Last Done Comments Cervical Cancer Screening Due 2001 Chlamydia 2001 Hep C Screening (Preventive Services) 2001 HIV Screening (Preventive Services) 2017 Adult Preventive Visit 08/21/2019 HepB (1) 2020 DTaP/Tdap/Td (7 - Tdap) 12/25/2022 12/26/19 13, 08/23/2006, 11/25/2002, Additional history exists COVID-19 Vaccine ( season) 2023 08/15/2020, 07/18/2020 Influenza (#1) 2023 02/19/2020, 07/05, 03/05/2017, Additional history exists Zoster/Shingles (1 of 2) 08/21/2051 Hib Completed 11/25/2002, 02/04, 2001, Additional history exists Pneumococcal Aged Out 11/25/2002, 05/07, 02/18/2002, Additional history exists No longer eligible based on patient's age to complete this topic IPV (Polio) Completed 08/23/2006, 08/05, 2001, Additional history exists HepA Completed 01/10/2008, 08/23/2006 HPV Vaccine Completed 07/15/2013, 10/0 08/2012, 12/25/2012 MCV4 Completed 10/12/2017, 12/25/2012 Care Teams Scene And Lighting Design Lecturer Relationship Specialty Start Date End Date Clinician, Not Found, [place] [address] PCP - General 04/13/20
[2023-08-22 16:20] LABS: Chlamydia DNA Amplified* NOT DETECTED (No Detected); GC DNA Amplified* NOT DETECTED (No Detected)
== END 2023-08-22 13:49 | disposition home or self-care (01) ==
PROVIDERS: PCP Student in an Organized Health Care Education/Training Program; Visit Provider Registered Nurse
DX: N92.6 Irregular menstruation, unspecified (principal)
CPT/HCPCS: 84443; 87491; 87591